=== PATIENT | female | born 1945 | race Caucasian/White ===

== ENCOUNTER 2018-11-24 09:36 | Day surgery (SDC) | payer OTHER ==
[2018-11-22 10:37] VITALS: BMI 26.6
[2018-11-24] MEDS ORDERED: LIDOCAINE HCL/PF 2% SDV 5ML VIAL ONE (09:41)
[2018-11-24] MEDS ORDERED: PROPOFOL 20 ML ONE (09:43)
[2018-11-24 12:08] VITALS: BP 110/68; PULSE 71; TEMP 97.8
--- NOTE | 2018-11-26 16:32 | PATH ---
Surgical Pathology Report Patient Name: LUIS E LONGORIA [facility]. Rec. #: [id number] /Age/Gender: 1945 (Age: 73) / F Account: [id number] Location: [facility] Taken: 11/24/2018 Received: 11/24/2018 Reported: 11/26/2018 Physicians: Marie Rodrigez M.D. Specimen(s) Received A: BX SECOND PORTION DUODENUM B: BX GASTRIC ANTRUM C: BX GE JUNCTION Clinical History GERD, dyspepsia Postoperative diagnosis: Gastritis Final Diagnosis A. SECOND PORTION OF DUODENUM, BIOPSY: DUODENAL MUCOSA WITH NO PATHOLOGIC FINDINGS. B. GASTRIC ANTRUM, BIOPSY: MILD CHRONIC GASTRITIS. IMMUNOSTAIN IS NEGATIVE FOR H. PYLORI ORGANISMS. C. GE JUNCTION, BIOPSY: ESOPHAGOGASTRIC JUNCTIONAL (SQUAMOCOLUMNAR) MUCOSA SHOWING MILD CHRONIC INFLAMMATION. NEGATIVE FOR INTESTINAL METAPLASIA. Electronically Signed Marjan Amaya M.D. Gross Description A. Received in formalin, labeled "biopsy second portion of duodenum" are 2 nelson, irregular portions of soft tissue measuring 0.2 and 0.3 cm. in greatest dimension. The specimens are submitted in toto in one cassette. B. Received in formalin, labeled "biopsy gastric antrum" is a nelson, irregular portion of soft tissue measuring 0.3 cm. in greatest dimension. The specimen is submitted in toto in one cassette. C. Received in formalin, labeled "biopsy GE junction" is a nelson, irregular portion of soft tissue measuring 0.7 cm. in greatest dimension. The specimen is submitted in toto in one cassette. 11/25/2018 [facility]11/25/2018
== END 2018-11-24 12:07 | disposition home or self-care (01) ==
LOC: FASU-ENDO 09:36
PROVIDERS: ATTEND Internal Medicine Gastroenterology
PROC: 0DB68ZX Excision of Stomach, Via Natural or Artificial Opening Endoscopic, Diagnostic (ICD-10-PCS; 2018-11-24)
PROC: 0DB48ZX Excision of Esophagogastric Junction, Via Natural or Artificial Opening Endoscopic, Diagnostic (ICD-10-PCS; 2018-11-24)
PROC: 0DB98ZX Excision of Duodenum, Via Natural or Artificial Opening Endoscopic, Diagnostic (ICD-10-PCS; principal; 2018-11-24 10:56)
DX: K29.50 Unspecified chronic gastritis without bleeding (principal); K20.9 Esophagitis, unspecified; K74.60 Unspecified cirrhosis of liver
CPT/HCPCS: 88305-TC; 88342-TC

== ENCOUNTER 2018-12-16 09:01 | Day surgery (SDC) | payer OTHER | END 2018-12-16 17:30 | disposition home or self-care (01) | LOC: JASU-SURG 09:01 ==

== ENCOUNTER 2019-03-17 12:55 | Day surgery (SDC) | payer OTHER ==
[2019-03-16 16:10] VITALS: BMI 26.8
[~2019-03-17 12:55] MED LIST: HEPARIN NA (PORCINE) 5,000 UNITS/ML 1ML VIAL SQ ONE; LIDOCAINE HCL 1%, 10 MG/ML (20ML VIAL) INF ONE
[2019-03-17] MEDS ORDERED: HEPARIN NA (PORCINE) 5,000 UNITS/ML 1ML VIAL ONE ×2 (13:27→15:56)
[2019-03-17] MEDS ORDERED: LIDOCAINE HCL 1%, 10 MG/ML (20ML VIAL) ONE (13:27)
[2019-03-17 13:57] LABS: BASO % 0.9 % (0-2.0); HEMATOCRIT 36.7 % (32.4-45.2); HEMOGLOBIN 11.8 GM/dL (10.7-15.3); MCH 23.8 pg (25.7-33.7); MEAN CELL VOLUME 74.5 fl (80-96); MEAN PLT VOLUME 7.9 fl (7.5-11.1); MONO % 8.8 % (3.8-10.2); NEUT % 56.3 % (42.8-82.8); PLATELET COUNT 208 K/MM3 (134-434); RBC 4.93 M/mm3 (3.60-5.2); RDW 16.7 % (11.6-15.6); WHITE BLOOD COUNT 6.2 K/mm3 (4.0-10.0)
[2019-03-17 14:09] LABS: INR 1.12 (0.83-1.09); PROTHROMBIN TIME (PATIENT) 13.2 SEC (9.7-13.0)
[2019-03-17 14:27] LABS: ALBUMIN 3.8 g/dl (3.4-5.0); BILIRUBIN,TOTAL 0.4 mg/dL (0.2-1); BLOOD UREA NITROGEN 10.4 mg/dL (7-18); CALCIUM 9.7 mg/dL (8.5-10.1); CREATININE 0.8 mg/dL (0.55-1.3); POTASSIUM 4.2 mmol/L (3.5-5.1); TOT PROT 8.6 g/dl (6.4-8.2)
[2019-03-17] MEDS ORDERED: MIDAZOLAM HCL 2 MG/2 ML SINGLE DOSE VIAL ONE ×2 (15:07→15:30)
[2019-03-17] MEDS ORDERED: ceFAZolin SODIUM 1 GM VIAL ONE (15:07)
[2019-03-17] MEDS ORDERED: ceFAZolin SODIUM 1 GM VIAL IVPB ONE (15:15)
[2019-03-17] MEDS ORDERED: PROPOFOL 20 ML ONE (15:21)
[2019-03-17] MEDS ORDERED: PROMETHAZINE HCL 25 MG/1 ML VIAL IVPUSH PRN (15:24)
[2019-03-17] MEDS ORDERED: ONDANSETRON 4 MG/2 ML VIAL IVPUSH PRN (15:24)
[2019-03-17] MEDS ORDERED: HYDROmorphone HCl 2 MG/ML VIAL IVPB ONE (15:27)
[2019-03-17] MEDS ORDERED: LACTATED RINGERS SOLUTION 1,000 ML IV SCH (15:30)
[2019-03-17] MEDS ORDERED: LIDOCAINE HCL 1%, 10 MG/ML (20ML VIAL) INF ONE (15:37)
--- NOTE | 2019-03-17 16:30 | HP ---
Admitting History and Physical - Admission Chief Complaint: right lower ext claudication less than 2 blocks. Limitations to Obtaining History: No Limitations - Past Medical History Cardiovascular: Yes: HTN Hepatobiliary: Yes: Cirrhosis, Hepatitis C ...: No - Past Surgical History Past Surgical History: Yes: Appendectomy, Oopherectomy - Smoking History Smoking history: Former smoker Have you smoked in the past 12 months: Yes Aproximately how many cigarettes per day: 10 If you are a former smoker, when did you quit?: 4 months ago - Alcohol/Substance Use Hx Alcohol Use: No Home Medications - Allergies Allergies/Adverse Reactions: Allergies Allergy/AdvReac Type Severity Reaction Status Date / Time No Known Allergies Allergy Verified 03/17/19 13:48 - Home Medications Home Medications: Ambulatory Orders Cholecalciferol (Vitamin D3) [Vitamin D3] 2,000 unit PO DAILY 04/12/15 Losartan Potassium 50 mg PO DAILY 04/12/15 Pantoprazole Sodium [Protonix -] 40 mg PO DAILY 04/12/15 Acetaminophen [Tylenol .Regular Strength -] 650 mg PO Q4H PRN #0 tablet propRANOLol HCL [Inderal] 40 mg PO DAILY 11/22/18 Clopidogrel Bisulfate [Plavix -] 75 mg PO DAILY #30 tablet 03/01/19 Review of Systems - Review of Systems Constitutional: reports: No Symptoms Eyes: reports: No Symptoms HENT: reports: No Symptoms Neck: reports: No Symptoms Cardiovascular: reports: No Symptoms Respiratory: reports: No Symptoms Gastrointestinal: reports: No Symptoms Genitourinary: reports: No Symptoms Musculoskeletal: reports: No Symptoms Integumentary: reports: No Symptoms Neurological: reports: No Symptoms Endocrine: reports: No Symptoms Hematology/Lymphatic: reports: No Symptoms Psychiatric: reports: No Symptoms Physical Examination Vital Signs: Vital Signs Temperature 97.9 F 03/17/19 13:47 Pulse Rate 72 03/17/19 13:47 Respiratory Rate 20 03/17/19 13:47 Blood Pressure 147/74 03/17/19 13:47 O2 Sat by Pulse Oximetry (%) 97 03/17/19 13:47 Constitutional: Yes: Well Nourished, No Distress, Calm Eyes: Yes: WNL, Conjunctiva Clear, EOM Intact HENT: Yes: WNL, Atraumatic, Normocephalic Neck: Yes: WNL, Supple, Trachea Midline Cardiovascular: Yes: WNL, Regular Rate and Rhythm Respiratory: Yes: WNL, Regular, CTA Bilaterally Gastrointestinal: Yes: WNL, Normal Bowel Sounds Musculoskeletal: Yes: WNL Extremities: Yes: WNL Edema: No Peripheral Pulses WNL: No Integumentary: Yes: WNL Neurological: Yes: WNL, Alert, Oriented ...Motor Strength: WNL Psychiatric: Yes: WNL Labs: CBC, BMP 03/17/19 13:12 03/17/19 13:12 Problem List - Problems (1) Claudication of right lower extremity Assessment/Plan: For angiogram today Code(s): I73.9 - PERIPHERAL VASCULAR DISEASE, UNSPECIFIED
[2019-03-17] MEDS ORDERED: CLOPIDOGREL BISULFATE 75 MG TABLET (FP) PO ONE ×2 (16:31→16:42)
--- NOTE | 2019-03-17 16:34 | OP ---
Operative Note - Note: Operative Date: 03/17/19 Pre-Operative Diagnosis: RLE claudication Operation: Aortogram, RLE angiogram, right external iliac artery angioplasty Findings: 95% stenosis right ext iliac artery Post-Operative Diagnosis: Same as Pre-op Surgeon: Erasmo Mosley Anesthesia: Fractional Estimated Blood Loss (mls): 50 Operative Report Dictated: Yes
[2019-03-17] MEDS ORDERED: CLOPIDOGREL BISULFATE 75 MG TABLET (FP) ONE (16:39)
--- NOTE | 2019-03-17 16:59 | EKG ---
Test Reason : Blood Pressure : / mmHG Vent. Rate : 070 BPM Atrial Rate : 070 BPM P-R Int : 140 ms QRS Dur : 084 ms QT Int : 402 ms P-R-T Axes : -02 009 034 degrees QTc Int : 434 ms NORMAL SINUS RHYTHM NONSPECIFIC ST ABNORMALITY ABNORMAL ECG NO PREVIOUS ECGS AVAILABLE Confirmed by PORFIRIO LEE MD ([id number]) on 03/17/2019 4:59:22 PM Referred By: HANK POLK Confirmed By:PORFIRIO LEE MD
[2019-03-17 18:59] VITALS: BP 146/65; PULSE 82; TEMP 97.9
--- NOTE | 2019-03-21 10:12 | OP ---
DATE OF OPERATION: 03/17/2019 PREOPERATIVE DIAGNOSIS: Right lower extremity claudication. POSTOPERATIVE DIAGNOSIS: Right lower extremity claudication. PROCEDURE: Aortogram, right lower extremity angiogram, right external iliac artery angioplasty. SURGEON: Erasmo Polk DO ANESTHESIA: Fractional. BLOOD LOSS: 50 mL. INDICATIONS: Patient is a 73-year-old female complaining of less than less than 1 block claudication. 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 The patient was cleared from a medical and cardiology standpoint and came in through ambulatory surgery. The patient was then consented for the procedure understanding all risks, benefits, alternatives then brought to the operating room. DESCRIPTION OF PROCEDURE: Once in the operating room, was laid on the operating room table in supine manner, and the area of the left and right groin was prepped and draped in a sterile surgical manner. We injected 10 mL of lidocaine 1% over the left common femoral artery. We then took our micropuncture needle, punctured left common femoral artery. Micropuncture wire was inserted. Micropuncture sheath was inserted, and a traditional 5-Urdu sheath was inserted. We then placed a 0.035 floppy guidewire up into the aorta followed by Omni Flush catheter. We then shot an aortogram via hand injection showing that the aorta and the iliac arteries were without any disease. We then placed a 0.035 floppy guidewire up and over to the right common femoral artery, and Omni Flush catheter followed. We then shot an angiogram of the right lower extremity showing that the common femoral artery and the profunda were patent. The SFA was patent. The popliteal artery was patent. However, the bigger problem that the patient has is that the right distal external iliac artery has a 95% stenosis, and that was found on our initial aortogram and our right lower extremity angiogram, so at this point, it was decided that the main issue with the patient is that she has a 95% right external iliac artery stenosis. At this point, we placed a 0.035 stiff guidewire into the SFA. IV heparin 5000 units were administered to the patient. We then went ahead and used a 5 x 8 Ultraverse balloon, and we were able to perform angioplasty of the distal right external iliac artery. Once that was completed, we shot an aortogram again showing that the right external iliac artery was now patent. There was no dissection, and there was good, brisk flow, and the patient had a good right femoral pulse now. At this point, no more intervention was needed. We brought out Omni Flush catheter up and over. We then placed StarClose device. It was then deployed in the left common femoral artery successfully, and the sheath was removed. Pressure was held for 5 minutes. After there was no more bleeding, the area was wet and dried, and Dermabond was placed. Patient tolerated the procedure without complication. Patient transferred to the PACU in stable condition. ERASMO POLK DO [id number]
== END 2019-03-17 18:45 | disposition home or self-care (01) ==
LOC: JASU-SURG 12:55
PROVIDERS: ATTEND Surgery Vascular Surgery
PROC: B40DYZZ Plain Radiography of Aorta and Bilateral Lower Extremity Arteries using Other Contrast (ICD-10-PCS; 2019-03-17)
PROC: 047H3ZZ Dilation of Right External Iliac Artery, Percutaneous Approach (ICD-10-PCS; principal; 2019-03-17 15:00)
DX: I70.211 Atherosclerosis of native arteries of extremities with intermittent claudication, right leg (principal); I10 Essential (primary) hypertension; B19.20 Unspecified viral hepatitis C without hepatic coma
CPT/HCPCS: 37220; C1725; 36415; 76000-TC-FY; 80053; 85025; 85610; 86850; 86900; 86901; 93005; 93010; 94760; J1644

== ENCOUNTER 2019-03-25 08:59 | Day surgery (SDC) | payer OTHER ==
[2019-03-25 12:46] VITALS: BMI 26.8
[2019-03-25] MEDS ORDERED: HEPARIN NA (PORCINE) 5,000 UNITS/ML 1ML VIAL ONE ×2 (13:03→14:04)
[2019-03-25] MEDS ORDERED: LIDOCAINE HCL 1%, 10 MG/ML (20ML VIAL) ONE (13:03)
[2019-03-25] MEDS ORDERED: MIDAZOLAM HCL 2 MG/2 ML SINGLE DOSE VIAL ONE ×2 (14:00→14:21)
[2019-03-25] MEDS ORDERED: SUCCINYLCHOLINE CHLORIDE 200 MG/10 ML SYRINGE ONE (14:00)
[2019-03-25] MEDS ORDERED: PROPOFOL 20 ML ONE (14:00)
[2019-03-25] MEDS ORDERED: LIDOCAINE HCL/PF 2% SDV 5ML VIAL ONE (14:04)
[2019-03-25] MEDS ORDERED: ceFAZolin SODIUM 1 GM VIAL ONE (14:04)
[2019-03-25] MEDS ORDERED: ceFAZolin SODIUM 1 GM VIAL IVPB ONE (14:10)
[2019-03-25] MEDS ORDERED: LIDOCAINE HCL 1%, 10 MG/ML (20ML VIAL) INF ONE (14:16)
--- NOTE | 2019-03-25 15:24 | HP ---
Admitting History and Physical - Admission Chief Complaint: Left lower extremity clauidication Limitations to Obtaining History: No Limitations - Past Medical History Cardiovascular: Yes: HTN Hepatobiliary: Yes: Cirrhosis, Hepatitis C - Past Surgical History Past Surgical History: Yes: Appendectomy, Oopherectomy - Smoking History Smoking history: Former smoker Have you smoked in the past 12 months: Yes Aproximately how many cigarettes per day: 10 If you are a former smoker, when did you quit?: 4 months ago - Alcohol/Substance Use Hx Alcohol Use: No Home Medications - Allergies Allergies/Adverse Reactions: Allergies Allergy/AdvReac Type Severity Reaction Status Date / Time No Known Allergies Allergy Verified 03/17/19 13:48 - Home Medications Home Medications: Ambulatory Orders Cholecalciferol (Vitamin D3) [Vitamin D3] 2,000 unit PO DAILY 04/12/15 Losartan Potassium 50 mg PO DAILY 04/12/15 Pantoprazole Sodium [Protonix -] 40 mg PO DAILY 04/12/15 Acetaminophen [Tylenol .Regular Strength -] 650 mg PO Q4H PRN #0 tablet propRANOLol HCL [Inderal] 40 mg PO DAILY 11/22/18 Clopidogrel Bisulfate [Plavix -] 75 mg PO DAILY #30 tablet 03/01/19 Review of Systems - Review of Systems Constitutional: reports: No Symptoms Eyes: reports: No Symptoms HENT: reports: No Symptoms Neck: reports: No Symptoms Cardiovascular: reports: No Symptoms Respiratory: reports: No Symptoms Gastrointestinal: reports: No Symptoms Genitourinary: reports: No Symptoms Breasts: reports: No Symptoms Reported Musculoskeletal: reports: No Symptoms Integumentary: reports: No Symptoms Neurological: reports: No Symptoms Endocrine: reports: No Symptoms Hematology/Lymphatic: reports: No Symptoms Psychiatric: reports: No Symptoms Physical Examination Vital Signs: Vital Signs Temperature 97.5 F L 03/25/19 12:40 Pulse Rate 68 03/25/19 12:40 Respiratory Rate 18 03/25/19 12:40 Blood Pressure 149/71 03/25/19 12:40 O2 Sat by Pulse Oximetry (%) 96 03/25/19 12:31 Constitutional: Yes: Well Nourished, No Distress, Calm Eyes: Yes: WNL, Conjunctiva Clear, EOM Intact HENT: Yes: WNL, Atraumatic, Normocephalic Neck: Yes: WNL, Supple, Trachea Midline Cardiovascular: Yes: WNL, Regular Rate and Rhythm Respiratory: Yes: WNL, Regular, CTA Bilaterally Gastrointestinal: Yes: WNL, Normal Bowel Sounds Musculoskeletal: Yes: WNL Extremities: Yes: WNL Edema: No Peripheral Pulses WNL: No Integumentary: Yes: WNL Neurological: Yes: WNL, Alert, Oriented ...Motor Strength: WNL Psychiatric: Yes: WNL Problem List - Problems (1) Claudication of left lower extremity Assessment/Plan: for angiogram today Code(s): I73.9 - PERIPHERAL VASCULAR DISEASE, UNSPECIFIED
--- NOTE | 2019-03-25 15:26 | OP ---
Operative Note - Note: Operative Date: 03/25/19 Pre-Operative Diagnosis: Left lower extremity claudication Operation: Aortogram, LLE angiogram, LABORATORY TECHNICIAN, SFA angioplasty, EIA/LABORATORY TECHNICIAN stent placement Findings: EIA,LABORATORY TECHNICIAN occlusion/stenosis Post-Operative Diagnosis: Same as Pre-op Surgeon: Erasmo Mosley Anesthesia: Fractional Estimated Blood Loss (mls): 50
[2019-03-25] MEDS ORDERED: ACETAMINOPHEN INJECTION 100 ML IVPB ONE (15:36)
[2019-03-25] MEDS ORDERED: ONDANSETRON 4 MG/2 ML VIAL ONE (15:36)
[2019-03-25] MEDS ORDERED: LACTATED RINGERS SOLUTION 1,000 ML IV SCH (15:45)
[2019-03-25] MEDS ORDERED: ONDANSETRON 4 MG/2 ML VIAL IVPUSH PRN (15:45)
[2019-03-25] MEDS ORDERED: ACETAMINOPHEN 1000 MG/100 ML VIAL (NON FORMULARY) IVPB ONE (15:55)
[2019-03-25] MEDS ORDERED: oxyCODONE HCL 5 MG TABLET PO PRN (17:05)
[2019-03-25] MEDS ORDERED: ACETAMINOPHEN 325 MG TABLET (FP) PO PRN (17:05)
[2019-03-25] MEDS ORDERED: ELECTROLYTE-148 SOLN 1,000 ML IV SCH (17:15)
[2019-03-25] MEDS: oxyCODONE HCL 5 MG TABLET PO PRN (18:30)
[2019-03-26 07:46] VITALS: BP 110/67; PULSE 68; TEMP 98.4
[2019-03-26 08:13] LABS: BASO % 0.4 % (0-2.0); EOS % 1.9 % (0-4.5); HEMOGLOBIN 9.8 GM/dL (10.7-15.3); LYMPH % 21.2 % (8-40); MCH 24.2 pg (25.7-33.7); MCHC 32.7 g/dl (32.0-36.0); MEAN CELL VOLUME 74.2 fl (80-96); MEAN PLT VOLUME 8.1 fl (7.5-11.1); MONO % 8.2 % (3.8-10.2); NEUT % 68.3 % (42.8-82.8); PLATELET COUNT 156 K/MM3 (134-434); RBC 4.05 M/mm3 (3.60-5.2); RDW 16.7 % (11.6-15.6); WHITE BLOOD COUNT 5.9 K/mm3 (4.0-10.0)
[2019-03-26] MEDS ORDERED: LOSARTAN POTASSIUM 50 MG TABLET (FP) PO SCH (10:00)
[2019-03-26] MEDS ORDERED: CLOPIDOGREL BISULFATE 75 MG TABLET (FP) PO SCH (10:00)
[2019-03-26] MEDS: oxyCODONE HCL 5 MG TABLET PO PRN (10:16)
--- NOTE | 2019-03-30 20:39 | OP ---
DATE OF OPERATION: 03/25/2019 PREOPERATIVE DIAGNOSIS: Left lower extremity claudication. POSTOPERATIVE DIAGNOSIS: Left lower extremity claudication. PROCEDURE: Aortogram, left common femoral artery and left superficial femoral artery angioplasty, common femoral artery stent placement. SURGEON: Erasmo Polk DO ANESTHESIA: Fractional. BLOOD LOSS: 50 mL. The patient is a 73-year-old female who comes in complaining of numbness and claudication in the left leg. She had a right external iliac artery angioplasty performed 1 week prior, and now she comes in with left lower extremity pain. She had an ultrasound performed, showing that there is a common femoral artery occlusion on the left side. It was decided that she would need an angiogram. Patient came in to ambulatory surgery. Patient was consented for the procedure, understanding all risks, benefits, alternatives. She was then taken to the operating room. Once in the operating room, she was laid in the operating room table in a supine manner. The area of the right and left groin were prepped and draped in a sterile surgical manner. We then injected 10 mL of lidocaine 1% over the right common femoral artery. Using ultrasound guidance, we were able to visualize the right common femoral artery and a micropuncture needle was used to puncture it. Micropuncture wire was inserted. Micropuncture sheath was inserted, and a 5-Slovak sheath was inserted. A 0.035 floppy guidewire was inserted in the aorta followed by Omni Flush catheter. We then shot an aortogram via hand injection, showing the aorta and the iliac arteries were without any disease. We then looked at the left common femoral artery from the aorta via hand injection, and showed that there was a focal occlusion there. At this point, we placed a 0.035 floppy guidewire down to the left common femoral artery occlusion. Omni Flush catheter followed, and we were able to get the wire down into the profunda. We then placed a 6 x 45 Crossover sheath and 5000 units of IV heparin was administered to the patient. We were then able to cross our occlusion and place our wire into the SFA. We then performed angioplasty of the common femoral artery using a 5 x 4 Ultraverse balloon. Completion angiogram showed that the occlusion was still there and it was flow limiting. We then went ahead and placed a 6 x 4 LifeStent, and that was ballooned in place using a 5 x 4 balloon. Completion angiogram now showed that the common femoral artery was patent but the SFA still was stenotic in the proximal portion. We went ahead and a 5 x 150 balloon and performed angioplasty of the SFA. Completion angiogram now showed that the SFA was patent, the stent was patent, and there was good runoff all the way into the foot, and patient had a palpable DP pulse. At this point, no more intervention was needed. We brought our sheath up and over. StarClose device was not used in this case, and we removed the sheath and pressure was held on the right groin for 5 minutes. After there was no more bleeding, the area was wet and dried and Dermabond was placed. The patient tolerated this procedure with no complications. Patient was transferred to PACU in stable condition. ERASMO POLK DO [id number]
== END 2019-03-26 12:18 | disposition home or self-care (01) ==
LOC: JWC 08:59 → JASU-SURG 08:59 → EDSTATUS 09:00 → J8W 17:54 → JASU-SURG 03-26 12:18
PROVIDERS: ATTEND Surgery Vascular Surgery
PROC: 047L3DZ Dilation of Left Femoral Artery with Intraluminal Device, Percutaneous Approach (ICD-10-PCS; 2019-03-25)
PROC: B40DYZZ Plain Radiography of Aorta and Bilateral Lower Extremity Arteries using Other Contrast (ICD-10-PCS; principal; 2019-03-25 14:00)
DX: I70.212 Atherosclerosis of native arteries of extremities with intermittent claudication, left leg (principal)
CPT/HCPCS: 37226; 76937; C1877; 36415; 76000-TC-FY; 85025; 93926-TC; 94760; G0463-25; J0131; J1644

== ENCOUNTER 2019-03-28 14:56 | Emergency (ER) | payer OTHER ==
--- NOTE | 2019-03-28 15:14 | PDOC ---
History of Present Illness - General Chief Complaint: Edema Stated Complaint: ECCHYMOSIS AND SWELLING TO POST SURGICAL SITE LEF Time Seen by Provider: 03/28/19 15:04 History Source: Patient Exam Limitations: No Limitations - History of Present Illness Initial Comments: 03/28/19 15:09 73 y/o female with bruising to left groin and abdomen after procedure by Dr. Mosley on Thursday for blocked artery. Patient had left leg done a few months ago, and Thursday had right leg done, but they went through the left side. No more swollen and bruised. Concerned about left lower abdomen pain. On Plavix. No fever or chills. No N/V/D/C. Used to be a smoker. No recent fall or trauma. Associated Symptoms: denies: fever/chills, weakness Past History - Past Medical History Allergies/Adverse Reactions: Allergies Allergy/AdvReac Type Severity Reaction Status Date / Time No Known Allergies Allergy Verified 03/28/19 15:01 Home Medications: Ambulatory Orders Cholecalciferol (Vitamin D3) [Vitamin D3] 2,000 unit PO DAILY 04/12/15 Losartan Potassium 50 mg PO DAILY 04/12/15 Pantoprazole Sodium [Protonix -] 40 mg PO DAILY 04/12/15 Acetaminophen [Tylenol .Regular Strength -] 650 mg PO Q4H PRN #0 tablet propRANOLol HCL [Inderal] 40 mg PO DAILY 11/22/18 Clopidogrel Bisulfate [Plavix -] 75 mg PO DAILY #30 tablet 03/01/19 Anemia: No Asthma: No Cancer: No Cardiac Disorders: Yes (mitral valve leak) CVA: No COPD: No CHF: No Dementia: No Diabetes: No GI Disorders: No Disorders: No HTN: Yes Hypercholesterolemia: No Liver Disease: Yes (cirrhosis) Seizures: No Thyroid Disease: No - Surgical History Abdominal Surgery: No Appendectomy: Yes Cardiac Surgery: No Cholecystectomy: No Lung Surgery: No Neurologic Surgery: Yes (BACK SURGERY) Orthopedic Surgery: Yes (BACK SURGERY) - Suicide/Smoking/Psychosocial Hx Smoking History: Former smoker Have you smoked in the past 12 months: Yes Number of Cigarettes Smoked Daily: 10 If you are a former smoker, when did you quit?: 4 months ago Hx Alcohol Use: No Drug/Substance Use Hx: No Substance Use Type: None Hx Substance Use Treatment: No Review of Systems - Review of Systems Able to Perform ROS?: Yes Is the patient limited Spanish proficient: No Constitutional: No: Chills, Fever Respiratory: No: Shortness of Breath Cardiac (ROS): No: Chest Pain, Edema ABD/GI: No: Diarrhea, Nausea, Vomiting : No: Dysuria Musculoskeletal: No: Back Pain Integumentary: Yes: Bruising Neurological: No: Numbness, Paresthesia All Other Systems: Reviewed and Negative *Physical Exam - Physical Exam General Appearance: Yes: Nourished, Appropriately Dressed. No: Apparent Distress HEENT: positive: EOMI, RAHAT, Normal ENT Inspection, Normal Voice, Pharynx Normal Neck: positive: Trachea midline, Normal Thyroid, Supple. negative: Tender, Rigid Respiratory/Chest: positive: Lungs Clear, Normal Breath Sounds. negative: Chest Tender, Respiratory Distress Cardiovascular: positive: Regular Rhythm, Regular Rate, S1, S2. negative: Edema , JVD, Murmur Vascular Pulses: Femoral (R): 4+, Femoral (L): 4+, Carotid (R): 4+, Carotid (L) : 4+, Dorsalis-Pedis (R): 4+, Doralis-Pedis (L): 4+ Gastrointestinal/Abdominal: positive: Normal Bowel Sounds, Tender (LLQ and groin tenderness, ecchymotic, no warmth noted, no RLQ or right groin pain, no RUQ or LUQ tenderness +BS), Flat, Soft. negative: Organomegaly, Pulsatile Mass Lymphatic: negative: Adenopathy, Tenderness, Other Musculoskeletal: positive: Normal Inspection. negative: CVA Tenderness Extremity: positive: Normal Capillary Refill, Normal Inspection, Normal Range of Motion, Tender, Pelvis Stable, Other (pulses 2+/4 b/l in LE, no focal deficits noted, warm). negative: Calf Tenderness Integumentary: positive: Normal Color, Dry, Warm, Ecchymosis, Bruising ( ecchymosis to left groin and LLQ abdomen noted, with tenderness). negative: Erythema, Clammy, Rash, Swelling Neurologic: positive: director of trauma II-XII NML intact, Fully Oriented, Alert, Normal Mood/ Affect, Normal Response, Motor Strength /5 ED Treatment Course - LABORATORY CBC & Chemistry Diagram: 03/28/19 15:35 03/28/19 15:35 - ADDITIONAL ORDERS Additional order review: 03/28/19 17:48 Patient doing well, labs normal Spoke with Dr. Dill in Radiology, CT abd/pelvis shows no abscess or hemorrhage, small hematoma at surgical site Will discharge home, follow up with Dr. Erasmo Mosley Tylenol, rest If worsen return to ER 03/28/19 18:05 Call put out [address] Erasmo Mosley's service, no return call Pt wishes to go home felling better. - RADIOLOGY Radiology Studies Ordered: Category Date Time Status ABDOMEN & PELVIS CT WITH CONTR [CT] Stat CT Scan 03/28/19 15:08 Ordered *DC/Admit/Observation/Transfer Diagnosis at time of Disposition: Hematoma of abdominal wall Qualifiers: Encounter type: initial encounter Qualified Code(s): S30.1XXA - Contusion of abdominal wall, initial encounter - Discharge Dispostion Disposition: HOME Condition at time of disposition: Stable Decision to Admit order: No - Referrals Referrals: Christian Zeng MD [Primary Care Provider] - - Patient Instructions Printed Discharge Instructions: DI for Hematoma (Bruise) Additional Instructions: Ice, Tylenol, rest Follow up with Dr. Mosley If worsen return to ER - Post Discharge Activity
[2019-03-28 15:15] VITALS: BMI 26.8
[2019-03-28 15:43] LABS: BASO % 3.3 % (0-2.0); EOS % 1.3 % (0-4.5); HEMATOCRIT 31.3 % (32.4-45.2); HEMOGLOBIN 10.1 GM/dl (10.7-15.3); LYMPH % 22.2 % (8-40); MCH 24.3 pg (25.7-33.7); MCHC 32.1 g/dl (32.0-36.0); MEAN CELL VOLUME 75.6 fl (80-96); MEAN PLT VOLUME 8.4 fl (7.5-11.1); MONO % 9.6 % (3.8-10.2); NEUT % 63.6 % (42.8-82.8); PLATELET COUNT 187 K/MM3 (134-434); RBC 4.14 M/mm3 (3.60-5.2); WHITE BLOOD COUNT 7.7 K/mm3 (4.0-10.8)
[2019-03-28 15:53] LABS: ALBUMIN 3.3 g/dl (3.4-5.0); BILIRUBIN,TOTAL 0.6 mg/dl (0.2-1); CALCIUM 8.9 mg/dl (8.5-10); CREATININE 0.6 mg/dl (0.55-1.3); POTASSIUM 3.8 mmol/L (3.5-5.1); TOT PROT 7.5 g/dl (6.4-8.2)
[2019-03-28 18:21] VITALS: BP 150/64; PULSE 78; TEMP 98.8
== END 2019-03-28 18:21 | disposition home or self-care (01) ==
LOC: FER 14:56
DX: S30.1XXA Contusion of abdominal wall, initial encounter (principal); Z87.891 Personal history of nicotine dependence; I10 Essential (primary) hypertension; X58.XXXA Exposure to other specified factors, initial encounter; Y93.89 Activity, other specified; Y92.89 Other specified places as the place of occurrence of the external cause
CPT/HCPCS: 36415; 74177-TC; 80053; 85025; 99282-25

== ENCOUNTER 2019-08-01 11:51 | Inpatient (IN) | payer OTHER ==
[2019-08-01] MEDS ORDERED: SODIUM CHLORIDE 1,000 ML IV STA (12:00)
--- NOTE | 2019-08-01 12:08 | PDOC ---
History of Present Illness - General Chief Complaint: Shortness of Breath Stated Complaint: SOB Time Seen by Provider: 08/01/19 12:07 History Source: Patient - History of Present Illness Initial Comments: 08/01/19 13:30 Ms. Nieves is a 73 y/o woman w/hx recent mitral valve replacement (06/28/2019) with afib s/p procedure p/w two days of shortness of breath, worsened today. She reports that for the last two days she has noted increased dyspnea on exertion as well as palpitations. She reports that today her symptoms worsened and she became increasingly short of breath, and called for EMS. EMS identified afib w/RVR (HR 130s) and administered Cardizem. Heart rate decreased to 82 prior to arrival. At this time she denies any palpitations, but reports some ongoing shortness of breath, improved from before cardizem administration. She denies any cough, fevers, chills, weakness, confusion, chest pain. Past History - Past Medical History Allergies/Adverse Reactions: Allergies Allergy/AdvReac Type Severity Reaction Status Date / Time No Known Allergies Allergy Verified 08/01/19 12:43 Home Medications: Ambulatory Orders Cholecalciferol (Vitamin D3) [Vitamin D3] 2,000 unit PO DAILY 04/12/15 Pantoprazole Sodium [Protonix -] 40 mg PO DAILY 04/12/15 Clopidogrel Bisulfate [Plavix -] 75 mg PO DAILY #30 tablet 03/01/19 Furosemide 20 mg PO DAILY 08/01/19 HYDROmorphone [Dilaudid -] 2 mg PO Q4H PRN 08/01/19 Losartan Potassium 25 mg PO DAILY 08/01/19 Metoprolol Tartrate [Lopressor] 50 mg PO BID 08/01/19 Potassium Chloride 10 meq PO DAILY 08/01/19 Spironolactone 25 mg PO DAILY 08/01/19 Warfarin Sodium 2 mg PO HS 08/01/19 Anemia: No Asthma: No Cancer: No Cardiac Disorders: Yes (mitral valve leak) CVA: No COPD: No CHF: No Dementia: No Diabetes: No GI Disorders: No Disorders: No HTN: Yes Hypercholesterolemia: No Liver Disease: Yes (cirrhosis) Seizures: No Thyroid Disease: No - Surgical History Abdominal Surgery: No Appendectomy: Yes Cardiac Surgery: No Cholecystectomy: No Lung Surgery: No Neurologic Surgery: Yes (BACK SURGERY) Orthopedic Surgery: Yes (BACK SURGERY) - Psycho Social/Smoking Cessation Hx Smoking History: Former smoker Have you smoked in the past 12 months: Yes Number of Cigarettes Smoked Daily: 10 If you are a former smoker, when did you quit?: 4 months ago Hx Alcohol Use: No Drug/Substance Use Hx: No Substance Use Type: None Hx Substance Use Treatment: No Review of Systems - Review of Systems Able to Perform ROS?: Yes Comments:: 08/01/19 13:46 ROS: GENERAL/CONSTITUTIONAL: No fever or chills. No weakness. HEAD, EYES, EARS, NOSE AND THROAT: No change in vision. No ear pain or discharge. No sore throat. CARDIOVASCULAR: Shortness of breath, palpitations. No chest pain RESPIRATORY: No cough, wheezing, or hemoptysis. GASTROINTESTINAL: No nausea, vomiting, diarrhea or constipation. GENITOURINARY: No dysuria, frequency, or change in urination. MUSCULOSKELETAL: No joint or muscle swelling or pain. No neck or back pain. SKIN: No rash NEUROLOGIC: No headache, vertigo, loss of consciousness, or change in strength/ sensation. ENDOCRINE: No increased thirst. No abnormal weight change HEMATOLOGIC/LYMPHATIC: No anemia, easy bleeding, or history of blood clots. ALLERGIC/IMMUNOLOGIC: No hives or skin allergy. *Physical Exam - Physical Exam 08/01/19 13:47 PE: GENERAL: Awake, alert, and fully oriented, in no acute distress HEAD: No signs of trauma, normocephalic, atraumatic EYES: PERRLA, EOMI, sclera anicteric, conjunctiva clear ENT: Auricles normal inspection, hearing grossly normal, nares patent, oropharynx clear without exudates. Moist mucosa NECK: Normal ROM, supple, no lymphadenopathy, JVD, or masses LUNGS: No distress, speaks full sentences, clear to auscultation bilaterally HEART: Regular rate and rhythm, normal S1 and S2, no murmurs, rubs or gallops, peripheral pulses normal and equal bilaterally. ABDOMEN: Soft, nontender, normoactive bowel sounds. No guarding, no rebound. No masses EXTREMITIES : Normal inspection, Normal range of motion, no edema. No clubbing or cyanosis NEUROLOGICAL: Cranial nerves II through XII grossly intact. Normal speech, normal gait, no focal sensorimotor deficits SKIN: Warm, Dry, normal turgor, no rashes or lesions noted ED Treatment Course - LABORATORY CBC & Chemistry Diagram: 08/01/19 12:25 08/01/19 12:25 Medical Decision Making - Medical Decision Making 08/01/19 13:40 73F w/recent mitral valve replacement with resultant afib previously requiring cardioversion p/w shortness of breath, afib w/RVR identified prior to arrival. ACS, CHF, infection also possible as cause of rvr. Plan: CBC CMP Cardiac profile PT/INR, APTT EKG CXR Cardizem 10mg po Cardiology consult (Dr. Anjana Baca) Dispo: Admit telemetry obs --- Case discussed with Dr. Baca. Plan for telemetry obs. She will evaluate today. 08/01/19 13:47 On reassessment of HR - 82 s/p Cardizem 10mg po Discharge - Discharge Information Problems reviewed: Yes Clinical Impression/Diagnosis: Atrial fibrillation with RVR Condition: Stable - Admission Yes - Follow up/Referral Referrals: Christian Zeng MD [Primary Care Provider] - - Patient Discharge Instructions - Post Discharge Activity
[2019-08-01 12:40] LABS: HEMOGLOBIN 9.2 GM/dL (10.7-15.3); LYMPH % 23.1 % (8-40); MCH 23.8 pg (25.7-33.7); MCHC 30.8 g/dl (32.0-36.0); MEAN CELL VOLUME 77.2 fl (80-96); MEAN PLT VOLUME 8.1 fl (7.5-11.1); NEUT % 65.9 % (42.8-82.8); PLATELET COUNT 203 K/MM3 (134-434); RBC 3.89 M/mm3 (3.60-5.2); RDW 20.7 % (11.6-15.6); WHITE BLOOD COUNT 6.8 K/mm3 (4.0-10.0)
--- NOTE | 2019-08-01 12:48 | PDOC ---
Documentation entered by Darlene Sheppard SCRIBE, acting as scribe for Netta Hernández MD. Netta Hernández MD: This documentation has been prepared by the [employer] Brenda, SCRIBE, under my direction and personally reviewed by me in its entirety. I confirm that the documentation accurately reflects all work, treatment, procedures, and medical decision making performed by me. Attending Attestation - Resident Resident Name: SilviaDiego - ED Attending Attestation I have performed the following: I have examined & evaluated the patient, The case was reviewed & discussed with the resident, I agree w/resident's findings & plan, Exceptions are as noted - HPI HPI: 08/01/19 12:26 The patient is a 73 year old female with a PMH of HTN, status post mitral valve replacement (currently on Plavix) Patient presents to the ER via EMS due to shortness of breath, weakness. Found to have atrial fibrillation by medics. Patient was given Cardizem with improvement of her rapid rate. Patient currently denies chest pain. Still remains a bit weak, short of breath. No fevers or chills. No cough Surgical Hx: Appendectomy, Back surgery Social Hx: Tobacco use PCP: Christian Zeng 08/01/19 12:46 - Physicial Exam PE: 08/01/19 12:47 GENERAL: The patient is in no acute distress. ENT: Ears normal, nares patent, oropharynx clear without exudates. Moist mucous membranes. NECK: Normal range of motion, supple LUNGS: Irregularly irregular, rate is normal, no murmurs HEART:Regular rate and rhythm, normal S1 and S2 without murmur, rub or gallop. ABDOMEN: Soft, nontender, normoactive bowel sounds. EXTREMITIES: Normal range of motion, no edema. NEUROLOGICAL: Cranial nerves II through XII grossly intact. Normal speech. No focal neurological deficits. SKIN: Warm, Dry, normal turgor, no rashes or lesions noted. - Medical Decision Making 08/01/19 12:47 EKG: Atrial fibrillation, rate of 88 bpm, axis is normal, intervals are normal, artifact at baseline, no obvious ST elevations or depressions, T waves are diffusely flattened, no pathological Q 08/01/19 12:48 Laboratory Tests 03/28/19 08/01/19 15:35 12:25 WBC 7.7 6.8 Hgb 10.1 L 9.2 L Hct 31.3 L D 30.0 L Plt Count 187 203 D Chest x-ray: We will contact Dr. Baca 08/01/19 13:29 Laboratory Tests 08/01/19 08/01/19 12:25 12:25 BUN 19.4 H Creatinine 1.0 Creatine Kinase 137 Troponin I < 0.[address] Baca She agrees with observation admission Anticoagulation per Dr Baca Clinical impression: post op Afib, initial presentation
[2019-08-01] MEDS ORDERED: dilTIAZem HCL 30 MG TABLET (FP) PO ONE (12:52)
[2019-08-01 12:53] LABS: INR 1.85 (0.83-1.09)
[2019-08-01 12:56] LABS: ACTIVATED PTT 38.5 SECONDS (25.2-36.5)
[2019-08-01] MEDS ORDERED: dilTIAZem HCL 30 MG TABLET (FP) ONE (13:07)
--- NOTE | 2019-08-01 13:19 | EKG ---
Test Reason : Blood Pressure : / mmHG Vent. Rate : 088 BPM Atrial Rate : 073 BPM P-R Int : 000 ms QRS Dur : 092 ms QT Int : 458 ms P-R-T Axes : 000 -03 209 degrees QTc Int : 554 ms ATRIAL FIBRILLATION INCOMPLETE RIGHT BUNDLE BRANCH BLOCK NONSPECIFIC T WAVE ABNORMALITY ABNORMAL ECG WHEN COMPARED WITH ECG OF 17-MAR-2019 13:22, ATRIAL FIBRILLATION HAS REPLACED SINUS RHYTHM T WAVE VARIATION Confirmed by MUMTAZ CUI, CELESTE ([id number]) on 08/01/2019 1:19:11 PM Referred By: Confirmed By:CELESTE PANDYA MD
[2019-08-01 13:28] LABS: ALBUMIN 3.2 g/dl (3.4-5.0); BILIRUBIN,TOTAL 0.4 mg/dL (0.2-1); BLOOD UREA NITROGEN 19.4 mg/dL (7-18); CALCIUM 8.9 mg/dL (8.5-10.1); TOT PROT 7.5 g/dl (6.4-8.2)
[2019-08-01 13:40] LABS: ANISOCYTOSIS 1+
--- NOTE | 2019-08-01 13:58 | HP ---
Admitting History and Physical - Primary Care Physician PCP: Christian Zeng - Admission Chief Complaint: shortness of breath and palpations History Source: Patient Limitations to Obtaining History: No Limitations - Past Medical History Cardiovascular: Yes: HTN Hepatobiliary: Yes: Cirrhosis, Hepatitis C - Past Surgical History Past Surgical History: Yes: Appendectomy, Oopherectomy, Valve Replacement (MVR(t ) 06/28/19) - Smoking History Smoking history: Former smoker Have you smoked in the past 12 months: Yes Aproximately how many cigarettes per day: 10 If you are a former smoker, when did you quit?: 4 months ago - Alcohol/Substance Use Hx Alcohol Use: No - Social History Usual Living Arrangement: Yes: Alone, Other (staying with daughter for last month) ADL: Family Assistance Occupation: retired History of Recent Travel: No Home Medications - Allergies Allergies/Adverse Reactions: Allergies Allergy/AdvReac Type Severity Reaction Status Date / Time No Known Allergies Allergy Verified 08/01/19 12:43 - Home Medications Home Medications: Ambulatory Orders Cholecalciferol (Vitamin D3) [Vitamin D3] 2,000 unit PO DAILY 04/12/15 Pantoprazole Sodium [Protonix -] 40 mg PO DAILY 04/12/15 Clopidogrel Bisulfate [Plavix -] 75 mg PO DAILY #30 tablet 03/01/19 Furosemide 20 mg PO DAILY 08/01/19 HYDROmorphone [Dilaudid -] 2 mg PO Q4H PRN 08/01/19 Losartan Potassium 25 mg PO DAILY 08/01/19 Metoprolol Tartrate [Lopressor] 50 mg PO BID 08/01/19 Potassium Chloride 10 meq PO DAILY 08/01/19 Spironolactone 25 mg PO DAILY 08/01/19 Warfarin Sodium 2 mg PO HS 08/01/19 Family Medical History Family History: Unremarkable Review of Systems - Review of Systems Constitutional: reports: No Symptoms Eyes: reports: No Symptoms HENT: reports: No Symptoms Neck: reports: No Symptoms Cardiovascular: reports: Palpitations, Shortness of Breath Respiratory: reports: Cough, Exercise Intolerance, SOB, SOB on Exertion Gastrointestinal: reports: No Symptoms Genitourinary: reports: No Symptoms Breasts: reports: No Symptoms Reported Musculoskeletal: reports: No Symptoms Integumentary: reports: No Symptoms Neurological: reports: No Symptoms Endocrine: reports: No Symptoms Hematology/Lymphatic: reports: No Symptoms Psychiatric: reports: No Symptoms Physical Examination Vital Signs: Vital Signs Temperature 97.5 F L 08/01/19 12:15 Pulse Rate 107 H 08/01/19 13:00 Respiratory Rate 18 08/01/19 13:00 Blood Pressure 122/104 H 08/01/19 13:00 O2 Sat by Pulse Oximetry (%) 100 08/01/19 13:00 Constitutional: Yes: Well Nourished, Calm, Mild Distress (from SOB) Eyes: Yes: WNL, Conjunctiva Clear, EOM Intact HENT: Yes: WNL, Atraumatic, Normocephalic Neck: Yes: WNL Cardiovascular: Yes: Tachycardia, Pulse Irregular, Other (AF with RVR) Gastrointestinal: Yes: WNL, Normal Bowel Sounds ...Rectal Exam: Yes: Deferred Breast(s): Yes: WNL Musculoskeletal: Yes: WNL Extremities: Yes: WNL Edema: No Peripheral Pulses WNL: Yes Peripheral Pulses: Left Radial: 2+, Right Radial: 2+, Left Doralis Pedis: 2+, Right Dorsalis Pedis: 2+, Left Femoral: 2+, Right Femoral: 2+ Neurological: Yes: WNL, Alert, Oriented ...Motor Strength: WNL Psychiatric: Yes: WNL Labs: CBC, BMP 08/01/19 12:25 08/01/19 12:25 Imaging - Results Chest X-ray: Image Reviewed (sternal wires noted. BL effusions with increased PVC) Problem List - Problems (1) Prophylactic measure Assessment/Plan: FEN Fluids: no additional fluids-dose of lasix to be given Electrolytes: monitor & replete as needed Nutrition: low sodium diet DVT moderate risk on coumadin Dispo admit to tele full code discharge planning Code(s): Z29.9 - ENCOUNTER FOR PROPHYLACTIC MEASURES, UNSPECIFIED (2) HCV (hepatitis C virus) Assessment/Plan: chronic HCV Code(s): B19.20 - UNSPECIFIED VIRAL HEPATITIS C WITHOUT HEPATIC COMA (3) Cirrhosis Assessment/Plan: cirrhosis on imaging Code(s): K74.60 - UNSPECIFIED CIRRHOSIS OF LIVER (4) S/P MVR (mitral valve replacement) Assessment/Plan: recent MVR(t) 07/14 -follows with Dr Baca at [facility] TTE ordered to assess valve and fluid status Code(s): Z95.2 - PRESENCE OF PROSTHETIC HEART VALVE (5) HTN (hypertension) Code(s): I10 - ESSENTIAL (PRIMARY) HYPERTENSION (6) Anticoagulated on Coumadin Assessment/Plan: INR subtherapeutic resume coumadin and reassess INR in am for dose adjustment Code(s): Z79.01 - UROLOGY PHYSICIAN ASSISTANT (CURRENT) USE OF ANTICOAGULANTS (7) Atrial fibrillation with RVR Assessment/Plan: HR 130s in ED-responded to diltiazem 10mg IVP down to 80s remained in AF on metoprol at home c/w metoprol 100mg bid start diltiazem 30mg q6h uptitrating if needed TSH 11, will send T3/4 Code(s): I48.91 - UNSPECIFIED ATRIAL FIBRILLATION (8) Elevated brain natriuretic peptide (BNP) level Assessment/Plan: BNP elevated t0 10,700 lasix 40mg IVP given in ED will start lasix 40mg IV bid and reassess in am Code(s): R79.89 - OTHER SPECIFIED ABNORMAL FINDINGS OF BLOOD CHEMISTRY Visit type - Emergency Visit Emergency Visit: Yes ED Registration Date: 08/01/19 Care time: The patient presented to the Emergency Department on the above date and was hospitalized for further evaluation of their emergent condition. - New Patient This patient is new to me today: Yes Date on this admission: 08/01/19 - Critical Care Critical Care patient: No
[2019-08-01] MEDS ORDERED: dilTIAZem HCL 50 MG/10 ML - 10 ML VIAL IVPUSH ONE (14:16)
[2019-08-01] MEDS ORDERED: dilTIAZem HCL 125 MG/25 ML - 25 ML VIAL ONE (15:26)
[2019-08-01 15:41] LABS: EPI CELLS 6.6 /HPF (0-5/HPF); HYALINE CASTS 17 /lpf (0-8); PH,URINE 5.5 (5.0-8.0); URINE APPEARANCE CLEAR; URINE BACTERIA 47.8 /hpf (NEGATIVE); URINE BILIRUBIN NEGATIVE (NEGATIVE); URINE COLOR YELLOW; URINE GLUCOSE (UA) NEGATIVE (NEGATIVE); URINE KETONE NEGATIVE (NEGATIVE); URINE LEUK ESTERASE NEGATIVE (NEGATIVE); URINE NITRITE NEGATIVE (NEGATIVE); URINE PROTEIN 3+ (NEGATIVE); URINE RBC 1 /hpf (0-4); URINE WBC 4 /hpf (0-5)
[2019-08-01 16:06] LABS: MAGNESIUM 1.8 mg/dL (1.8-2.4); N-TERMINAL BNP 10698.7 pg/ml (5-125)
[2019-08-01] MEDS ORDERED: FUROSEMIDE 40 MG/4 ML INJECTABLE VIAL IVPUSH ONE (16:13)
[2019-08-01] MEDS ORDERED: FUROSEMIDE 40 MG/4 ML INJECTABLE VIAL ONE (16:42)
--- NOTE | 2019-08-01 17:20 | CON.CARD ---
Consult Consult Specialty:: Cardiology Referred by:: Medicine Reason for Consultation:: afib, CHF - History of Present Illness Chief Complaint: shortness of breath History of Present Illness: 73 h/o HTN, mitral stenosis s/p bioMVR and TV repair 06/28/2019, pulm HTN, PAD, afib p/w dyspnea on exertion. Sees me for cardio, recently had MVR, complicated by post op afib now on coumadin. Was s/p cardioversion at [facility] now back in afib, have been increasing metoprolol as an outpatient. Palpitations, dyspnea were improving until two days ago became more short of breath and felt racing heart with even minimal activity. Called EMS today, was in afib with rvr improved with cardizem. Currently no chest pain, palps, dizziness, still short of breath. no edema - Past Medical History Cardio/Vascular: Yes: HTN Hepatobiliary: Yes: Cirrhosis, Hepatitis C - Past Surgical History Past Surgical History: Yes: Appendectomy, Oopherectomy, Valve Replacement (MVR(t ) 06/28/19) - Alcohol/Substance Use Hx Alcohol Use: No - Smoking History Smoking history: Former smoker Have you smoked in the past 12 months: Yes Aproximately how many cigarettes per day: 10 If you are a former smoker, when did you quit?: 4 months ago - Social History ADL: Family Assistance Home Medications - Allergies Allergies/Adverse Reactions: Allergies Allergy/AdvReac Type Severity Reaction Status Date / Time No Known Allergies Allergy Verified 08/01/19 12:43 - Home Medications Home Medications: Ambulatory Orders Cholecalciferol (Vitamin D3) [Vitamin D3] 2,000 unit PO DAILY 04/12/15 Pantoprazole Sodium [Protonix -] 40 mg PO DAILY 04/12/15 Clopidogrel Bisulfate [Plavix -] 75 mg PO DAILY #30 tablet 03/01/19 Furosemide 20 mg PO DAILY 08/01/19 HYDROmorphone [Dilaudid -] 2 mg PO Q4H PRN 08/01/19 Losartan Potassium 25 mg PO DAILY 08/01/19 Metoprolol Tartrate [Lopressor] 50 mg PO BID 08/01/19 Potassium Chloride 10 meq PO DAILY 08/01/19 Spironolactone 25 mg PO DAILY 08/01/19 Warfarin Sodium 2 mg PO HS 08/01/19 Family Medical History Family History: Unremarkable Review of Systems - Review of Systems Constitutional: reports: No Symptoms Eyes: reports: No Symptoms HENT: reports: No Symptoms Neck: reports: No Symptoms Cardiovascular: reports: No Symptoms Respiratory: reports: No Symptoms Gastrointestinal: reports: No Symptoms Genitourinary: reports: No Symptoms Musculoskeletal: reports: No Symptoms Integumentary: reports: No Symptoms Neurological: reports: No Symptoms Endocrine: reports: No Symptoms Hematology/Lymphatic: reports: No Symptoms Psychiatric: reports: No Symptoms Vital Signs: Vital Signs Temperature 97.2 F L 08/01/19 16:30 Pulse Rate 86 08/01/19 16:30 Respiratory Rate 19 08/01/19 16:30 Blood Pressure 123/75 08/01/19 16:30 O2 Sat by Pulse Oximetry (%) 99 08/01/19 16:30 Constitutional: Yes: No Distress, Calm Eyes: Yes: Conjunctiva Clear, EOM Intact HENT: Yes: Atraumatic, Normocephalic Respiratory: Yes: Regular, Rales, Rhonchi Gastrointestinal: Yes: Normal Bowel Sounds, Soft Cardiovascular: Yes: Tachycardia, Pulse Irregular Heart Sounds: Yes: S1, S2 Extremities: No: Cold Edema: No Integumentary: No: Jaundice Neurological: Yes: Alert, Oriented Psychiatric: No: Agitated - Other Data Labs, Other Data: CBC, BMP 08/01/19 12:25 08/01/19 12:25 INR, PTT INR 1.85 (0.83-1.09) H 08/01/19 12:25 Troponin, BNP 08/01/19 08/01/19 12:25 12:25 Troponin I < 0.02 B-Natriuretic Peptide 48587.7 H Troponin, BNP 08/01/19 08/01/19 12:25 12:25 Troponin I < 0.02 B-Natriuretic Peptide 48765.7 H Assessment/Plan bodyEKG 06/2019 afib, IRBBB, no ischemic changes, rate 114 bpm echo 06/2019 post op LV not well seen, prob borderline nl LV function (EF 50%), nl RV size, function, s/p bioMVR mean gradient 10 mmHg at HR 115, minimal MR, s/ p TV repair, no TR TANYA 01/2019 nl LV size/function, mild to mod dec RV function, mild RV dilation, mild AR, MV leaflets thickened and severely calcified/immobile, mean graident 12 mmHg, PG 29 mmHg, MVA by planimetry 1.08 cm2, mod to severe central jet of MR , palmer score at least 12, severe post MAC, mild DC, no LA thrombus, lipomatous interatrial septum, sm pericardial effusion EKG: afib, no ischemic changes CXR: congestive changes and pastor pleural effusions tele: afib with rate 90s-100s, episodes 130s-140s atrial fibrillation - cont home metoprolol succinate 100 mg BID, started on diltiazem 30 mg Q6H - monitoring on tele - cont warfarin, goal INR 2-3 acute diastolic CHF - likely in setting of afib with RVR - most recent echo post op at [facility] EF 50% with LV not well seen, stable bioMVR - repeat echo ordered - cont IV lasix - monitor Cr, lytes, daily weights HTN - cont home meds PAD - cont plavix, coumadin s/p MVR, TV repair - echo as above
[2019-08-01] MEDS ORDERED: dilTIAZem HCL 25 MG/5 ML - 5 ML VIAL IVPUSH PRN (17:24)
[2019-08-01] MEDS ORDERED: WARFARIN NA 2 MG TABLET (UD) PO SCH (18:00)
[2019-08-01] MEDS: dilTIAZem HCL 30 MG TABLET (FP) PO SCH (18:22)
[2019-08-01] MEDS ORDERED: MELATONIN 5 MG TABLETS PO PRN (20:58)
[2019-08-01] MEDS: METOPROLOL TARTRATE 50 MG TABLET (FP) PO SCH (21:36)
[2019-08-01] MEDS ORDERED: METOPROLOL TARTRATE 50 MG TABLET (FP) PO SCH (22:00)
[2019-08-02] MEDS: dilTIAZem HCL 30 MG TABLET (FP) PO SCH ×2 (01:14→06:27)
[2019-08-02] MEDS: FUROSEMIDE 40 MG/4 ML INJECTABLE VIAL IVPUSH SCH ×2 (06:27→13:40)
[2019-08-02 06:41] LABS: BASO % 0.7 % (0-2.0); EOS % 2.7 % (0-4.5); HEMATOCRIT 28.2 % (32.4-45.2); HEMOGLOBIN 9.1 GM/dL (10.7-15.3); LYMPH % 18.8 % (8-40); MCH 24.3 pg (25.7-33.7); MCHC 32.1 g/dl (32.0-36.0); MEAN CELL VOLUME 75.7 fl (80-96); MONO % 8.3 % (3.8-10.2); NEUT % 69.5 % (42.8-82.8); RBC 3.73 M/mm3 (3.60-5.2); RDW 20.8 % (11.6-15.6); WHITE BLOOD COUNT 6.6 K/mm3 (4.0-10.0)
[2019-08-02 07:13] LABS: ALBUMIN 3.2 g/dl (3.4-5.0); BILIRUBIN,TOTAL 0.4 mg/dL (0.2-1); BLOOD UREA NITROGEN 17.6 mg/dL (7-18); CALCIUM 8.6 mg/dL (8.5-10.1); CREATININE 0.8 mg/dL (0.55-1.3); MAGNESIUM 1.5 mg/dL (1.8-2.4); N-TERMINAL BNP 7270.1 pg/ml (5-125); POTASSIUM 3.7 mmol/L (3.5-5.1); TOT PROT 7.3 g/dl (6.4-8.2)
[2019-08-02] MEDS: ACETAMINOPHEN 325 MG TABLET (FP) PO PRN ×2 (07:50→18:36)
[2019-08-02] MEDS ORDERED: ACETAMINOPHEN 325 MG TABLET (FP) ONE (08:10)
--- NOTE | 2019-08-02 09:37 | PN ---
Physical Exam: SUBJECTIVE: Patient seen and examined, at the bedside. no chest pain or shortness of breath. having back pain after straining to get up from a sitting position. OBJECTIVE: back pain: treat with lidoderm patches, ultram 25 x 1, physical therapy, warm compresses ----- Patient is a 73 year old female with a significant past medical history of hypertention, mitral stenosis s/p bioMVR and TV repair 06/28/2019, pulm HTN, PAD , afib p/w dyspnea on exertion. She recently had MVR, complicated by post op afib now on coumadin. [place] [facility] afib. Became more short of breath 2 days prior to admission with racing heart with minimal activity. Brought in by EMS and was found to be in afib with rvr which improved with cardizem. Vital Signs Period Temp Pulse Resp BP Sys/Grullon Pulse Ox Last 24 Hr 97.2 F-98.3 F 75-131 18-32 79-133/57-104 93-100 GENERAL: The patient is awake, alert, and fully oriented, in no acute distress. HEAD: Normal with no signs of trauma. EYES: PERRL, extraocular movements intact, sclera anicteric, conjunctiva clear. No ptosis. ENT: Ears normal, nares patent, oropharynx clear without exudates NECK: Trachea midline, full range of motion, supple. LUNGS: right lungs with mild congestion, left lung clear HEART: irregular, 90s ABDOMEN: Soft, nontender, nondistended, normoactive bowel sounds EXTREMITIES: 2+ pulses, warm, well-perfused, no edema. NEUROLOGICAL: Normal speech, gait not observed. PSYCH: Normal mood, normal affect. SKIN: Warm, dry, normal turgor, no rashes or lesions noted Laboratory Results - last 24 hr 08/01/19 08/01/19 08/01/19 12:25 12:25 12:25 WBC 6.8 RBC 3.89 Hgb 9.2 L Hct 30.0 L MCV 77.2 L MCH 23.8 L MCHC 30.8 L RDW 20.7 H Plt Count 203 D MPV 8.1 Absolute Neuts (auto) 4.5 Neutrophils % 65.9 Lymphocytes % 23.1 Monocytes % 8.0 Eosinophils % 2.0 Basophils % 1.0 Nucleated RBC % 0 Hypochromia 1+ Polychromasia 1+ Anisocytosis 1+ Microcytosis 1+ PT with INR 22.00 H INR 1.85 H PTT (Actin FS) 38.5 H Sodium Potassium Chloride Carbon Dioxide Anion Gap BUN Creatinine Est GFR (CKD-EPI)AfAm Est GFR (CKD-EPI)NonAf Random Glucose Calcium Magnesium Total Bilirubin AST ALT Alkaline Phosphatase Creatine Kinase 137 Troponin I < 0.02 B-Natriuretic Peptide Total Protein Albumin TSH Thyroxine (T4) Urine Color Urine Appearance Urine pH Ur Specific Ola Urine Protein Urine Glucose (UA) Urine Ketones Urine Blood Urine Nitrite Urine Bilirubin Urine Urobilinogen Ur Leukocyte Esterase Urine WBC (Auto) Urine RBC (Auto) Urine Casts (Auto) U Epithel Cells (Auto) Urine Bacteria (Auto) 08/01/19 08/01/19 08/01/19 12:25 12:25 15:30 WBC RBC Hgb Hct MCV MCH MCHC RDW Plt Count MPV Absolute Neuts (auto) Neutrophils % Lymphocytes % Monocytes % Eosinophils % Basophils % Nucleated RBC % Hypochromia Polychromasia Anisocytosis Microcytosis PT with INR INR PTT (Actin FS) Sodium 139 Potassium 4.0 Chloride 108 H Carbon Dioxide 23 Anion Gap 8 BUN 19.4 H Creatinine 1.0 Est GFR (CKD-EPI)AfAm 64.73 Est GFR (CKD-EPI)NonAf 55.85 Random Glucose 104 Calcium 8.9 Magnesium 1.8 Total Bilirubin 0.4 AST 12 L ALT 15 Alkaline Phosphatase 120 H Creatine Kinase Troponin I B-Natriuretic Peptide 87260.7 H Total Protein 7.5 Albumin 3.2 L TSH 11.60 H Thyroxine (T4) Urine Color Yellow Urine Appearance Clear Urine pH 5.5 Ur Specific Ola 1.027 Urine Protein 3+ H Urine Glucose (UA) Negative Urine Ketones Negative Urine Blood Negative Urine Nitrite Negative Urine Bilirubin Negative Urine Urobilinogen 1.0 Ur Leukocyte Esterase Negative Urine WBC (Auto) 4 Urine RBC (Auto) 1 Urine Casts (Auto) 17 U Epithel Cells (Auto) 6.6 Urine Bacteria (Auto) 47.8 08/02/19 08/02/19 08/02/19 05:25 05:25 05:25 WBC 6.6 RBC 3.73 Hgb 9.1 L Hct 28.2 L MCV 75.7 L MCH 24.3 L MCHC 32.1 RDW 20.8 H Plt Count MPV Absolute Neuts (auto) 4.6 Neutrophils % 69.5 Lymphocytes % 18.8 Monocytes % 8.3 Eosinophils % 2.7 Basophils % 0.7 Nucleated RBC % 0 Hypochromia Polychromasia Anisocytosis Microcytosis PT with INR INR PTT (Actin FS) Sodium 139 Potassium 3.7 Chloride 106 Carbon Dioxide 24 Anion Gap 9 BUN 17.6 Creatinine 0.8 Est GFR (CKD-EPI)AfAm 84.77 Est GFR (CKD-EPI)NonAf 73.14 Random Glucose 97 Calcium 8.6 Magnesium 1.5 L Total Bilirubin 0.4 AST 13 L ALT 14 Alkaline Phosphatase 111 Creatine Kinase Troponin I B-Natriuretic Peptide 7270.1 H Total Protein 7.3 Albumin 3.2 L TSH Thyroxine (T4) 8.0 Urine Color Urine Appearance Urine pH Ur Specific Ola Urine Protein Urine Glucose (UA) Urine Ketones Urine Blood Urine Nitrite Urine Bilirubin Urine Urobilinogen Ur Leukocyte Esterase Urine WBC (Auto) Urine RBC (Auto) Urine Casts (Auto) U Epithel Cells (Auto) Urine Bacteria (Auto) Active Medications Generic Name Dose Route Start Last Admin Trade Name Freq PRN Reason Stop Dose Admin Acetaminophen 650 mg 08/02/19 09:24 Tylenol - PO Q6H PRN PAIN LEVEL 1-5 Cholecalciferol 2,000 unit 08/02/19 10:00 Vitamin D3 - PO DAILY [facility] Clopidogrel Bisulfate 75 mg 08/02/19 10:00 Plavix - PO DAILY [facility] Diltiazem HCl 30 mg 08/01/19 18:00 08/02/19 06:27 Cardizem - PO 30 mg Q6HPO [facility] Administration Diltiazem HCl 10 mg 08/01/19 17:24 Cardizem Injection - IVPUSH Q4H PRN TACHYCARDIA Furosemide 40 mg 08/02/19 06:00 08/02/19 06:27 Lasix Injection - IVPUSH 40 mg BID@0600,1400 [facility] Administration Losartan Potassium 25 mg 08/02/19 10:00 Cozaar - PO DAILY [facility] Melatonin 5 mg 08/01/19 20:58 08/02/19 01:14 Melatonin PO 5 mg HS PRN Administration INSOMNIA Metoprolol Tartrate 100 mg 08/01/19 22:00 08/01/19 21:36 Lopressor - PO 100 mg BID [facility] Administration Pantoprazole Sodium 40 mg 08/02/19 10:00 Protonix - PO DAILY [facility] Spironolactone 25 mg 08/02/19 10:00 Aldactone - PO DAILY [facility] Warfarin Sodium 2 mg 08/01/19 18:00 08/01/19 18:21 Coumadin - PO 2 mg DAILY@1800 [facility] Administration ASSESSMENT/PLAN: Problem List - Problems (1) Anticoagulated on Coumadin Assessment/Plan: check inr now on coumadin for afib on metoprolol succinate 100 mg BID, inc diltiazem to 60 mg Q6H monitor on tele ing goal 2-3 per cardiology, has event monitor and EP follow [place] [facility] [place] Code(s): Z79.01 - VENDETTE (CURRENT) USE OF ANTICOAGULANTS (2) Atrial fibrillation with RVR Assessment/Plan: check inr now on coumadin for afib on metoprolol succinate 100 mg BID, inc diltiazem to 60 mg Q6H monitor on tele ing goal 2-3 per cardiology, has event monitor and EP follow [place] planned [place] [facility] [place] Code(s): I48.91 - UNSPECIFIED ATRIAL FIBRILLATION (3) Elevated brain natriuretic peptide (BNP) level Assessment/Plan: trended down Code(s): R79.89 - OTHER SPECIFIED ABNORMAL FINDINGS OF BLOOD CHEMISTRY (4) HTN (hypertension) Assessment/Plan: controlled on toprol Code(s): I10 - ESSENTIAL (PRIMARY) HYPERTENSION (5) Prophylactic measure Code(s): Z29.9 - ENCOUNTER FOR PROPHYLACTIC MEASURES, UNSPECIFIED (6) S/P MVR (mitral valve replacement) Assessment/Plan: cardiology following Code(s): Z95.2 - PRESENCE OF PROSTHETIC HEART VALVE Visit type - Emergency Visit Emergency Visit: Yes ED Registration Date: 08/01/19 Care time: The patient presented to the Emergency Department on the above date and was hospitalized for further evaluation of their emergent condition. - New Patient This patient is new to me today: Yes Date on this admission: 08/02/19 - Critical Care Critical Care patient: No - Discharge Referral Referred to [facility] No
[2019-08-02] MEDS ORDERED: FUROSEMIDE 20 MG TABLET (FP) PO SCH (10:00)
[2019-08-02 10:01] LABS: MEAN PLT VOLUME 8.1 fl (7.5-11.1); PLATELET COUNT 185 K/MM3 (134-434)
[2019-08-02] MEDS: CHOLECALCIFEROL (VIT D3) 1,000 UNIT (25 MCG) TABLET PO SCH (10:16)
[2019-08-02] MEDS: METOPROLOL TARTRATE 50 MG TABLET (FP) PO SCH ×2 (10:16→21:39)
[2019-08-02] MEDS: LOSARTAN POTASSIUM 25 MG TABLET PO SCH (10:17)
[2019-08-02] MEDS: SPIRONOLACTONE 25 MG TABLET (FP) PO SCH (10:17)
[2019-08-02] MEDS: CLOPIDOGREL BISULFATE 75 MG TABLET (FP) PO SCH (10:17)
[2019-08-02] MEDS: PANTOPRAZOLE 20 MG TABLET (FP) PO SCH (10:17)
--- NOTE | 2019-08-02 11:54 | PN ---
Progress Note (short form) - Note Progress Note: s: sob improving, worse with exertion. complains of palps. no chest pain, dizziness, edema Current Medications Acetaminophen (Tylenol -) 650 mg PO Q6H PRN PRN Reason: PAIN LEVEL 1-5 Cholecalciferol (Vitamin D3 -) 2,000 unit PO DAILY [facility] Last Admin: 08/02/19 10:16 Dose: 2,000 unit Clopidogrel Bisulfate (Plavix -) 75 mg PO DAILY [facility] Last Admin: 08/02/19 10:17 Dose: 75 mg Diltiazem HCl (Cardizem Injection -) 10 mg IVPUSH Q4H PRN PRN Reason: TACHYCARDIA Diltiazem HCl (Cardizem -) 60 mg PO Q6HPO [facility] Furosemide (Lasix Injection -) 40 mg IVPUSH BID@0600,1400 [facility] Last Admin: 08/02/19 06:27 Dose: 40 mg Losartan Potassium (Cozaar -) 25 mg PO DAILY [facility] Last Admin: 08/02/19 10:17 Dose: 25 mg Melatonin (Melatonin) 5 mg PO HS PRN PRN Reason: INSOMNIA Last Admin: 08/02/19 01:14 Dose: 5 mg Metoprolol Tartrate (Lopressor -) 100 mg PO BID [facility] Last Admin: 08/02/19 10:16 Dose: 100 mg Pantoprazole Sodium (Protonix -) 40 mg PO DAILY [facility] Last Admin: 08/02/19 10:17 Dose: 40 mg Spironolactone (Aldactone -) 25 mg PO DAILY [facility] Last Admin: 08/02/19 10:17 Dose: 25 mg Warfarin Sodium (Coumadin -) 2 mg PO DAILY@1800 [facility] Last Admin: 08/01/19 18:21 Dose: 2 mg Vital Signs Period Temp Pulse Resp BP Sys/Grullon Pulse Ox Last 24 Hr 97.2 F-98.3 F 75-131 18-32 79-133/57-104 93-100 Constitutional: Yes: No Distress, Calm Eyes: Yes: Conjunctiva Clear, EOM Intact HENT: Yes: Atraumatic, Normocephalic Respiratory: Yes: Regular, Rales, Rhonchi Gastrointestinal: Yes: Normal Bowel Sounds, Soft Cardiovascular: Yes: Tachycardia, Pulse Irregular Heart Sounds: Yes: S1, S2 Extremities: No: Cold Edema: No Integumentary: No: Jaundice Neurological: Yes: Alert, Oriented Psychiatric: No: Agitated Assessment/Plan EKG 06/2019 afib, IRBBB, no ischemic changes, rate 114 bpm echo 06/2019 post op LV not well seen, prob borderline nl LV function (EF 50%), nl RV size, function, s/p bioMVR mean gradient 10 mmHg at HR 115, minimal MR, s/ p TV repair, no TR TANYA 01/2019 nl LV size/function, mild to mod dec RV function, mild RV dilation, mild AR, MV leaflets thickened and severely calcified/immobile, mean graident 12 mmHg, PG 29 mmHg, MVA by planimetry 1.08 cm2, mod to severe central jet of MR , palmer score at least 12, severe post MAC, mild MD, no LA thrombus, lipomatous interatrial septum, sm pericardial effusion EKG: afib, no ischemic changes CXR: congestive changes and pastor pleural effusions tele: afib with rate 100s-110s, episodes 130s-140s atrial fibrillation - cont home metoprolol succinate 100 mg BID, inc diltiazem to 60 mg Q6H - monitoring on tele - cont warfarin, goal INR 2-3 - has event monitor and EP follow up planned at [facility] [place] later this month - s/p successful DCCV during admission for MVR, however has been in afib since at least initial post op visit acute diastolic CHF - likely in setting of afib with RVR - most recent echo post op at [facility] [place] EF 50% with LV not well seen, stable bioMVR - repeat echo ordered - cont IV lasix - replete lytes for K>4, Mg >2 - monitor Cr, lytes, daily weights HTN - cont home meds PAD - cont plavix, coumadin s/p MVR, TV repair - echo as above
--- NOTE | 2019-08-02 12:53 | ECHO ---
Name: VON, LUIS E Exam:Adult Echocardiogram Study Date: 08/02/2019 08:37 AM Age: 73 yrs Height: 65 in Weight: 160 lb BSA: 1.8 m2 MMode/2D Measurements & Calculations IVSd: 0.99 cm Ao root diam: 2.3 cm LVIDd: 5.4 cm LA dimension: 5.1 cm LVIDs: 4.0 cm ACS: 1.6 cm LVPWd: 0.99 cm IVSs: 0.81 cm LVPWs: 1.5 cm EDV(Teich): 142.7 ml ESV(Michaelich): 71.4 ml RV S Arpit: 6.3 cm/sec Doppler Measurements & Calculations MV V2 max: 220.8 cm/sec MV E max arpit: 234.7 cm/sec MV max P.5 mmHg MV A max arpit: 68.0 cm/sec MV V2 mean: 114.8 cm/sec MV E/A: 3.5 MV mean P.9 mmHg MV dec time: 0.32 sec MV V2 VTI: 48.1 cm Ao V2 max: 205.1 cm/sec LV V1 max P.1 mmHg Ao max P.8 mmHg LV V1 mean P.8 mmHg Ao V2 mean: 136.7 cm/sec LV V1 max: 88.7 cm/sec Ao mean P.8 mmHg LV V1 mean: 64.3 cm/sec Ao V2 VTI: 45.2 cm LV V1 VTI: 17.4 cm TR max arpit: 260.9 cm/sec PA V2 max: 49.9 cm/sec TR max P.4 mmHg PA max P.99 mmHg PI end-d arpit: 85.5 cm/sec Med Peak E' Arpit: 5.1 cm/sec Med E/e': 46.3 Lat Peak E' Arpit: 6.2 cm/sec Lat E/e': 37.6 Procedure A two-dimensional transthoracic echocardiogram with color flow and Doppler was performed. The study w as technically limited with all images being suboptimal in quality. The study was technically difficult with many images being suboptimal in quality. The patient was in atrial fibrillation with controlled ventricula r rate during the exam. Left Ventricle The left ventricle is not well visualized. Left ventricular systolic function is grossly normal. Ejec tion Fraction = 50-55%. Right Ventricle The right ventricle is grossly normal size. The right ventricular systolic function is grossly normal . Atria The left atrium is moderately dilated. The right atrium is mildly dilated. Mitral Valve There is a bioprosthetic mitral valve. The prosthetic mitral valve is well-seated. The mitral valve m liza gradient is 7 mmHg at a heart rate of 75 BPM. There is trace mitral regurgitation. Tricuspid Valve An annuloplasty ring is noted in the tricuspid position. The tricuspid valve is not well visualized, but is grossly normal. There is mild tricuspid regurgitation. Right ventricular systolic pressure is elevate d at 30- 40mmHg. Aortic Valve The aortic valve opens well. There is mild aortic sclerosis.;. No aortic regurgitation is present. Pulmonic Valve The pulmonic valve is not well visualized. The pulmonic valve is not well seen, but is grossly normal . Trace pulmonic valvular regurgitation. Great Vessels The aortic root is normal size. Pericardium/Pleura There is no pericardial effusion. Interpretation Summary The study was technically difficult with many images being suboptimal in quality. Left ventricular systolic function is grossly normal. The right ventricular systolic function is grossly normal. The left atrium is moderately dilated. The right atrium is mildly dilated. There is a bioprosthetic mitral valve. The prosthetic mitral valve is well-seated. The mitral valve mean gradient is 7 mmHg at a heart rate of 75 BPM. There is trace mitral regurgitation. The tricuspid valve is not well visualized, but is grossly normal. An annuloplasty ring is noted in the tricuspid position. There is mild tricuspid regurgitation. There is mild aortic sclerosis.; Trace pulmonic valvular regurgitation. There is no pericardial effusion. MD Ye Valle 08/02/2019 12:52 PM
[2019-08-02] MEDS: dilTIAZem HCL 60 MG TABLET (FP) PO SCH ×2 (13:40→18:30)
[2019-08-02] MEDS ORDERED: traMADol HCL 50 MG TABLET PO ONE (14:20)
[2019-08-02] MEDS: LIDOCAINE 5% TOPICAL PATCH TP SCH (14:40)
[2019-08-02] MEDS ORDERED: WARFARIN NA 3 MG TABLET PO SCH (18:00)
[2019-08-02 18:06] LABS: INR 1.68 (0.83-1.09); PROTHROMBIN TIME (PATIENT) 19.9 SEC (9.7-13.0)
[2019-08-02] MEDS ORDERED: ACETAMINOPHEN 500 MG TABLET (FP) PO ONE (20:00)
[2019-08-02] MEDS ORDERED: diphenhydrAMINE HCL 25 MG CAPSULE (FP) PO ONE (20:00)
[2019-08-02] MEDS: LIDOCAINE PATCH REMOVAL MC SCH (21:39)
[2019-08-03] MEDS: dilTIAZem HCL 60 MG TABLET (FP) PO SCH ×5 (00:30→17:17)
[2019-08-03] MEDS: FUROSEMIDE 40 MG/4 ML INJECTABLE VIAL IVPUSH SCH ×2 (06:20→15:47)
[2019-08-03 07:09] LABS: EOS % 3.6 % (0-4.5); HEMATOCRIT 28.6 % (32.4-45.2); HEMOGLOBIN 9.1 GM/dL (10.7-15.3); LYMPH % 20.8 % (8-40); MCH 24.2 pg (25.7-33.7); MCHC 31.7 g/dl (32.0-36.0); MEAN CELL VOLUME 76.3 fl (80-96); MEAN PLT VOLUME 8.1 fl (7.5-11.1); MONO % 10.1 % (3.8-10.2); NEUT % 64.5 % (42.8-82.8); PLATELET COUNT 182 K/MM3 (134-434); RBC 3.76 M/mm3 (3.60-5.2); RDW 20.6 % (11.6-15.6); WHITE BLOOD COUNT 5.5 K/mm3 (4.0-10.0)
[2019-08-03 07:53] LABS: INR 1.86 (0.83-1.09); PROTHROMBIN TIME (PATIENT) 22.1 SEC (9.7-13.0)
[2019-08-03 08:09] LABS: ALBUMIN 3.2 g/dl (3.4-5.0); BILIRUBIN,TOTAL 0.3 mg/dL (0.2-1); BLOOD UREA NITROGEN 24.4 mg/dL (7-18); CALCIUM 8.7 mg/dL (8.5-10.1); CREATININE 1.1 mg/dL (0.55-1.3); MAGNESIUM 1.7 mg/dL (1.8-2.4); TOT PROT 7.2 g/dl (6.4-8.2)
[2019-08-03] MEDS ORDERED: MAGNESIUM OXIDE 400 MG TABLET (FP) PO ONE (08:41)
[2019-08-03] MEDS: LIDOCAINE 5% TOPICAL PATCH TP SCH (09:24)
[2019-08-03] MEDS: METOPROLOL TARTRATE 50 MG TABLET (FP) PO SCH (10:59)
[2019-08-03] MEDS: LOSARTAN POTASSIUM 25 MG TABLET PO SCH (10:59)
[2019-08-03] MEDS: CHOLECALCIFEROL (VIT D3) 1,000 UNIT (25 MCG) TABLET PO SCH (11:00)
[2019-08-03] MEDS: PANTOPRAZOLE 20 MG TABLET (FP) PO SCH (11:00)
[2019-08-03] MEDS: SPIRONOLACTONE 25 MG TABLET (FP) PO SCH (11:00)
[2019-08-03] MEDS: CLOPIDOGREL BISULFATE 75 MG TABLET (FP) PO SCH (11:00)
--- NOTE | 2019-08-03 11:52 | PN ---
Progress Note (short form) - Note Progress Note: s: sob worse today. stable palps. no chest pain, dizziness, edema former smoker Current Medications Acetaminophen (Tylenol -) 650 mg PO Q6H PRN PRN Reason: PAIN LEVEL 1-5 Last Admin: 08/02/19 18:36 Dose: 650 mg Cholecalciferol (Vitamin D3 -) 2,000 unit PO DAILY [facility] Last Admin: 08/03/19 11:00 Dose: 2,000 unit Clopidogrel Bisulfate (Plavix -) 75 mg PO DAILY [facility] Last Admin: 08/03/19 11:00 Dose: 75 mg Diltiazem HCl (Cardizem Injection -) 10 mg IVPUSH Q4H PRN PRN Reason: TACHYCARDIA Diltiazem HCl (Cardizem -) 60 mg PO Q6HPO [facility] Last Admin: 08/03/19 09:23 Dose: 60 mg Furosemide (Lasix Injection -) 80 mg IVPUSH BID@0600,1400 [facility] Lidocaine (Lidoderm Patch -) 1 patch TP DAILY [facility] Last Admin: 08/03/19 09:24 Dose: 1 patch Losartan Potassium (Cozaar -) 25 mg PO DAILY [facility] Last Admin: 08/03/19 10:59 Dose: 25 mg Melatonin (Melatonin) 5 mg PO HS PRN PRN Reason: INSOMNIA Last Admin: 08/02/19 01:14 Dose: 5 mg Metoprolol Succinate (Toprol Xl -) 100 mg PO BID [facility] Miscellaneous (Lidoderm Patch Removal) 1 each MC DAILY@2200 [facility] Last Admin: 08/02/19 21:39 Dose: 1 each Pantoprazole Sodium (Protonix -) 40 mg PO DAILY [facility] Last Admin: 08/03/19 11:00 Dose: 40 mg Spironolactone (Aldactone -) 25 mg PO DAILY [facility] Last Admin: 08/03/19 11:00 Dose: 25 mg Warfarin Sodium (Coumadin -) 3 mg PO DAILY@1800 [facility] Last Admin: 08/02/19 18:30 Dose: 3 mg Vital Signs Period Temp Pulse Resp BP Sys/Grullon Pulse Ox Last 24 Hr 97.5 F-98.8 F 52-125 18-20 89-125/50-67 99 Constitutional: Yes: No Distress, Calm Eyes: Yes: Conjunctiva Clear, EOM Intact HENT: Yes: Atraumatic, Normocephalic Respiratory: Yes: Regular, Rales, Rhonchi Gastrointestinal: Yes: Normal Bowel Sounds, Soft Cardiovascular: Yes: Tachycardia, Pulse Irregular Heart Sounds: Yes: S1, S2 Extremities: No: Cold Edema: No Integumentary: No: Jaundice Neurological: Yes: Alert, Oriented Psychiatric: No: Agitated Assessment/Plan EKG 06/2019 afib, IRBBB, no ischemic changes, rate 114 bpm echo 06/2019 post op LV not well seen, prob borderline nl LV function (EF 50%), nl RV size, function, s/p bioMVR mean gradient 10 mmHg at HR 115, minimal MR, s/ p TV repair, no TR TANYA 01/2019 nl LV size/function, mild to mod dec RV function, mild RV dilation, mild AR, MV leaflets thickened and severely calcified/immobile, mean gradient 12 mmHg, PG 29 mmHg, MVA by planimetry 1.08 cm2, mod to severe central jet of MR , palmer score at least 12, severe post MAC, mild OH, no LA thrombus, lipomatous interatrial septum, sm pericardial effusion EKG: afib, no ischemic changes CXR: congestive changes and pastor pleural effusions tele: afib with rate 100s-110s, frequent episodes 130s-140s, overnight rates 30s -40s atrial fibrillation - cont home metoprolol succinate 100 mg BID, increaed diltiazem to 60 mg Q6H - herberth and pauses overnight - meds were held this morning, d/w RN AM meds given now, would not hold for overnight bradycardia - cont warfarin, goal INR 2-3 - CHF likely in setting of afib which is poorly controlled, now with herberth episodes and pauses overnight. would continue current meds for rate control and uptitrate as tolerated - case d/w Dr. Angie TAYLOR at [facility] [place] -consider transfer for inpatient cardioversion to [facility] if not improving (high risk for TANYA/DCCV given multiple comorbidities and reportedly asystolic during prior DCCV) acute diastolic CHF - likely in setting of afib with RVR - most recent echo post op at [facility] [place] EF 50% with LV not well seen, stable bioMVR - nl LV function on echo here - Cr stable, weight stable - inc lasix to 80 mg IV BID - replete lytes for K>4, Mg >2 - monitor Cr, lytes, daily weights HTN - cont home meds PAD - cont plavix, coumadin s/p MVR, TV repair 06/2019 - stable on echo
[2019-08-03] MEDS ORDERED: traMADol HCL 50 MG TABLET PO ONE (13:00)
[2019-08-03] MEDS ORDERED: traMADol HCL 50 MG TABLET PO PRN (13:28)
--- NOTE | 2019-08-03 13:29 | PN ---
Physical Exam: SUBJECTIVE: Patient seen and examined at the bedside. denies chest pain, still short of breath with physical exertion and continues to requires 2 liters of nasal cannula. OBJECTIVE: Patient is a 73 year old female with a significant past medical history of hypertension, mitral stenosis s/p bioMVR and TV repair 06/28/2019, pulm HTN, PAD , afib p/w dyspnea on exertion. She recently had MVR, complicated by post op afib now on coumadin. Was s/p cardioversion at [facility] [place] now back in afib. Became more short of breath 2 days prior to admission with racing heart with minimal activity. Brought in by EMS and was found to be in afib with rvr which improved with cardizem. tele reviewed: herberth overnight 30s, 40s, with pauses. medications held this am. per cardiology, possible transfer to [facility] for cardioversion if not improving Vital Signs Period Temp Pulse Resp BP Sys/Grullon Pulse Ox Last 24 Hr 97.5 F-98.8 F 52-125 18-20 89-125/50-67 99 GENERAL: The patient is awake, alert, and fully oriented, in no acute distress. HEAD: Normal with no signs of trauma. EYES: PERRL, extraocular movements intact, sclera anicteric, conjunctiva clear. No ptosis. ENT: Ears normal, nares patent, oropharynx clear without exudates NECK: Trachea midline, full range of motion, supple. LUNGS: right lungs with mild congestion, left lung clear HEART: irregular, 90s ABDOMEN: Soft, nontender, nondistended, normoactive bowel sounds EXTREMITIES: 2+ pulses, warm, well-perfused, no edema. NEUROLOGICAL: Normal speech, gait not observed. PSYCH: Normal mood, normal affect. SKIN: Warm, dry, normal turgor, no rashes or lesions noted Laboratory Results - last 24 hr 08/02/19 08/02/19 08/03/19 05:25 16:15 05:45 WBC 5.5 RBC 3.76 Hgb 9.1 L Hct 28.6 L MCV 76.3 L MCH 24.2 L MCHC 31.7 L RDW 20.6 H Plt Count 182 MPV 8.1 Absolute Neuts (auto) 3.5 Neutrophils % 64.5 Lymphocytes % 20.8 Monocytes % 10.1 Eosinophils % 3.6 Basophils % 1.0 Nucleated RBC % 0 PT with INR 19.90 H INR 1.68 H Sodium Potassium Chloride Carbon Dioxide Anion Gap BUN Creatinine Est GFR (CKD-EPI)AfAm Est GFR (CKD-EPI)NonAf Random Glucose Calcium Magnesium Total Bilirubin AST ALT Alkaline Phosphatase Total Protein Albumin Total T3 99.00 08/03/19 08/03/19 05:45 05:45 WBC RBC Hgb Hct MCV MCH MCHC RDW Plt Count MPV Absolute Neuts (auto) Neutrophils % Lymphocytes % Monocytes % Eosinophils % Basophils % Nucleated RBC % PT with INR 22.10 H INR 1.86 H Sodium 139 Potassium 4.0 Chloride 103 Carbon Dioxide 26 Anion Gap 10 BUN 24.4 H Creatinine 1.1 Est GFR (CKD-EPI)AfAm 57.68 Est GFR (CKD-EPI)NonAf 49.77 Random Glucose 95 Calcium 8.7 Magnesium 1.7 L Total Bilirubin 0.3 AST 11 L ALT 14 Alkaline Phosphatase 115 Total Protein 7.2 Albumin 3.2 L Total T3 Active Medications Generic Name Dose Route Start Last Admin Trade Name Freq PRN Reason Stop Dose Admin Acetaminophen 650 mg 08/02/19 09:24 08/02/19 18:36 Tylenol - PO 650 mg Q6H PRN Administration PAIN LEVEL 1-5 Acetaminophen 500 mg 08/03/19 20:00 Tylenol - PO 08/03/19 20:01 ONCE ONE Cholecalciferol 2,000 unit 08/02/19 10:00 08/03/19 11:00 Vitamin D3 - PO 2,000 unit DAILY LISET Administration Clopidogrel Bisulfate 75 mg 08/02/19 10:00 08/03/19 11:00 Plavix - PO 75 mg DAILY LISET Administration Diltiazem HCl 10 mg 08/01/19 17:24 Cardizem Injection - IVPUSH Q4H PRN TACHYCARDIA Diltiazem HCl 60 mg 08/02/19 11:49 08/03/19 09:23 Cardizem - PO 60 mg Q6HPO LISET Administration Diphenhydramine HCl 25 mg 08/03/19 22:00 Benadryl - PO HS LISET Furosemide 80 mg 08/03/19 11:47 Lasix Injection - IVPUSH BID@0600,1400 LISET Lidocaine 1 patch 08/02/19 14:30 08/03/19 09:24 Lidoderm Patch - TP 1 patch DAILY LISET Administration Losartan Potassium 25 mg 08/02/19 10:00 08/03/19 10:59 Cozaar - PO 25 mg DAILY LISET Administration Metoprolol Succinate 100 mg 08/03/19 11:15 08/03/19 12:22 Toprol Xl - PO 100 mg BID LISET Administration Miscellaneous 1 each 08/02/19 22:00 08/02/19 21:39 Lidoderm Patch Removal MC 1 each DAILY@2200 LISET Administration Pantoprazole Sodium 40 mg 08/02/19 10:00 08/03/19 11:00 Protonix - PO 40 mg DAILY LISET Administration Spironolactone 25 mg 08/02/19 10:00 08/03/19 11:00 Aldactone - PO 25 mg DAILY LISET Administration Warfarin Sodium 3 mg 08/02/19 18:00 08/02/19 18:30 Coumadin - PO 3 mg DAILY@1800 LISET Administration ASSESSMENT/PLAN: Problem List - Problems (1) Atrial fibrillation with RVR Assessment/Plan: on coumadin, toprol bid and cardizem Code(s): I48.91 - UNSPECIFIED ATRIAL FIBRILLATION (2) Anticoagulated on Coumadin Assessment/Plan: inr subtherapeutic, goal is to maintain inr 2-3 on coumadin for afib, will increase coumadin from 3mg to 4mg on metoprolol succinate 100 mg BID, inc diltiazem to 60 mg Q6H monitor on tele Code(s): Z79.01 - FPC (CURRENT) USE OF ANTICOAGULANTS (3) Elevated brain natriuretic peptide (BNP) level Assessment/Plan: trended down on repeat Code(s): R79.89 - OTHER SPECIFIED ABNORMAL FINDINGS OF BLOOD CHEMISTRY (4) HTN (hypertension) Assessment/Plan: controlled on toprol Code(s): I10 - ESSENTIAL (PRIMARY) HYPERTENSION (5) S/P MVR (mitral valve replacement) Assessment/Plan: cardiology following Code(s): Z95.2 - PRESENCE OF PROSTHETIC HEART VALVE (6) Prophylactic measure Assessment/Plan: physical therapy Code(s): Z29.9 - ENCOUNTER FOR PROPHYLACTIC MEASURES, UNSPECIFIED (7) DVT prophylaxis Assessment/Plan: on coumadin Code(s): Z29.9 - ENCOUNTER FOR PROPHYLACTIC MEASURES, UNSPECIFIED Visit type - Emergency Visit Emergency Visit: Yes ED Registration Date: 08/01/19 Care time: The patient presented to the Emergency Department on the above date and was hospitalized for further evaluation of their emergent condition. - New Patient This patient is new to me today: No - Critical Care Critical Care patient: No - Discharge Referral Referred to [facility] Med [facility] No
[2019-08-03] MEDS: METHYL SALICYLATE/MENTHOL OINT 30 GM TUBE TP SCH ×2 (16:34→21:15)
[2019-08-03] MEDS: WARFARIN NA 2 MG TABLET (UD) PO SCH (17:17)
[2019-08-03 18:01] LABS: INR 1.95 (0.83-1.09); PROTHROMBIN TIME (PATIENT) 23.2 SEC (9.7-13.0)
[2019-08-03] MEDS ORDERED: ACETAMINOPHEN 500 MG TABLET (FP) PO ONE (20:00)
[2019-08-03] MEDS: diphenhydrAMINE HCL 25 MG CAPSULE (FP) PO SCH (21:15)
[2019-08-03] MEDS: LIDOCAINE PATCH REMOVAL MC SCH (21:17)
[2019-08-04] MEDS: dilTIAZem HCL 60 MG TABLET (FP) PO SCH ×4 (00:29→17:27)
[2019-08-04] MEDS: FUROSEMIDE 40 MG/4 ML INJECTABLE VIAL IVPUSH SCH ×2 (06:16→13:36)
[2019-08-04 07:39] LABS: BASO % 1.3 % (0-2.0); EOS % 3.6 % (0-4.5); HEMATOCRIT 30.7 % (32.4-45.2); HEMOGLOBIN 9.7 GM/dL (10.7-15.3); MCH 24.1 pg (25.7-33.7); MCHC 31.8 g/dl (32.0-36.0); MEAN CELL VOLUME 75.8 fl (80-96); MEAN PLT VOLUME 7.9 fl (7.5-11.1); MONO % 8.7 % (3.8-10.2); NEUT % 59.4 % (42.8-82.8); PLATELET COUNT 215 K/MM3 (134-434); RBC 4.05 M/mm3 (3.60-5.2); RDW 20.7 % (11.6-15.6); WHITE BLOOD COUNT 6.2 K/mm3 (4.0-10.0)
[2019-08-04 07:45] LABS: INR 2.02 (0.83-1.09)
[2019-08-04 08:10] LABS: ALBUMIN 3.4 g/dl (3.4-5.0); ALK PHOS 120 U/L (45-117); ANION GAP 6 MMOL/L (8-16); BILIRUBIN,TOTAL 0.3 mg/dL (0.2-1); BLOOD UREA NITROGEN 25.9 mg/dL (7-18); CALCIUM 8.6 mg/dL (8.5-10.1); CHLORIDE 101 mmol/L (98-107); CO2 30 mmol/L (21-32); GLUCOSE,RANDOM 100 mg/dL (74-106); MAGNESIUM 1.6 mg/dL (1.8-2.4); POTASSIUM 4.1 mmol/L (3.5-5.1); SGOT/AST 14 U/L (15-37); SGPT/ALT 18 U/L (13-61); SODIUM 136 mmol/L (136-145); TOT PROT 7.8 g/dl (6.4-8.2)
[2019-08-04] MEDS ORDERED: MAGNESIUM OXIDE 400 MG TABLET (FP) PO ONE (08:12)
--- NOTE | 2019-08-04 09:46 | PN ---
Physical Exam: SUBJECTIVE: Patient seen and examined at the bedside. called by primary RN to report that patient is c/o of chest pain. On exam, patient reports chest pain that feels like something is sitting on her chest, mid-sternal non radiating, pain 8/10. Pain began early this morning upon awakening, denies any nausea/vomiting but having dizziness when I asked her to sit up to auscultate chest. chest pain reproducible on palpation of chest. no palpations. OBJECTIVE: send for chest xray, as she is having increased crackles on both lobes compared to yesterday trend troponins tele: 2.8 second pause noted at 08:59a.m. ekg now Vital Signs Period Temp Pulse Resp BP Sys/Grullon Pulse Ox Last 24 Hr 97.6 F-98.6 F 75-112 20-20 97-128/53-72 100 GENERAL: The patient is awake, alert, and fully oriented, in no acute distress. HEAD: Normal with no signs of trauma. EYES: PERRL, extraocular movements intact, sclera anicteric, conjunctiva clear. No ptosis. ENT: Ears normal, nares patent, oropharynx clear without exudates NECK: Trachea midline, full range of motion, supple. LUNGS: bilateral lungs with scattered crackles HEART: irregular, 60s, 2.8 sec pause noted ABDOMEN: Soft, nontender, nondistended, normoactive bowel sounds EXTREMITIES: 2+ pulses, warm, well-perfused, no edema. NEUROLOGICAL: Normal speech, gait not observed. PSYCH: Normal mood, normal affect. SKIN: surgical incision on center of chest, scaly skin on surgical site Laboratory Results - last 24 hr 08/03/19 08/04/19 08/04/19 16:45 06:13 06:13 WBC 6.2 RBC 4.05 Hgb 9.7 L Hct 30.7 L MCV 75.8 L MCH 24.1 L MCHC 31.8 L RDW 20.7 H Plt Count 215 MPV 7.9 Absolute Neuts (auto) 3.7 Neutrophils % 59.4 Lymphocytes % 27.0 D Monocytes % 8.7 Eosinophils % 3.6 Basophils % 1.3 Nucleated RBC % 0 PT with INR 23.20 H INR 1.95 H Sodium 136 Potassium 4.1 Chloride 101 Carbon Dioxide 30 Anion Gap 6 L BUN 25.9 H Creatinine 1.0 Est GFR (CKD-EPI)AfAm 64.73 Est GFR (CKD-EPI)NonAf 55.85 Random Glucose 100 Calcium 8.6 Magnesium 1.6 L Total Bilirubin 0.3 AST 14 L ALT 18 Alkaline Phosphatase 120 H Total Protein 7.8 Albumin 3.4 08/04/19 06:13 WBC RBC Hgb Hct MCV MCH MCHC RDW Plt Count MPV Absolute Neuts (auto) Neutrophils % Lymphocytes % Monocytes % Eosinophils % Basophils % Nucleated RBC % PT with INR 24.00 H INR 2.02 H Sodium Potassium Chloride Carbon Dioxide Anion Gap BUN Creatinine Est GFR (CKD-EPI)AfAm Est GFR (CKD-EPI)NonAf Random Glucose Calcium Magnesium Total Bilirubin AST ALT Alkaline Phosphatase Total Protein Albumin Active Medications Generic Name Dose Route Start Last Admin Trade Name Freq PRN Reason Stop Dose Admin Acetaminophen 650 mg 08/02/19 09:24 08/02/19 18:36 Tylenol - PO 650 mg Q6H PRN Administration PAIN LEVEL 1-5 Cholecalciferol 2,000 unit 08/02/19 10:00 08/03/19 11:00 Vitamin D3 - PO 2,000 unit DAILY LISET Administration Clopidogrel Bisulfate 75 mg 08/02/19 10:00 08/03/19 11:00 Plavix - PO 75 mg DAILY LISET Administration Diltiazem HCl 10 mg 08/01/19 17:24 Cardizem Injection - IVPUSH Q4H PRN TACHYCARDIA Diltiazem HCl 60 mg 08/02/19 11:49 08/04/19 06:16 Cardizem - PO 60 mg Q6HPO LISET Administration Diphenhydramine HCl 25 mg 08/03/19 22:00 08/03/19 21:15 Benadryl - PO 25 mg HS LISET Administration Furosemide 80 mg 08/03/19 11:47 08/04/19 06:16 Lasix Injection - IVPUSH 80 mg BID@0600,1400 LISET Administration Lidocaine 1 patch 08/02/19 14:30 08/03/19 09:24 Lidoderm Patch - TP 1 patch DAILY LISET Administration Losartan Potassium 25 mg 08/02/19 10:00 08/03/19 10:59 Cozaar - PO 25 mg DAILY LISET Administration Methyl Salicylate 1 applic 08/03/19 15:58 08/03/19 21:15 Prateek-Ko - TP 1 applic BID LISET Administration Metoprolol Succinate 100 mg 08/03/19 11:15 08/03/19 21:13 Toprol Xl - PO 100 mg BID LISET Administration Miscellaneous 1 each 08/02/19 22:00 08/03/19 21:17 Lidoderm Patch Removal MC 1 each DAILY@2200 LISET Administration Pantoprazole Sodium 40 mg 08/02/19 10:00 08/03/19 11:00 Protonix - PO 40 mg DAILY LISET Administration Spironolactone 25 mg 08/02/19 10:00 08/03/19 11:00 Aldactone - PO 25 mg DAILY LISET Administration Tramadol HCl 25 mg 08/03/19 13:28 Ultram - PO Q6H PRN PAIN LEVEL 7 - 10 Warfarin Sodium 4 mg 08/03/19 18:00 08/03/19 17:17 Coumadin - PO 4 mg DAILY@1800 LISET Administration ASSESSMENT/PLAN: Problem List - Problems (1) Chest pain Assessment/Plan: EKG: afib, no ischemic changes, unchanged Chest xray: congestive changes and bilateral pleural effusions, on lasix 80 bid troponins negative x 1, trend 2 more chest pain/discomfort on palpation of chest cardiology following, notes reviewed Code(s): R07.9 - CHEST PAIN, UNSPECIFIED (2) Atrial fibrillation with RVR Assessment/Plan: on coumadin, toprol bid and cardizem rate controlled on monitor Code(s): I48.91 - UNSPECIFIED ATRIAL FIBRILLATION (3) Anticoagulated on Coumadin Assessment/Plan: inr therapeutic, goal is to maintain inr 2-3 on coumadin 4mg Code(s): Z79.01 - INTERMEDIATE (CURRENT) USE OF ANTICOAGULANTS (4) Elevated brain natriuretic peptide (BNP) level Assessment/Plan: trended down on repeat Code(s): R79.89 - OTHER SPECIFIED ABNORMAL FINDINGS OF BLOOD CHEMISTRY (5) HTN (hypertension) Assessment/Plan: controlled on toprol Code(s): I10 - ESSENTIAL (PRIMARY) HYPERTENSION (6) S/P MVR (mitral valve replacement) Assessment/Plan: cardiology following Code(s): Z95.2 - PRESENCE OF PROSTHETIC HEART VALVE (7) Prophylactic measure Assessment/Plan: physical therapy Code(s): Z29.9 - ENCOUNTER FOR PROPHYLACTIC MEASURES, UNSPECIFIED (8) DVT prophylaxis Assessment/Plan: on coumadin Code(s): Z29.9 - ENCOUNTER FOR PROPHYLACTIC MEASURES, UNSPECIFIED Visit type - Emergency Visit Emergency Visit: Yes ED Registration Date: 08/01/19 Care time: The patient presented to the Emergency Department on the above date and was hospitalized for further evaluation of their emergent condition. - New Patient This patient is new to me today: No - Critical Care Critical Care patient: No - Discharge Referral Referred to [facility] Med P.C.: No
[2019-08-04] MEDS: PANTOPRAZOLE 20 MG TABLET (FP) PO SCH (10:48)
[2019-08-04] MEDS: CHOLECALCIFEROL (VIT D3) 1,000 UNIT (25 MCG) TABLET PO SCH (10:48)
[2019-08-04] MEDS: LOSARTAN POTASSIUM 25 MG TABLET PO SCH (10:49)
[2019-08-04] MEDS: CLOPIDOGREL BISULFATE 75 MG TABLET (FP) PO SCH (10:49)
[2019-08-04] MEDS: METHYL SALICYLATE/MENTHOL OINT 30 GM TUBE TP SCH ×2 (10:49→21:44)
[2019-08-04] MEDS: LIDOCAINE 5% TOPICAL PATCH TP SCH (10:50)
[2019-08-04] MEDS: SPIRONOLACTONE 25 MG TABLET (FP) PO SCH (10:50)
--- NOTE | 2019-08-04 10:58 | PN ---
Progress Note (short form) - Note Progress Note: s: no sob dizzy cp; palps earlier Current Medications Generic Name Dose Route Start Last Admin Trade Name Freq PRN Reason Stop Dose Admin Acetaminophen 650 mg 08/02/19 09:24 08/02/19 18:36 Tylenol - PO 650 mg Q6H PRN Administration PAIN LEVEL 1-5 Cholecalciferol 2,000 unit 08/02/19 10:00 08/04/19 10:48 Vitamin D3 - PO 2,000 unit DAILY LISET Administration Clopidogrel Bisulfate 75 mg 08/02/19 10:00 08/04/19 10:49 Plavix - PO 75 mg DAILY LISET Administration Diltiazem HCl 10 mg 08/01/19 17:24 Cardizem Injection - IVPUSH Q4H PRN TACHYCARDIA Diltiazem HCl 60 mg 08/02/19 11:49 08/04/19 06:16 Cardizem - PO 60 mg Q6HPO LISET Administration Diphenhydramine HCl 25 mg 08/03/19 22:00 08/03/19 21:15 Benadryl - PO 25 mg HS LISET Administration Furosemide 80 mg 08/03/19 11:47 08/04/19 06:16 Lasix Injection - IVPUSH 80 mg BID@0600,1400 LISET Administration Lidocaine 1 patch 08/02/19 14:30 08/04/19 10:50 Lidoderm Patch - TP Not Given DAILY LISET Methyl Salicylate 1 applic 08/03/19 15:58 08/04/19 10:49 Prateek-Ko - TP 1 applic BID LISET Administration Metoprolol Succinate 100 mg 08/03/19 11:15 08/04/19 10:49 Toprol Xl - PO 100 mg BID LISET Administration Miscellaneous 1 each 08/02/19 22:00 08/03/19 21:17 Lidoderm Patch Removal MC 1 each DAILY@2200 LISET Administration Pantoprazole Sodium 40 mg 08/02/19 10:00 08/04/19 10:48 Protonix - PO 40 mg DAILY LISET Administration Spironolactone 25 mg 08/02/19 10:00 08/04/19 10:50 Aldactone - PO 25 mg DAILY LISET Administration Tramadol HCl 25 mg 08/03/19 13:28 Ultram - PO Q6H PRN PAIN LEVEL 7 - 10 Warfarin Sodium 4 mg 08/03/19 18:00 08/03/19 17:17 Coumadin - PO 4 mg DAILY@1800 [facility] Administration Vital Signs Period Temp Pulse Resp BP Sys/Grullon Pulse Ox Last 24 Hr 97.6 F-98.6 F 75-112 97-128/53-72 100 Constitutional: Yes: No Distress, Calm Eyes: Yes: Conjunctiva Clear Respiratory: Yes: Regular, Rales, Rhonchi Gastrointestinal: Yes: Normal Bowel Sounds, Soft Cardiovascular: Yes: Pulse Irregular Heart Sounds: Yes: S1, S2 Extremities: No: Cold Edema: No Integumentary: No: Jaundice Neurological: Yes: Alert, Oriented Psychiatric: No: Agitated CBC, BMP 08/04/19 06:13 08/04/19 06:13 Assessment/Plan EKG 06/2019 afib, IRBBB, no ischemic changes, rate 114 bpm echo 06/2019 post op LV not well seen, prob borderline nl LV function (EF 50%), nl RV size, function, s/p bioMVR mean gradient 10 mmHg at HR 115, minimal MR, s/ p TV repair, no TR TANYA 01/2019 nl LV size/function, mild to mod dec RV function, mild RV dilation, mild AR, MV leaflets thickened and severely calcified/immobile, mean gradient 12 mmHg, PG 29 mmHg, MVA by planimetry 1.08 cm2, mod to severe central jet of MR , palmer score at least 12, severe post MAC, mild IL, no LA thrombus, lipomatous interatrial septum, sm pericardial effusion EKG: afib, no ischemic changes CXR: congestive changes and pastor pleural effusions tele: afib, mostly <100, occ episodes of rvr, no sig herberth/pauses atrial fibrillation - cont home metoprolol succinate 100 mg BID, increaed diltiazem to 60 mg Q6H here. still with some rvr but bp on low side. will dc arb and increase dilt if bp allows. cont tele. - cont warfarin, goal INR 2-3 - case d/w Dr. Angie TAYLOR at [facility] [place] -consider transfer for inpatient cardioversion to [facility] [place] if not improving (high risk for TANYA/DCCV given multiple comorbidities and reportedly asystolic during prior DCCV) acute diastolic CHF - likely in setting of afib with RVR - most recent echo post op at [facility] [place] EF 50% with LV not well seen, stable bioMVR - nl LV function on echo here - Cr stable, weight stable - cont lasix 80 mg IV BID - replete lytes for K>4, Mg >2 - monitor Cr, lytes, daily weights HTN -hold arb as bp low with addition of ccb. PAD - cont plavix, coumadin s/p MVR, TV repair 06/2019 - stable on echo
--- NOTE | 2019-08-04 11:48 | EKG ---
Test Reason : Blood Pressure : / mmHG Vent. Rate : 057 BPM Atrial Rate : 087 BPM P-R Int : 000 ms QRS Dur : 100 ms QT Int : 434 ms P-R-T Axes : 000 000 179 degrees QTc Int : 422 ms ATRIAL FIBRILLATION WITH SLOW VENTRICULAR RESPONSE ABNORMAL ECG WHEN COMPARED WITH ECG OF 01-AUG-2019 12:08, VENT. RATE HAS DECREASED BY 31 BPM INVERTED T WAVES HAVE REPLACED NONSPECIFIC T WAVE ABNORMALITY IN LATERAL LEADS QT HAS SHORTENED Confirmed by PORFIRIO LEE MD ([id number]) on 08/04/2019 11:48:01 AM Referred By: VINCE CARMONA Confirmed By:PORFIRIO LEE MD
[2019-08-04] MEDS: WARFARIN NA 2 MG TABLET (UD) PO SCH (17:27)
[2019-08-04] MEDS: LIDOCAINE PATCH REMOVAL MC SCH (21:38)
[2019-08-04] MEDS: diphenhydrAMINE HCL 25 MG CAPSULE (FP) PO SCH (21:38)
[2019-08-05] MEDS: dilTIAZem HCL 60 MG TABLET (FP) PO SCH ×4 (00:35→17:31)
[2019-08-05] MEDS: FUROSEMIDE 40 MG/4 ML INJECTABLE VIAL IVPUSH SCH ×2 (06:14→15:55)
[2019-08-05 07:21] LABS: EOS % 2.9 % (0-4.5); HEMOGLOBIN 9.7 GM/dL (10.7-15.3); MCH 24.3 pg (25.7-33.7); MCHC 32.3 g/dl (32.0-36.0); MEAN CELL VOLUME 75.2 fl (80-96); MEAN PLT VOLUME 8.2 fl (7.5-11.1); MONO % 11.2 % (3.8-10.2); NEUT % 59.9 % (42.8-82.8); PLATELET COUNT 194 K/MM3 (134-434); RDW 20.7 % (11.6-15.6); WHITE BLOOD COUNT 5.4 K/mm3 (4.0-10.0)
[2019-08-05 07:38] LABS: INR 2.05 (0.83-1.09); PROTHROMBIN TIME (PATIENT) 24.4 SEC (9.7-13.0)
[2019-08-05 07:55] LABS: ALBUMIN 3.3 g/dl (3.4-5.0); ALK PHOS 113 U/L (45-117); ANION GAP 7 MMOL/L (8-16); BILIRUBIN,TOTAL 0.3 mg/dL (0.2-1); BLOOD UREA NITROGEN 26.1 mg/dL (7-18); CALCIUM 8.6 mg/dL (8.5-10.1); CHLORIDE 99 mmol/L (98-107); CO2 29 mmol/L (21-32); CREATININE 0.9 mg/dL (0.55-1.3); GLUCOSE,RANDOM 93 mg/dL (74-106); MAGNESIUM 1.7 mg/dL (1.8-2.4); POTASSIUM 3.6 mmol/L (3.5-5.1); SGOT/AST 13 U/L (15-37); SGPT/ALT 14 U/L (13-61); SODIUM 135 mmol/L (136-145); TOT PROT 7.4 g/dl (6.4-8.2)
[2019-08-05] MEDS ORDERED: MAGNESIUM OXIDE 400 MG TABLET (FP) PO ONE (08:01)
--- NOTE | 2019-08-05 09:10 | PN ---
Physical Exam: SUBJECTIVE: Patient seen and examined at the bedside. not wearing oxygen currently, but gets short of breath with physical exertion and even when moving in the bed. Will order a pre and post. Patient denies chest pain. Chest feels sore when palpated, slept well overnight. patient denies any nausea/vomiting but having dizziness with positional changes OBJECTIVE: troponons negative x 3 ekg unchanged tele: afib 90s-130s -------- Patient is a 73 year old female with a significant past medical history of hypertension, mitral stenosis s/p bioMVR and TV repair 06/28/2019, pulm HTN, PAD , afib p/w dyspnea on exertion. She recently had MVR, complicated by post op afib now on coumadin. Was s/p cardioversion at [facility] [place] now back in afib. Became more short of breath 2 days prior to admission with racing heart with minimal activity. Brought in by EMS and was found to be in afib with rvr which improved with cardizem. Discharge planning pending as patient may be transferred to [facility] for cardioversion. Vital Signs Period Temp Pulse Resp BP Sys/Grullon Pulse Ox Last 24 Hr 97.5 F-98.0 F 61-119 18-20 92-122/39-74 93 GENERAL: The patient is awake, alert, and fully oriented, in no acute distress. HEAD: Normal with no signs of trauma. EYES: PERRL, extraocular movements intact, sclera anicteric, conjunctiva clear. No ptosis. ENT: Ears normal, nares patent, oropharynx clear without exudates NECK: Trachea midline, full range of motion, supple. LUNGS: bilateral lungs with scattered crackles, tolerating room air, but gets short of breath with physical exertion. on lasix bid HEART: irregular, 60s, 2.8 sec pause noted ABDOMEN: Soft, nontender, nondistended, normoactive bowel sounds EXTREMITIES: no edema. NEUROLOGICAL: Normal speech, gait not observed. PSYCH: Normal mood, normal affect. SKIN: surgical incision on center of chest, scaly skin on surgical site, no signs infection Laboratory Results - last 24 hr 08/04/19 08/05/19 08/05/19 06:13 05:44 05:44 WBC 5.4 RBC 4.00 Hgb 9.7 L Hct 30.0 L MCV 75.2 L MCH 24.3 L MCHC 32.3 RDW 20.7 H Plt Count 194 MPV 8.2 Absolute Neuts (auto) 3.2 Neutrophils % 59.9 Lymphocytes % 25.0 Monocytes % 11.2 H Eosinophils % 2.9 Basophils % 1.0 Nucleated RBC % 0 PT with INR INR Sodium 136 135 L Potassium 4.1 3.6 Chloride 101 99 Carbon Dioxide 30 29 Anion Gap 6 L 7 L BUN 25.9 H 26.1 H Creatinine 1.0 0.9 Est GFR (CKD-EPI)AfAm 64.73 73.52 Est GFR (CKD-EPI)NonAf 55.85 63.43 Random Glucose 100 93 Calcium 8.6 8.6 Magnesium 1.6 L 1.7 L Total Bilirubin 0.3 0.3 AST 14 L 13 L ALT 18 14 Alkaline Phosphatase 120 H 113 Troponin I < 0.02 < 0.02 Total Protein 7.8 7.4 Albumin 3.4 3.3 L 08/05/19 05:44 WBC RBC Hgb Hct MCV MCH MCHC RDW Plt Count MPV Absolute Neuts (auto) Neutrophils % Lymphocytes % Monocytes % Eosinophils % Basophils % Nucleated RBC % PT with INR 24.40 H INR 2.05 H Sodium Potassium Chloride Carbon Dioxide Anion Gap BUN Creatinine Est GFR (CKD-EPI)AfAm Est GFR (CKD-EPI)NonAf Random Glucose Calcium Magnesium Total Bilirubin AST ALT Alkaline Phosphatase Troponin I Total Protein Albumin Active Medications Generic Name Dose Route Start Last Admin Trade Name Freq PRN Reason Stop Dose Admin Acetaminophen 650 mg 08/02/19 09:24 08/02/19 18:36 Tylenol - PO 650 mg Q6H PRN Administration PAIN LEVEL 1-5 Cholecalciferol 2,000 unit 08/02/19 10:00 08/04/19 10:48 Vitamin D3 - PO 2,000 unit DAILY LISET Administration Clopidogrel Bisulfate 75 mg 08/02/19 10:00 08/04/19 10:49 Plavix - PO 75 mg DAILY LISET Administration Diltiazem HCl 10 mg 08/01/19 17:24 Cardizem Injection - IVPUSH Q4H PRN TACHYCARDIA Diltiazem HCl 60 mg 08/02/19 11:49 08/05/19 06:14 Cardizem - PO 60 mg Q6HPO LISET Administration Diphenhydramine HCl 25 mg 08/03/19 22:00 08/04/19 21:38 Benadryl - PO 25 mg HS LISET Administration Furosemide 80 mg 08/03/19 11:47 08/05/19 06:14 Lasix Injection - IVPUSH 80 mg BID@0600,1400 LISET Administration Lidocaine 1 patch 08/02/19 14:30 08/04/19 10:50 Lidoderm Patch - TP Not Given DAILY LISET Magnesium Oxide 800 mg 08/05/19 08:01 Mag-Ox - PO 08/05/19 08:02 ONCE ONE Methyl Salicylate 1 applic 08/03/19 15:58 08/04/19 21:44 Prateek-Ko - TP 1 applic BID LISET Administration Metoprolol Succinate 100 mg 08/03/19 11:15 08/04/19 21:38 Toprol Xl - PO 100 mg BID LISET Administration Miscellaneous 1 each 08/02/19 22:00 08/04/19 21:38 Lidoderm Patch Removal MC Not Given DAILY@2200 LISET Pantoprazole Sodium 40 mg 08/02/19 10:00 08/04/19 10:48 Protonix - PO 40 mg DAILY LISET Administration Spironolactone 25 mg 08/02/19 10:00 08/04/19 10:50 Aldactone - PO 25 mg DAILY LISET Administration Tramadol HCl 25 mg 08/03/19 13:28 Ultram - PO Q6H PRN PAIN LEVEL 7 - 10 Warfarin Sodium 4 mg 08/03/19 18:00 08/04/19 17:27 Coumadin - PO 4 mg DAILY@1800 LISET Administration ASSESSMENT/PLAN: Problem List - Problems (1) Chest pain Assessment/Plan: resolved EKG: afib, no ischemic changes, unchanged Chest xray: congestive changes and bilateral pleural effusions, on lasix 80 bid troponins negative x 3 chest pain/discomfort on palpation of chest by surgical site cardiology following, notes reviewed Code(s): R07.9 - CHEST PAIN, UNSPECIFIED (2) Atrial fibrillation with RVR Assessment/Plan: on coumadin, toprol bid and cardizem rate controlled on monitor Code(s): I48.91 - UNSPECIFIED ATRIAL FIBRILLATION (3) Anticoagulated on Coumadin Assessment/Plan: inr therapeutic, goal is to maintain inr 2-3 on coumadin 4mg Code(s): Z79.01 - PRISON (CURRENT) USE OF ANTICOAGULANTS (4) Elevated brain natriuretic peptide (BNP) level Assessment/Plan: trended down on repeat Code(s): R79.89 - OTHER SPECIFIED ABNORMAL FINDINGS OF BLOOD CHEMISTRY (5) HTN (hypertension) Assessment/Plan: controlled on toprol Code(s): I10 - ESSENTIAL (PRIMARY) HYPERTENSION (6) S/P MVR (mitral valve replacement) Assessment/Plan: cardiology following Code(s): Z95.2 - PRESENCE OF PROSTHETIC HEART VALVE (7) Prophylactic measure Assessment/Plan: physical therapy Code(s): Z29.9 - ENCOUNTER FOR PROPHYLACTIC MEASURES, UNSPECIFIED (8) DVT prophylaxis Assessment/Plan: on coumadin Code(s): Z29.9 - ENCOUNTER FOR PROPHYLACTIC MEASURES, UNSPECIFIED Visit type - Emergency Visit Emergency Visit: Yes ED Registration Date: 08/01/19 Care time: The patient presented to the Emergency Department on the above date and was hospitalized for further evaluation of their emergent condition. - New Patient This patient is new to me today: No - Critical Care Critical Care patient: No - Discharge Referral Referred to [facility] Med [facility] No
--- NOTE | 2019-08-05 10:00 | PN ---
Progress Note, Physician Chief Complaint: Some SOB still Weight is down TELE: AF with occasional rapid bursts into 130s. History of Present Illness: BP soft : 100 systolic range - Current Medication List Current Medications: Active Medications Acetaminophen (Tylenol -) 650 mg PO Q6H PRN PRN Reason: PAIN LEVEL 1-5 Last Admin: 08/02/19 18:36 Dose: 650 mg Cholecalciferol (Vitamin D3 -) 2,000 unit PO DAILY [facility] Last Admin: 08/04/19 10:48 Dose: 2,000 unit Clopidogrel Bisulfate (Plavix -) 75 mg PO DAILY [facility] Last Admin: 08/04/19 10:49 Dose: 75 mg Diltiazem HCl (Cardizem Injection -) 10 mg IVPUSH Q4H PRN PRN Reason: TACHYCARDIA Diltiazem HCl (Cardizem -) 60 mg PO Q6HPO [facility] Last Admin: 08/05/19 06:14 Dose: 60 mg Diphenhydramine HCl (Benadryl -) 25 mg PO HS [facility] Last Admin: 08/04/19 21:38 Dose: 25 mg Furosemide (Lasix Injection -) 80 mg IVPUSH BID@0600,1400 [facility] Last Admin: 08/05/19 06:14 Dose: 80 mg Lidocaine (Lidoderm Patch -) 1 patch TP DAILY [facility] Last Admin: 08/04/19 10:50 Dose: Not Given Methyl Salicylate (Prateek-Ko -) 1 applic TP BID [facility] Last Admin: 08/04/19 21:44 Dose: 1 applic Metoprolol Succinate (Toprol Xl -) 100 mg PO BID [facility] Last Admin: 08/04/19 21:38 Dose: 100 mg Miscellaneous (Lidoderm Patch Removal) 1 each MC DAILY@2200 [facility] Last Admin: 08/04/19 21:38 Dose: Not Given Pantoprazole Sodium (Protonix -) 40 mg PO DAILY [facility] Last Admin: 08/04/19 10:48 Dose: 40 mg Spironolactone (Aldactone -) 25 mg PO DAILY [facility] Last Admin: 08/04/19 10:50 Dose: 25 mg Tramadol HCl (Ultram -) 25 mg PO Q6H PRN PRN Reason: PAIN LEVEL 7 - 10 Warfarin Sodium (Coumadin -) 4 mg PO DAILY@1800 [facility] Last Admin: 08/04/19 17:27 Dose: 4 mg - Objective Vital Signs: Vital Signs Temperature 97.7 F 08/05/19 08:48 Pulse Rate 71 08/05/19 08:48 Respiratory Rate 18 08/05/19 08:48 Blood Pressure 101/65 08/05/19 08:48 O2 Sat by Pulse Oximetry (%) 93 L 08/04/19 21:00 Constitutional: Yes: No Distress Cardiovascular: Yes: Pulse Irregular Respiratory: Yes: Other (bibasilar rales 1/3 up) Gastrointestinal: Yes: Soft Edema: Yes Edema: LLE: 1+, RLE: 1+ Neurological: Yes: Alert, Oriented Labs: CBC, BMP 08/05/19 05:44 08/05/19 05:44 INR, PTT INR 2.05 (0.83-1.09) H 08/05/19 05:44 - ....Imaging Chest X-ray: Image Reviewed EKG: Image Reviewed Assessment/Plan Assessment/Plan EKG 06/2019 afib, IRBBB, no ischemic changes, rate 114 bpm echo 06/2019 post op LV not well seen, prob borderline nl LV function (EF 50%), nl RV size, function, s/p bioMVR mean gradient 10 mmHg at HR 115, minimal MR, s/ p TV repair, no TR TANYA 01/2019 nl LV size/function, mild to mod dec RV function, mild RV dilation, mild AR, MV leaflets thickened and severely calcified/immobile, mean gradient 12 mmHg, PG 29 mmHg, MVA by planimetry 1.08 cm2, mod to severe central jet of MR , palmer score at least 12, severe post MAC, mild [place], no LA thrombus, lipomatous interatrial septum, sm pericardial effusion EKG: afib, no ischemic changes CXR: congestive changes and pastor pleural effusions tele: afib, mostly <100, occ episodes of rvr, no sig herberth/pauses atrial fibrillation: still with occasional periods RVR, which may be leading to refractory CHF - cont home metoprolol succinate 100 mg BID, increaed diltiazem to 60 mg Q6H here. still with some rvr but bp on low side. -Soft BP limits further titration of Cardizem -Can add PO digoxin for adjunct rate control - cont warfarin, goal INR 2-3 - [place] d[place] [facility] [place] [facility] [place] not [place] (high risk for TANYA/DCCV given multiple comorbidities and reportedly asystolic during prior DCCV) acute diastolic CHF: - likely in setting of afib with RVR - most recent [place] [facility] [place] 50% with LV not well seen, stable bioMVR - nl LV function on echo here - Cr stable, weight stable - cont lasix 80 mg IV BID - replete lytes for K>4, Mg >2 - monitor Cr, lytes, daily weights daily HTN -hold arb as bp low with addition of ccb. PAD - cont plavix, coumadin s/p MVR, TV repair 06/2019 - stable on echo
[2019-08-05] MEDS: PANTOPRAZOLE 20 MG TABLET (FP) PO SCH (10:36)
[2019-08-05] MEDS: CLOPIDOGREL BISULFATE 75 MG TABLET (FP) PO SCH (10:37)
[2019-08-05] MEDS: CHOLECALCIFEROL (VIT D3) 1,000 UNIT (25 MCG) TABLET PO SCH (10:37)
[2019-08-05] MEDS: SPIRONOLACTONE 25 MG TABLET (FP) PO SCH (10:37)
[2019-08-05] MEDS: METHYL SALICYLATE/MENTHOL OINT 30 GM TUBE TP SCH ×2 (10:38→21:16)
[2019-08-05] MEDS: LIDOCAINE 5% TOPICAL PATCH TP SCH (10:38)
[2019-08-05] MEDS ORDERED: DIGOXIN 0.25 MG TABLET (FP) PO ONE (10:45)
[2019-08-05 12:22] LABS: ANISOCYTOSIS 2+; MACROCYTOSIS 0; PLATELET ESTIMATE NORMAL
[2019-08-05] MEDS: WARFARIN NA 2 MG TABLET (UD) PO SCH (17:31)
[2019-08-05] MEDS: diphenhydrAMINE HCL 25 MG CAPSULE (FP) PO SCH (21:16)
[2019-08-05] MEDS: LIDOCAINE PATCH REMOVAL MC SCH (21:20)
[2019-08-06] MEDS: dilTIAZem HCL 60 MG TABLET (FP) PO SCH ×4 (01:23→18:03)
[2019-08-06] MEDS: FUROSEMIDE 40 MG/4 ML INJECTABLE VIAL IVPUSH SCH ×2 (05:23→14:09)
[2019-08-06 07:06] LABS: BASO % 0.9 % (0-2.0); EOS % 2.8 % (0-4.5); HEMATOCRIT 31.8 % (32.4-45.2); HEMOGLOBIN 10.4 GM/dL (10.7-15.3); LYMPH % 22.9 % (8-40); MCH 24.2 pg (25.7-33.7); MCHC 32.6 g/dl (32.0-36.0); MEAN CELL VOLUME 74.3 fl (80-96); MEAN PLT VOLUME 7.8 fl (7.5-11.1); MONO % 10.5 % (3.8-10.2); NEUT % 62.9 % (42.8-82.8); PLATELET COUNT 213 K/MM3 (134-434); RBC 4.28 M/mm3 (3.60-5.2); RDW 20.5 % (11.6-15.6); WHITE BLOOD COUNT 7.3 K/mm3 (4.0-10.0)
[2019-08-06 07:14] LABS: ALBUMIN 3.4 g/dl (3.4-5.0); BILIRUBIN,TOTAL 0.3 mg/dL (0.2-1); BLOOD UREA NITROGEN 28.2 mg/dL (7-18); CALCIUM 8.9 mg/dL (8.5-10.1); MAGNESIUM 1.7 mg/dL (1.8-2.4)
[2019-08-06 09:17] LABS: INR 2.23 (0.83-1.09); PROTHROMBIN TIME (PATIENT) 26.5 SEC (9.7-13.0)
[2019-08-06] MEDS: SPIRONOLACTONE 25 MG TABLET (FP) PO SCH (09:34)
[2019-08-06] MEDS: CHOLECALCIFEROL (VIT D3) 1,000 UNIT (25 MCG) TABLET PO SCH (09:35)
[2019-08-06] MEDS: PANTOPRAZOLE 20 MG TABLET (FP) PO SCH (09:35)
[2019-08-06] MEDS: DIGOXIN 0.125 MG TABLET (FP) PO SCH (09:35)
[2019-08-06] MEDS: CLOPIDOGREL BISULFATE 75 MG TABLET (FP) PO SCH (09:35)
[2019-08-06] MEDS: LIDOCAINE 5% TOPICAL PATCH TP SCH (11:35)
[2019-08-06] MEDS: METHYL SALICYLATE/MENTHOL OINT 30 GM TUBE TP SCH ×2 (11:35→21:41)
--- NOTE | 2019-08-06 12:57 | PN ---
Progress Note (short form) - Note Progress Note: s: still sob but improving. occasional palps. walked with PT today with HR 90s- 100s. no chest pain, dizziness, edema Current Medications Acetaminophen (Tylenol -) 650 mg PO Q6H PRN PRN Reason: PAIN LEVEL 1-5 Last Admin: 08/02/19 18:36 Dose: 650 mg Cholecalciferol (Vitamin D3 -) 2,000 unit PO DAILY [facility] Last Admin: 08/06/19 09:35 Dose: 2,000 unit Clopidogrel Bisulfate (Plavix -) 75 mg PO DAILY [facility] Last Admin: 08/06/19 09:35 Dose: 75 mg Digoxin (Lanoxin -) 0.125 mg PO DAILY [facility] Last Admin: 08/06/19 09:35 Dose: 0.125 mg Diltiazem HCl (Cardizem Injection -) 10 mg IVPUSH Q4H PRN PRN Reason: TACHYCARDIA Diltiazem HCl (Cardizem -) 60 mg PO Q6HPO [facility] Last Admin: 08/06/19 12:32 Dose: 60 mg Diphenhydramine HCl (Benadryl -) 25 mg PO HS [facility] Last Admin: 08/05/19 21:16 Dose: 25 mg Furosemide (Lasix Injection -) 80 mg IVPUSH BID@0600,1400 [facility] Last Admin: 08/06/19 05:23 Dose: 80 mg Lidocaine (Lidoderm Patch -) 1 patch TP DAILY [facility] Last Admin: 08/06/19 11:35 Dose: Not Given Methyl Salicylate (Prateek-Ko -) 1 applic TP BID [facility] Last Admin: 08/06/19 11:35 Dose: Not Given Metoprolol Succinate (Toprol Xl -) 100 mg PO BID [facility] Last Admin: 08/06/19 09:34 Dose: 100 mg Miscellaneous (Lidoderm Patch Removal) 1 each MC DAILY@2200 [facility] Last Admin: 08/05/19 21:20 Dose: Not Given Pantoprazole Sodium (Protonix -) 40 mg PO DAILY [facility] Last Admin: 08/06/19 09:35 Dose: 40 mg Spironolactone (Aldactone -) 25 mg PO DAILY [facility] Last Admin: 08/06/19 09:34 Dose: 25 mg Tramadol HCl (Ultram -) 25 mg PO Q6H PRN PRN Reason: PAIN LEVEL 7 - 10 Warfarin Sodium (Coumadin -) 4 mg PO DAILY@1800 [facility] Last Admin: 08/05/19 17:31 Dose: 4 mg Vital Signs Period Temp Pulse Resp BP Sys/Grullon Pulse Ox Last 24 Hr 97.4 F-98.6 F 69-106 18-73 95-131/48-76 94-94 Constitutional: Yes: No Distress Cardiovascular: Yes: Pulse Irregular Respiratory: Yes: Other (bibasilar rales 1/3 up) Gastrointestinal: Yes: Soft Edema: Yes Edema: LLE: 1+, RLE: 1+ Neurological: Yes: Alert, Oriented no jaundice, diaphoresis not agitated Assessment/Plan EKG 06/2019 afib, IRBBB, no ischemic changes, rate 114 bpm echo 06/2019 post op LV not well seen, prob borderline nl LV function (EF 50%), nl RV size, function, s/p bioMVR mean gradient 10 mmHg at HR 115, minimal MR, s/ p TV repair, no TR TANYA 01/2019 nl LV size/function, mild to mod dec RV function, mild RV dilation, mild AR, MV leaflets thickened and severely calcified/immobile, mean gradient 12 mmHg, PG 29 mmHg, MVA by planimetry 1.08 cm2, mod to severe central jet of MR , palmer score at least 12, severe post MAC, mild TN, no LA thrombus, lipomatous interatrial septum, sm pericardial effusion EKG: afib, no ischemic changes CXR: congestive changes and pastor pleural effusions tele: afib, mostly <100, occ episodes of rvr, no sig herberth/pauses atrial fibrillation: still with occasional periods RVR, which may be leading to refractory CHF - cont home metoprolol succinate 100 mg BID, increaed diltiazem to 60 mg Q6H here. still with some rvr but bp on low side. -Soft BP limits further titration of Cardizem - cont digoxin - cont warfarin, goal INR 2-3 - rate control improving here - likely outpatient cardioversion with Dr. Angie TAYLOR at [facility] [place] discharge acute diastolic CHF: - likely in setting of afib with RVR - most recent echo post op at [facility] [place] EF 50% with LV not well seen, stable bioMVR - nl LV function on echo here - Cr stable, weight stable - cont lasix 80 mg IV BID - replete lytes for K>4, Mg >2 - monitor Cr, lytes, daily weights daily HTN -hold arb as bp low with addition of ccb. PAD - cont plavix, coumadin s/p MVR, TV repair 06/2019 - stable on echo
--- NOTE | 2019-08-06 16:41 | PN ---
Physical Exam: SUBJECTIVE: Patient seen and examined Patient seen and examined at the bedside. not wearing oxygen currently, but gets short of breath with physical exertion and even when moving in the bed. pre and post done and patient does not qualify for home oxygen Patient denies chest pain. patient denies any nausea/vomiting but having dizziness with positional changes OBJECTIVE: troponons negative x 3 ekg unchanged tele: afib 90s-130s -------- Patient is a 73 year old female with a significant past medical history of hypertension, mitral stenosis s/p bioMVR and TV repair 06/28/2019, pulm HTN, PAD , afib p/w dyspnea on exertion. She recently had MVR, complicated by post op afib now on coumadin. Was s/p cardioversion at [place] now back in afib. Became more short of breath 2 days prior to admission with racing heart with minimal activity. Brought in by EMS and was found to be in afib with rvr which improved with cardizem. Discharge planning pending as patient may be transferred to [facility] for cardioversion. Vital Signs Period Temp Pulse Resp BP Sys/[place] Pulse Ox Last 24 Hr 97.4 F-98.6 F 77-106 18-73 96-131/53-76 94-94 GENERAL: The patient is awake, alert, and fully oriented, in no acute distress. HEAD: Normal with no signs of trauma. EYES: PERRL, extraocular movements intact, sclera anicteric, conjunctiva clear. No ptosis. ENT: Ears normal, nares patent, oropharynx clear without exudates NECK: Trachea midline, full range of motion, supple. LUNGS: bilateral lungs with scattered crackles, tolerating room air, but gets short of breath with physical exertion. on lasix bid HEART: irregular, 60s, 2.8 sec pause noted ABDOMEN: Soft, nontender, nondistended, normoactive bowel sounds EXTREMITIES: no edema. NEUROLOGICAL: Normal speech, gait not observed. PSYCH: Normal mood, normal affect. SKIN: surgical incision on center of chest, scaly skin on surgical site, no signs infection 08/06/19 08/06/19 08/06/19 05:50 05:50 08:35 WBC 7.3 RBC 4.28 Hgb 10.4 L Hct 31.8 L MCV 74.3 L MCH 24.2 L MCHC 32.6 RDW 20.5 H Plt Count 213 MPV 7.8 Absolute Neuts (auto) 4.6 Neutrophils % 62.9 Lymphocytes % 22.9 Monocytes % 10.5 H Eosinophils % 2.8 Basophils % 0.9 Nucleated RBC % 0 PT with INR 26.50 H INR 2.23 H Sodium 136 Potassium 4.0 Chloride 99 Carbon Dioxide 28 Anion Gap 8 BUN 28.2 H Creatinine 1.0 Est GFR (CKD-EPI)AfAm 64.73 Est GFR (CKD-EPI)NonAf 55.85 Random Glucose 105 Calcium 8.9 Magnesium 1.7 L Total Bilirubin 0.3 AST 15 ALT 17 Alkaline Phosphatase 126 H Total Protein 8.0 Albumin 3.4 Active Medications Generic Name Dose Route Start Last Admin Trade Name Freq PRN Reason Stop Dose Admin Acetaminophen 650 mg 08/02/19 09:24 08/02/19 18:36 Tylenol - PO 650 mg Q6H PRN Administration PAIN LEVEL 1-5 Cholecalciferol 2,000 unit 08/02/19 10:00 08/06/19 09:35 Vitamin D3 - PO 2,000 unit DAILY [facility] Administration Clopidogrel Bisulfate 75 mg 08/02/19 10:00 08/06/19 09:35 Plavix - PO 75 mg DAILY [facility] Administration Digoxin 0.125 mg 08/06/19 10:00 08/06/19 09:35 Lanoxin - PO 0.125 mg DAILY [facility] Administration Diltiazem HCl 10 mg 08/01/19 17:24 Cardizem Injection - IVPUSH Q4H PRN TACHYCARDIA Diltiazem HCl 60 mg 08/02/19 11:49 08/06/19 12:32 Cardizem - PO 60 mg Q6HPO [facility] Administration Diphenhydramine HCl 25 mg 08/03/19 22:00 08/05/19 21:16 Benadryl - PO 25 mg HS [facility] Administration Furosemide 80 mg 08/03/19 11:47 08/06/19 14:09 Lasix Injection - IVPUSH 80 mg BID@0600,1400 [facility] Administration Lidocaine 1 patch 08/02/19 14:30 08/06/19 11:35 Lidoderm Patch - TP Not Given DAILY [facility] Methyl Salicylate 1 applic 08/03/19 15:58 08/06/19 11:35 Prateek-Ko - TP Not Given BID [facility] Metoprolol Succinate 100 mg 08/03/19 11:15 08/06/19 09:34 Toprol Xl - PO 100 mg BID [facility] Administration Miscellaneous 1 each 08/02/19 22:00 08/05/19 21:20 Lidoderm Patch Removal MC Not Given DAILY@2200 [facility] Pantoprazole Sodium 40 mg 08/02/19 10:00 08/06/19 09:35 Protonix - PO 40 mg DAILY [facility] Administration Spironolactone 25 mg 08/02/19 10:00 08/06/19 09:34 Aldactone - PO 25 mg DAILY [facility] Administration Warfarin Sodium 4 mg 08/03/19 18:00 08/05/19 17:31 Coumadin - PO 4 mg DAILY@1800 [facility] Administration ASSESSMENT/PLAN: Problem List - Problems (1) Chest pain Assessment/Plan: resolved EKG: afib, no ischemic changes, unchanged Chest xray: congestive changes and bilateral pleural effusions, on lasix 80 bid troponins negative x 3 chest pain/discomfort on palpation of chest by surgical site cardiology following, notes reviewed Code(s): R07.9 - CHEST PAIN, UNSPECIFIED (2) Atrial fibrillation with RVR Assessment/Plan: on coumadin, toprol, digoxin and cardizem tele monitor 90s-130s afib Code(s): I48.91 - UNSPECIFIED ATRIAL FIBRILLATION (3) Anticoagulated on Coumadin Assessment/Plan: inr therapeutic, goal is to maintain inr 2-3 on coumadin 4mg Code(s): Z79.01 - MCFP (CURRENT) USE OF ANTICOAGULANTS (4) Elevated brain natriuretic peptide (BNP) level Assessment/Plan: trended down on repeat Code(s): R79.89 - OTHER SPECIFIED ABNORMAL FINDINGS OF BLOOD CHEMISTRY (5) HTN (hypertension) Assessment/Plan: controlled on toprol Code(s): I10 - ESSENTIAL (PRIMARY) HYPERTENSION (6) S/P MVR (mitral valve replacement) Assessment/Plan: cardiology following Code(s): Z95.2 - PRESENCE OF PROSTHETIC HEART VALVE (7) Prophylactic measure Assessment/Plan: physical therapy Code(s): Z29.9 - ENCOUNTER FOR PROPHYLACTIC MEASURES, UNSPECIFIED (8) DVT prophylaxis Assessment/Plan: on coumadin Code(s): Z29.9 - ENCOUNTER FOR PROPHYLACTIC MEASURES, UNSPECIFIED Visit type - Emergency Visit Emergency Visit: Yes ED Registration Date: 08/01/19 Care time: The patient presented to the Emergency Department on the above date and was hospitalized for further evaluation of their emergent condition. - New Patient This patient is new to me today: No - Critical Care Critical Care patient: No - Discharge Referral Referred to [facility] Med P.C.: No
[2019-08-06] MEDS: WARFARIN NA 2 MG TABLET (UD) PO SCH (18:03)
[2019-08-06] MEDS: LIDOCAINE PATCH REMOVAL MC SCH (21:42)
[2019-08-06] MEDS: diphenhydrAMINE HCL 25 MG CAPSULE (FP) PO SCH (21:43)
[2019-08-06] MEDS: MAGNESIUM OXIDE 400 MG TABLET (FP) PO SCH (21:43)
[2019-08-07] MEDS: dilTIAZem HCL 60 MG TABLET (FP) PO SCH ×5 (00:50→23:41)
[2019-08-07] MEDS: FUROSEMIDE 40 MG/4 ML INJECTABLE VIAL IVPUSH SCH ×2 (05:30→14:55)
[2019-08-07 07:32] LABS: ALBUMIN 3.4 g/dl (3.4-5.0); BILIRUBIN,TOTAL 0.3 mg/dL (0.2-1); BLOOD UREA NITROGEN 28.5 mg/dL (7-18); CALCIUM 9.4 mg/dL (8.5-10.1); CREATININE 0.9 mg/dL (0.55-1.3); MAGNESIUM 1.9 mg/dL (1.8-2.4); POTASSIUM 3.9 mmol/L (3.5-5.1)
[2019-08-07 07:47] LABS: BASO % 1.1 % (0-2.0); EOS % 3.1 % (0-4.5); HEMATOCRIT 33.1 % (32.4-45.2); HEMOGLOBIN 10.5 GM/dL (10.7-15.3); LYMPH % 26.6 % (8-40); MCH 23.9 pg (25.7-33.7); MCHC 31.8 g/dl (32.0-36.0); MEAN CELL VOLUME 75.3 fl (80-96); MEAN PLT VOLUME 8.2 fl (7.5-11.1); MONO % 11.7 % (3.8-10.2); NEUT % 57.5 % (42.8-82.8); PLATELET COUNT 216 K/MM3 (134-434); RDW 20.5 % (11.6-15.6); WHITE BLOOD COUNT 6.6 K/mm3 (4.0-10.0)
[2019-08-07] MEDS: DIGOXIN 0.125 MG TABLET (FP) PO SCH (09:19)
[2019-08-07] MEDS: CHOLECALCIFEROL (VIT D3) 1,000 UNIT (25 MCG) TABLET PO SCH (09:19)
[2019-08-07] MEDS: CLOPIDOGREL BISULFATE 75 MG TABLET (FP) PO SCH (09:19)
[2019-08-07] MEDS: MAGNESIUM OXIDE 400 MG TABLET (FP) PO SCH ×2 (09:19→21:21)
[2019-08-07] MEDS: SPIRONOLACTONE 25 MG TABLET (FP) PO SCH (09:19)
[2019-08-07] MEDS: PANTOPRAZOLE 20 MG TABLET (FP) PO SCH (09:19)
[2019-08-07 09:59] LABS: INR 2.13 (0.83-1.09); PROTHROMBIN TIME (PATIENT) 25.3 SEC (9.7-13.0)
--- NOTE | 2019-08-07 10:51 | PN ---
Physical Exam: SUBJECTIVE: Patient seen and examined at the bedside. sitting up in bed, denies any shortness of breath. mild dizziness when going from sitting to standing position. OBJECTIVE: Patient is a 73 year old female with a significant past medical history of hypertension, mitral stenosis s/p bioMVR (tissue) and TV repair 06/28/2019, pulm HTN, PAD, afib p/w dyspnea on exertion. She recently had MVR, complicated by post op afib now on coumadin. Was s/p cardioversion at [facility] [place] now back in afib. Became more short of breath 2 days prior to admission with racing heart with minimal activity. Brought in by EMS and was found to be in afib with rvr which improved with cardizem. Discharge planning pending as patient may be transferred to [facility] for cardioversion. Vital Signs Period Temp Pulse Resp BP Sys/[place]on Pulse Ox Last 24 Hr 97.7 F-98.7 F 68-92 18-18 105-125/48-68 96-96 GENERAL: The patient is awake, alert, and fully oriented, in no acute distress. HEAD: Normal with no signs of trauma. EYES: PERRL, extraocular movements intact, sclera anicteric, conjunctiva clear. No ptosis. ENT: Ears normal, nares patent, oropharynx clear without exudates NECK: Trachea midline, full range of motion, supple. LUNGS: bilateral lungs diminished, no crackles auscultated today, stable oxygen on room air HEART: irregular ABDOMEN: Soft, nontender, nondistended, normoactive bowel sounds EXTREMITIES: no edema. NEUROLOGICAL: Normal speech, gait not observed. PSYCH: Normal mood, normal affect. SKIN: surgical incision on center of chest, scaly skin on surgical site, no signs infection Laboratory Results - last 24 hr 08/07/19 08/07/19 08/07/19 05:40 05:40 09:15 WBC 6.6 RBC 4.40 Hgb 10.5 L Hct 33.1 MCV 75.3 L MCH 23.9 L MCHC 31.8 L RDW 20.5 H Plt Count 216 MPV 8.2 Absolute Neuts (auto) 3.8 Neutrophils % 57.5 Lymphocytes % 26.6 Monocytes % 11.7 H Eosinophils % 3.1 Basophils % 1.1 Nucleated RBC % 0 PT with INR 25.30 H INR 2.13 H Sodium 136 Potassium 3.9 Chloride 99 Carbon Dioxide 28 Anion Gap 9 BUN 28.5 H Creatinine 0.9 Est GFR (CKD-EPI)AfAm 73.52 Est GFR (CKD-EPI)NonAf 63.43 Random Glucose 102 Calcium 9.4 Magnesium 1.9 Total Bilirubin 0.3 AST 16 ALT 16 Alkaline Phosphatase 128 H Total Protein 8.0 Albumin 3.4 Active Medications Generic Name Dose Route Start Last Admin Trade Name Freq PRN Reason Stop Dose Admin Acetaminophen 650 mg 08/02/19 09:24 08/02/19 18:36 Tylenol - PO 650 mg Q6H PRN Administration PAIN LEVEL 1-5 Cholecalciferol 2,000 unit 08/02/19 10:00 08/07/19 09:19 Vitamin D3 - PO 2,000 unit DAILY [facility] Administration Clopidogrel Bisulfate 75 mg 08/02/19 10:00 08/07/19 09:19 Plavix - PO 75 mg DAILY [facility] Administration Digoxin 0.125 mg 08/06/19 10:00 08/07/19 09:19 Lanoxin - PO 0.125 mg DAILY [facility] Administration Diltiazem HCl 10 mg 08/01/19 17:24 Cardizem Injection - IVPUSH Q4H PRN TACHYCARDIA Diltiazem HCl 60 mg 08/02/19 11:49 08/07/19 05:30 Cardizem - PO 60 mg Q6HPO [facility] Administration Diphenhydramine HCl 25 mg 08/03/19 22:00 08/06/19 21:43 Benadryl - PO 25 mg HS [facility] Administration Furosemide 80 mg 08/03/19 11:47 08/07/19 05:30 Lasix Injection - IVPUSH 80 mg BID@0600,1400 [facility] Administration Lidocaine 1 patch 08/02/19 14:30 08/06/19 11:35 Lidoderm Patch - TP Not Given DAILY [facility] Magnesium Oxide 400 mg 08/06/19 22:00 08/07/19 09:19 Mag-Ox - PO 400 mg BID [facility] Administration Methyl Salicylate 1 applic 08/03/19 15:58 08/06/19 21:41 Prateek-Ko - TP Not Given BID [facility] Metoprolol Succinate 100 mg 08/03/19 11:15 08/07/19 09:19 Toprol Xl - PO 100 mg BID [facility] Administration Miscellaneous 1 each 08/02/19 22:00 08/06/19 21:42 Lidoderm Patch Removal MC Not Given DAILY@2200 [facility] Pantoprazole Sodium 40 mg 08/02/19 10:00 08/07/19 09:19 Protonix - PO 40 mg DAILY [facility] Administration Spironolactone 25 mg 08/02/19 10:00 08/07/19 09:19 Aldactone - PO 25 mg DAILY [facility] Administration Warfarin Sodium 4 mg 08/03/19 18:00 08/06/19 18:03 Coumadin - PO 4 mg DAILY@1800 [facility] Administration ASSESSMENT/PLAN: Problem List - Problems (1) Chest pain Assessment/Plan: resolved EKG: afib, no ischemic changes, unchanged Chest xray: congestive changes and bilateral pleural effusions, on lasix 80 bid troponins negative x 3 Code(s): R07.9 - CHEST PAIN, UNSPECIFIED (2) Atrial fibrillation with RVR Assessment/Plan: on coumadin, toprol, digoxin and cardizem tele monitor 90s-130s afib Code(s): I48.91 - UNSPECIFIED ATRIAL FIBRILLATION (3) Anticoagulated on Coumadin Assessment/Plan: inr therapeutic, goal is to maintain inr 2-3 on coumadin 4mg Code(s): Z79.01 - RESIDENTIAL (CURRENT) USE OF ANTICOAGULANTS (4) Elevated brain natriuretic peptide (BNP) level Assessment/Plan: trended down on repeat Code(s): R79.89 - OTHER SPECIFIED ABNORMAL FINDINGS OF BLOOD CHEMISTRY (5) HTN (hypertension) Assessment/Plan: controlled on toprol Code(s): I10 - ESSENTIAL (PRIMARY) HYPERTENSION (6) S/P MVR (mitral valve replacement) Assessment/Plan: cardiology following Code(s): Z95.2 - PRESENCE OF PROSTHETIC HEART VALVE (7) Prophylactic measure Assessment/Plan: physical therapy Code(s): Z29.9 - ENCOUNTER FOR PROPHYLACTIC MEASURES, UNSPECIFIED (8) DVT prophylaxis Assessment/Plan: on coumadin Code(s): Z29.9 - ENCOUNTER FOR PROPHYLACTIC MEASURES, UNSPECIFIED Visit type - Emergency Visit Emergency Visit: Yes ED Registration Date: 08/01/19 Care time: The patient presented to the Emergency Department on the above date and was hospitalized for further evaluation of their emergent condition. - New Patient This patient is new to me today: No - Critical Care Critical Care patient: No - Discharge Referral Referred to [facility] Med P.C.: No
[2019-08-07] MEDS: METHYL SALICYLATE/MENTHOL OINT 30 GM TUBE TP SCH ×2 (11:48→21:20)
[2019-08-07] MEDS: LIDOCAINE 5% TOPICAL PATCH TP SCH (11:48)
--- NOTE | 2019-08-07 12:21 | PN ---
Progress Note (short form) - Note Progress Note: s: sob improving, no palps. when walking yesterday HR 130s, otherwise controlled. no chest pain, dizziness, edema Current Medications Acetaminophen (Tylenol -) 650 mg PO Q6H PRN PRN Reason: PAIN LEVEL 1-5 Last Admin: 08/02/19 18:36 Dose: 650 mg Cholecalciferol (Vitamin D3 -) 2,000 unit PO DAILY [facility] Last Admin: 08/07/19 09:19 Dose: 2,000 unit Clopidogrel Bisulfate (Plavix -) 75 mg PO DAILY [facility] Last Admin: 08/07/19 09:19 Dose: 75 mg Digoxin (Lanoxin -) 0.125 mg PO DAILY [facility] Last Admin: 08/07/19 09:19 Dose: 0.125 mg Diltiazem HCl (Cardizem Injection -) 10 mg IVPUSH Q4H PRN PRN Reason: TACHYCARDIA Diltiazem HCl (Cardizem -) 60 mg PO Q6HPO [facility] Last Admin: 08/07/19 05:30 Dose: 60 mg Diphenhydramine HCl (Benadryl -) 25 mg PO HS [facility] Last Admin: 08/06/19 21:43 Dose: 25 mg Furosemide (Lasix Injection -) 80 mg IVPUSH BID@0600,1400 [facility] Last Admin: 08/07/19 05:30 Dose: 80 mg Lidocaine (Lidoderm Patch -) 1 patch TP DAILY [facility] Last Admin: 08/07/19 11:48 Dose: Not Given Magnesium Oxide (Mag-Ox -) 400 mg PO BID [facility] Last Admin: 08/07/19 09:19 Dose: 400 mg Methyl Salicylate (Prateek-Ko -) 1 applic TP BID [facility] Last Admin: 08/07/19 11:48 Dose: Not Given Metoprolol Succinate (Toprol Xl -) 100 mg PO BID [facility] Last Admin: 08/07/19 09:19 Dose: 100 mg Miscellaneous (Lidoderm Patch Removal) 1 each MC DAILY@2200 [facility] Last Admin: 08/06/19 21:42 Dose: Not Given Pantoprazole Sodium (Protonix -) 40 mg PO DAILY [facility] Last Admin: 08/07/19 09:19 Dose: 40 mg Spironolactone (Aldactone -) 25 mg PO DAILY [facility] Last Admin: 08/07/19 09:19 Dose: 25 mg Warfarin Sodium (Coumadin -) 4 mg PO DAILY@1800 [facility] Last Admin: 08/06/19 18:03 Dose: 4 mg Vital Signs Period Temp Pulse Resp BP Sys/Grullon Pulse Ox Last 24 Hr 97.7 F-98.7 F 68-92 18-18 105-125/48-68 96-96 Constitutional: Yes: No Distress Cardiovascular: Yes: Pulse Irregular Respiratory: Yes: Other (bibasilar rales 1/3 up) Gastrointestinal: Yes: Soft Edema: Yes Edema: LLE: 1+, RLE: 1+ Neurological: Yes: Alert, Oriented no jaundice, diaphoresis not agitated Assessment/Plan EKG 06/2019 afib, IRBBB, no ischemic changes, rate 114 bpm echo 06/2019 post op LV not well seen, prob borderline nl LV function (EF 50%), nl RV size, function, s/p bioMVR mean gradient 10 mmHg at HR 115, minimal MR, s/ p TV repair, no TR TANYA 01/2019 nl LV size/function, mild to mod dec RV function, mild RV dilation, mild AR, MV leaflets thickened and severely calcified/immobile, mean gradient 12 mmHg, PG 29 mmHg, MVA by planimetry 1.08 cm2, mod to severe central jet of MR , palmer score at least 12, severe post MAC, mild MN, no LA thrombus, lipomatous interatrial septum, sm pericardial effusion EKG: afib, no ischemic changes CXR: congestive changes and pastor pleural effusions tele: afib, mostly <100, occ episodes of rvr, no sig herberth/pauses atrial fibrillation: still with occasional periods RVR, which may be leading to refractory CHF - cont home metoprolol succinate 100 mg BID, increased diltiazem to 60 mg Q6H here. some episodes RVR -Soft BP limited further titration of Cardizem - cont digoxin - cont warfarin, goal INR 2-3 - rate control improving here - likely outpatient cardioversion with Dr. Angie TAYLOR at [place] after discharge acute diastolic CHF: - likely in setting of afib with RVR - most recent echo post op at [place] EF 50% with LV not well seen, stable bioMVR - nl LV function on echo here - Cr stable, weight stable, sob improving - cont lasix 80 mg IV BID - replete lytes for K>4, Mg >2 - monitor Cr, lytes, daily weights - repeat CXR HTN -hold arb as bp low with addition of ccb. PAD - cont plavix, coumadin s/p MVR, TV repair 06/2019 - stable on echo
[2019-08-07] MEDS: WARFARIN NA 2 MG TABLET (UD) PO SCH (17:09)
[2019-08-07] MEDS: LIDOCAINE PATCH REMOVAL MC SCH (21:20)
[2019-08-07] MEDS: diphenhydrAMINE HCL 25 MG CAPSULE (FP) PO SCH (21:21)
[2019-08-08] MEDS: FUROSEMIDE 40 MG/4 ML INJECTABLE VIAL IVPUSH SCH ×2 (05:03→14:53)
[2019-08-08] MEDS: dilTIAZem HCL 60 MG TABLET (FP) PO SCH ×4 (05:04→23:21)
[2019-08-08 07:06] LABS: BASO % 0.9 % (0-2.0); EOS % 2.8 % (0-4.5); HEMATOCRIT 34.4 % (32.4-45.2); HEMOGLOBIN 11.3 GM/dL (10.7-15.3); LYMPH % 23.6 % (8-40); MCH 24.6 pg (25.7-33.7); MCHC 32.8 g/dl (32.0-36.0); MEAN CELL VOLUME 74.8 fl (80-96); MONO % 11.3 % (3.8-10.2); NEUT % 61.4 % (42.8-82.8); PLATELET COUNT 207 K/MM3 (134-434); RBC 4.59 M/mm3 (3.60-5.2); RDW 20.2 % (11.6-15.6); WHITE BLOOD COUNT 6.5 K/mm3 (4.0-10.0)
[2019-08-08 07:30] LABS: INR 2.13 (0.83-1.09); PROTHROMBIN TIME (PATIENT) 25.3 SEC (9.7-13.0)
[2019-08-08 08:44] LABS: ALBUMIN 3.5 g/dl (3.4-5.0); BILIRUBIN,TOTAL 0.3 mg/dL (0.2-1); BLOOD UREA NITROGEN 27.9 mg/dL (7-18); CALCIUM 9.2 mg/dL (8.5-10.1); MAGNESIUM 1.8 mg/dL (1.8-2.4); POTASSIUM 3.9 mmol/L (3.5-5.1); TOT PROT 8.2 g/dl (6.4-8.2)
--- NOTE | 2019-08-08 10:06 | PN ---
Progress Note, Physician Chief Complaint: sob History of Present Illness: sob for few weeks now. today better, no sob at rest. however felt fatigued and mildly breathless when walked in halls no swelling no cp ex cigs - Current Medication List Current Medications: Active Medications Acetaminophen (Tylenol -) 650 mg PO Q6H PRN PRN Reason: PAIN LEVEL 1-5 Last Admin: 08/02/19 18:36 Dose: 650 mg Cholecalciferol (Vitamin D3 -) 2,000 unit PO DAILY [facility] Last Admin: 08/07/19 09:19 Dose: 2,000 unit Clopidogrel Bisulfate (Plavix -) 75 mg PO DAILY [facility] Last Admin: 08/07/19 09:19 Dose: 75 mg Digoxin (Lanoxin -) 0.125 mg PO DAILY [facility] Last Admin: 08/07/19 09:19 Dose: 0.125 mg Diltiazem HCl (Cardizem Injection -) 10 mg IVPUSH Q4H PRN PRN Reason: TACHYCARDIA Diltiazem HCl (Cardizem -) 60 mg PO Q6HPO [facility] Last Admin: 08/08/19 05:04 Dose: 60 mg Diphenhydramine HCl (Benadryl -) 25 mg PO HS [facility] Last Admin: 08/07/19 21:21 Dose: 25 mg Furosemide (Lasix Injection -) 80 mg IVPUSH BID@0600,1400 [facility] Last Admin: 08/08/19 05:03 Dose: 80 mg Lidocaine (Lidoderm Patch -) 1 patch TP DAILY [facility] Last Admin: 08/07/19 11:48 Dose: Not Given Magnesium Oxide (Mag-Ox -) 400 mg PO BID [facility] Last Admin: 08/07/19 21:21 Dose: 400 mg Methyl Salicylate (Prateek-Ko -) 1 applic TP BID [facility] Last Admin: 08/07/19 21:20 Dose: Not Given Metoprolol Succinate (Toprol Xl -) 100 mg PO BID [facility] Last Admin: 08/07/19 21:21 Dose: 100 mg Miscellaneous (Lidoderm Patch Removal) 1 each MC DAILY@2200 [facility] Last Admin: 08/07/19 21:20 Dose: Not Given Pantoprazole Sodium (Protonix -) 40 mg PO DAILY [facility] Last Admin: 08/07/19 09:19 Dose: 40 mg Spironolactone (Aldactone -) 25 mg PO DAILY [facility] Last Admin: 08/07/19 09:19 Dose: 25 mg Warfarin Sodium (Coumadin -) 4 mg PO DAILY@1800 [facility] Last Admin: 08/07/19 17:09 Dose: 4 mg - Objective Vital Signs: Vital Signs Temperature 98.3 F 08/08/19 05:43 Pulse Rate 87 08/08/19 05:43 Respiratory Rate 18 08/08/19 09:00 Blood Pressure 116/65 08/08/19 05:43 O2 Sat by Pulse Oximetry (%) 96 08/08/19 09:00 Constitutional: Yes: No Distress, Calm Eyes: No: Sclera Icterus HENT: No: Nasal Congestion Cardiovascular: Yes: Pulse Irregular, S1, S2, Other (PMI non diplaced). No: JVD , Gallop, Murmur Respiratory: Yes: CTA Bilaterally, Rales (fine rales L base). No: Accessory Muscle Use, Wheezes Gastrointestinal: Yes: Normal Bowel Sounds, Soft. No: Tenderness Musculoskeletal: Yes: Other (No kyphosis) Extremities: No: Cyanosis Edema: No Integumentary: No: Jaundice Neurological: Yes: Alert, Oriented (x3) Psychiatric: No: Agitated Labs: CBC, BMP 08/08/19 05:35 08/08/19 05:35 INR, PTT INR 2.13 (0.83-1.09) H 08/08/19 05:35 Assessment/Plan EKG 06/2019 afib, IRBBB, no ischemic changes, rate 114 bpm echo 06/2019 post op LV not well seen, prob borderline nl LV function (EF 50%), nl RV size, function, s/p bioMVR mean gradient 10 mmHg at HR 115, minimal MR, s/ p TV repair, no TR TANYA 01/2019 nl LV size/function, mild to mod dec RV function, mild RV dilation, mild AR, MV leaflets thickened and severely calcified/immobile, mean gradient 12 mmHg, PG 29 mmHg, MVA by planimetry 1.08 cm2, mod to severe central jet of MR , palmer score at least 12, severe post MAC, mild DC, no LA thrombus, lipomatous interatrial septum, sm pericardial effusion EKG: afib, no ischemic changes CXR: congestive changes and pastor pleural effusions tele: AF, good HR control (60s-90s) atrial fibrillation: - still with occasional periods RVR, which may be leading to refractory CHF-- darell given high bioMVR gradient noted at rapid HR on recent echo - aggressive HR control now achieved on current regimen (home metoprolol succinate 100 mg BID, digoxin, increased diltiazem to 60 mg Q6H here). - however ongoing NYHA III chf sx's today with ambulation despite no tachy burden on tele--if sx's persist once she is optimally diuresed, would consider rhythm control strategy if feasible (? when AF onset was)--plan is probable outpatient cardioversion with Dr. Adams [place] [facility] [place] - soft BP, tolerating AVN juan regimen at present--observe - cont warfarin, goal INR 2-3 acute diastolic CHF: - likely in setting of afib with RVR, with elevated bioMVR gradient - most recent echo post op at [facility] EF 50% with LV not well seen, no signif bioMVR regurgitation - nl LV function on echo here - congestion improving 08/07 CXR, not resolved. sob at rest resolved, still NYHA III sx's with ambulation. wt gradually declining with diuresis, CXR congestive picture improving--cont lasix 80 mg IV BID - rpt CXR - AF mgmt as above - replete lytes for K>4, Mg >2 HTN -hold arb as bp low with addition of ccb. PAD - cont plavix, coumadin s/p MVR, TV repair 06/2019 - stable on echo
[2019-08-08] MEDS: MAGNESIUM OXIDE 400 MG TABLET (FP) PO SCH ×2 (10:19→23:19)
[2019-08-08] MEDS: SPIRONOLACTONE 25 MG TABLET (FP) PO SCH (10:19)
[2019-08-08] MEDS: CHOLECALCIFEROL (VIT D3) 1,000 UNIT (25 MCG) TABLET PO SCH (10:19)
[2019-08-08] MEDS: PANTOPRAZOLE 20 MG TABLET (FP) PO SCH (10:19)
[2019-08-08] MEDS: DIGOXIN 0.125 MG TABLET (FP) PO SCH (10:19)
[2019-08-08] MEDS: CLOPIDOGREL BISULFATE 75 MG TABLET (FP) PO SCH (10:19)
[2019-08-08] MEDS: LIDOCAINE 5% TOPICAL PATCH TP SCH (10:22)
[2019-08-08] MEDS: METHYL SALICYLATE/MENTHOL OINT 30 GM TUBE TP SCH ×2 (10:22→23:28)
[2019-08-08] MEDS ORDERED: PT OWN MED DRAWER 7, Y5N ONE (12:41)
--- NOTE | 2019-08-08 17:06 | PN ---
Physical Exam: SUBJECTIVE: Patient seen and examined at the bedside. OBJECTIVE: Patient is a 73 year old female with a significant past medical history of hypertension, mitral stenosis s/p bioMVR (tissue) and TV repair 06/28/2019, pulm HTN, PAD, afib p/w dyspnea on exertion. She recently had MVR, complicated by post op afib now on coumadin. Was s/p cardioversion [place] [facility] now back in afib. Became more short of breath 2 days prior to admission with racing heart with minimal activity. Brought in by EMS and was found to be in afib with rvr which improved with cardizem. Discharge planning pending as patient may be transferred to [facility] for cardioversion. tele: afib 60s, 90s Vital Signs Period Temp Pulse Resp BP Sys/Grullon Pulse Ox Last 24 Hr 97.7 F-98.3 F 65-87 18-20 101-144/58-65 96-97 GENERAL: The patient is awake, alert, and fully oriented, in no acute distress. HEAD: Normal with no signs of trauma. EYES: PERRL, extraocular movements intact, sclera anicteric, conjunctiva clear. No ptosis. ENT: Ears normal, nares patent, oropharynx clear without exudates NECK: Trachea midline, full range of motion, supple. LUNGS: bilateral lungs diminished, no crackles auscultated today, stable oxygen on room air HEART: irregular ABDOMEN: Soft, nontender, nondistended, normoactive bowel sounds EXTREMITIES: no edema. NEUROLOGICAL: Normal speech, gait not observed. PSYCH: Normal mood, normal affect. SKIN: surgical incision on center of chest, scaly skin on surgical site, no signs infection Laboratory Results - last 24 hr 08/08/19 08/08/19 08/08/19 05:35 05:35 05:35 WBC 6.5 RBC 4.59 Hgb 11.3 Hct 34.4 MCV 74.8 L MCH 24.6 L MCHC 32.8 RDW 20.2 H Plt Count 207 MPV 8.0 Absolute Neuts (auto) 4.0 Neutrophils % 61.4 Lymphocytes % 23.6 Monocytes % 11.3 H Eosinophils % 2.8 Basophils % 0.9 Nucleated RBC % 0 PT with INR 25.30 H INR 2.13 H Sodium 136 Potassium 3.9 Chloride 98 Carbon Dioxide 30 Anion Gap 7 L BUN 27.9 H Creatinine 1.0 Est GFR (CKD-EPI)AfAm 64.73 Est GFR (CKD-EPI)NonAf 55.85 Random Glucose 104 Calcium 9.2 Magnesium 1.8 Total Bilirubin 0.3 AST 15 ALT 18 Alkaline Phosphatase 129 H Total Protein 8.2 Albumin 3.5 Digoxin 08/08/19 05:35 WBC RBC Hgb Hct MCV MCH MCHC RDW Plt Count MPV Absolute Neuts (auto) Neutrophils % Lymphocytes % Monocytes % Eosinophils % Basophils % Nucleated RBC % PT with INR INR Sodium Potassium Chloride Carbon Dioxide Anion Gap BUN Creatinine Est GFR (CKD-EPI)AfAm Est GFR (CKD-EPI)NonAf Random Glucose Calcium Magnesium Total Bilirubin AST ALT Alkaline Phosphatase Total Protein Albumin Digoxin 0.83 Active Medications Generic Name Dose Route Start Last Admin Trade Name Freq PRN Reason Stop Dose Admin Acetaminophen 650 mg 08/02/19 09:24 08/02/19 18:36 Tylenol - PO 650 mg Q6H PRN Administration PAIN LEVEL 1-5 Cholecalciferol 2,000 unit 08/02/19 10:00 08/08/19 10:19 Vitamin D3 - PO 2,000 unit DAILY [facility] Administration Clopidogrel Bisulfate 75 mg 08/02/19 10:00 08/08/19 10:19 Plavix - PO 75 mg DAILY [facility] Administration Digoxin 0.125 mg 08/06/19 10:00 08/08/19 10:19 Lanoxin - PO 0.125 mg DAILY [facility] Administration Diltiazem HCl 10 mg 08/01/19 17:24 Cardizem Injection - IVPUSH Q4H PRN TACHYCARDIA Diltiazem HCl 60 mg 08/02/19 11:49 08/08/19 12:44 Cardizem - PO 60 mg Q6HPO [facility] Administration Diphenhydramine HCl 25 mg 08/03/19 22:00 08/07/19 21:21 Benadryl - PO 25 mg HS [facility] Administration Furosemide 80 mg 08/03/19 11:47 08/08/19 14:53 Lasix Injection - IVPUSH 80 mg BID@0600,1400 [facility] Administration Lidocaine 1 patch 08/02/19 14:30 08/08/19 10:22 Lidoderm Patch - TP Not Given DAILY [facility] Magnesium Oxide 400 mg 08/06/19 22:00 08/08/19 10:19 Mag-Ox - PO 400 mg BID [facility] Administration Methyl Salicylate 1 applic 08/03/19 15:58 08/08/19 10:22 Prateek-Ko - TP Not Given BID [facility] Metoprolol Succinate 100 mg 08/03/19 11:15 08/08/19 10:19 Toprol Xl - PO 100 mg BID [facility] Administration Miscellaneous 1 each 08/02/19 22:00 08/07/19 21:20 Lidoderm Patch Removal MC Not Given DAILY@2200 [facility] Pantoprazole Sodium 40 mg 08/02/19 10:00 08/08/19 10:19 Protonix - PO 40 mg DAILY [facility] Administration Spironolactone 25 mg 08/02/19 10:00 08/08/19 10:19 Aldactone - PO 25 mg DAILY [facility] Administration Warfarin Sodium 4 mg 08/03/19 18:00 08/07/19 17:09 Coumadin - PO 4 mg DAILY@1800 [facility] Administration ASSESSMENT/PLAN: Problem List - Problems (1) Chest pain Assessment/Plan: resolved EKG: afib, no ischemic changes, unchanged Chest xray: congestive changes and bilateral pleural effusions, on lasix 80 bid troponins negative x 3 Code(s): R07.9 - CHEST PAIN, UNSPECIFIED (2) Atrial fibrillation with RVR Assessment/Plan: on coumadin, toprol, digoxin and cardizem tele monitor 90s-130s afib Code(s): I48.91 - UNSPECIFIED ATRIAL FIBRILLATION (3) Anticoagulated on Coumadin Assessment/Plan: inr therapeutic, goal is to maintain inr 2-3 on coumadin 4mg Code(s): Z79.01 - SKILLED NURSING (CURRENT) USE OF ANTICOAGULANTS (4) Elevated brain natriuretic peptide (BNP) level Assessment/Plan: trended down on repeat Code(s): R79.89 - OTHER SPECIFIED ABNORMAL FINDINGS OF BLOOD CHEMISTRY (5) HTN (hypertension) Assessment/Plan: controlled on toprol Code(s): I10 - ESSENTIAL (PRIMARY) HYPERTENSION (6) S/P MVR (mitral valve replacement) Assessment/Plan: cardiology following Code(s): Z95.2 - PRESENCE OF PROSTHETIC HEART VALVE (7) Prophylactic measure Assessment/Plan: physical therapy Code(s): Z29.9 - ENCOUNTER FOR PROPHYLACTIC MEASURES, UNSPECIFIED (8) DVT prophylaxis Assessment/Plan: on coumadin Code(s): Z29.9 - ENCOUNTER FOR PROPHYLACTIC MEASURES, UNSPECIFIED Visit type - Emergency Visit Emergency Visit: Yes ED Registration Date: 08/01/19 Care time: The patient presented to the Emergency Department on the above date and was hospitalized for further evaluation of their emergent condition. - New Patient This patient is new to me today: No - Critical Care Critical Care patient: No - Discharge Referral Referred to [facility] Med P.C.: No
[2019-08-08 18:07] VITALS: BMI 25.2
[2019-08-08] MEDS: ACETAMINOPHEN 325 MG TABLET (FP) PO PRN (20:05)
[2019-08-08] MEDS: LIDOCAINE PATCH REMOVAL MC SCH (23:20)
[2019-08-08] MEDS: diphenhydrAMINE HCL 25 MG CAPSULE (FP) PO SCH (23:20)
[2019-08-09] MEDS: FUROSEMIDE 40 MG/4 ML INJECTABLE VIAL IVPUSH SCH (06:56)
[2019-08-09] MEDS: dilTIAZem HCL 60 MG TABLET (FP) PO SCH ×3 (06:57→17:52)
[2019-08-09 07:25] LABS: BASO % 0.9 % (0-2.0); EOS % 3.3 % (0-4.5); HEMATOCRIT 35.6 % (32.4-45.2); HEMOGLOBIN 11.6 GM/dL (10.7-15.3); LYMPH % 26.9 % (8-40); MCH 24.5 pg (25.7-33.7); MCHC 32.7 g/dl (32.0-36.0); MEAN CELL VOLUME 75.1 fl (80-96); MEAN PLT VOLUME 7.9 fl (7.5-11.1); NEUT % 58.9 % (42.8-82.8); PLATELET COUNT 209 K/MM3 (134-434); RBC 4.74 M/mm3 (3.60-5.2); RDW 19.9 % (11.6-15.6); WHITE BLOOD COUNT 6.4 K/mm3 (4.0-10.0)
[2019-08-09 07:34] LABS: INR 1.92 (0.83-1.09); PROTHROMBIN TIME (PATIENT) 22.8 SEC (9.7-13.0)
[2019-08-09 07:53] LABS: ALBUMIN 3.7 g/dl (3.4-5.0); BILIRUBIN,TOTAL 0.4 mg/dL (0.2-1); BLOOD UREA NITROGEN 28.6 mg/dL (7-18); CALCIUM 9.6 mg/dL (8.5-10.1); CREATININE 1.1 mg/dL (0.55-1.3); POTASSIUM 4.2 mmol/L (3.5-5.1); TOT PROT 8.6 g/dl (6.4-8.2)
[2019-08-09] MEDS: PANTOPRAZOLE 20 MG TABLET (FP) PO SCH (10:20)
[2019-08-09] MEDS: MAGNESIUM OXIDE 400 MG TABLET (FP) PO SCH ×2 (10:20→22:10)
[2019-08-09] MEDS: CHOLECALCIFEROL (VIT D3) 1,000 UNIT (25 MCG) TABLET PO SCH (10:21)
[2019-08-09] MEDS: CLOPIDOGREL BISULFATE 75 MG TABLET (FP) PO SCH (10:21)
[2019-08-09] MEDS: SPIRONOLACTONE 25 MG TABLET (FP) PO SCH (10:21)
[2019-08-09] MEDS: DIGOXIN 0.125 MG TABLET (FP) PO SCH (10:21)
[2019-08-09] MEDS: LIDOCAINE 5% TOPICAL PATCH TP SCH (10:25)
[2019-08-09] MEDS: METHYL SALICYLATE/MENTHOL OINT 30 GM TUBE TP SCH ×2 (10:25→22:11)
--- NOTE | 2019-08-09 12:26 | PN ---
Progress Note (short form) - Note Progress Note: s: sob improving, noted to be eating salty meals, li's, cheese brought from home. no chest pain, palps, dizziness. ex cigs Current Medications Acetaminophen (Tylenol -) 650 mg PO Q6H PRN PRN Reason: PAIN LEVEL 1-5 Last Admin: 08/08/19 20:05 Dose: 650 mg Cholecalciferol (Vitamin D3 -) 2,000 unit PO DAILY [facility] Last Admin: 08/09/19 10:21 Dose: 2,000 unit Clopidogrel Bisulfate (Plavix -) 75 mg PO DAILY [facility] Last Admin: 08/09/19 10:21 Dose: 75 mg Digoxin (Lanoxin -) 0.125 mg PO DAILY [facility] Last Admin: 08/09/19 10:21 Dose: 0.125 mg Diltiazem HCl (Cardizem Injection -) 10 mg IVPUSH Q4H PRN PRN Reason: TACHYCARDIA Diltiazem HCl (Cardizem -) 60 mg PO Q6HPO [facility] Last Admin: 08/09/19 06:57 Dose: 60 mg Diphenhydramine HCl (Benadryl -) 25 mg PO HS [facility] Last Admin: 08/08/19 23:20 Dose: 25 mg Furosemide (Lasix Injection -) 80 mg IVPUSH BID@0600,1400 [facility] Last Admin: 08/09/19 06:56 Dose: 80 mg Lidocaine (Lidoderm Patch -) 1 patch TP DAILY [facility] Last Admin: 08/09/19 10:25 Dose: Not Given Magnesium Oxide (Mag-Ox -) 400 mg PO BID [facility] Last Admin: 08/09/19 10:20 Dose: 400 mg Methyl Salicylate (Prateek-Ko -) 1 applic TP BID [facility] Last Admin: 08/09/19 10:25 Dose: 1 applic Metoprolol Succinate (Toprol Xl -) 100 mg PO BID [facility] Last Admin: 08/09/19 10:20 Dose: 100 mg Miscellaneous (Lidoderm Patch Removal) 1 each MC DAILY@2200 [facility] Last Admin: 08/08/19 23:20 Dose: Not Given Pantoprazole Sodium (Protonix -) 40 mg PO DAILY [facility] Last Admin: 08/09/19 10:20 Dose: 40 mg Spironolactone (Aldactone -) 25 mg PO DAILY [facility] Last Admin: 08/09/19 10:21 Dose: 25 mg Vital Signs Period Temp Pulse Resp BP Sys/Grullon Pulse Ox Last 24 Hr 97.7 F-98.2 F 67-100 18-20 98-131/36-69 95-96 Constitutional: Yes: No Distress, Calm Eyes: No: Sclera Icterus HENT: No: Nasal Congestion Cardiovascular: Yes: Pulse Irregular, S1, S2, Other (PMI non diplaced). No: JVD , Gallop, Murmur Respiratory: Yes: CTA Bilaterally, Rales (fine rales L base). No: Accessory Muscle Use, Wheezes Gastrointestinal: Yes: Normal Bowel Sounds, Soft. No: Tenderness Musculoskeletal: Yes: Other (No kyphosis) Extremities: No: Cyanosis Edema: No Integumentary: No: Jaundice Neurological: Yes: Alert, Oriented (x3) Psychiatric: No: Agitated Assessment/Plan EKG 06/2019 afib, IRBBB, no ischemic changes, rate 114 bpm echo 06/2019 post op LV not well seen, prob borderline nl LV function (EF 50%), nl RV size, function, s/p bioMVR mean gradient 10 mmHg at HR 115, minimal MR, s/ p TV repair, no TR TANYA 01/2019 nl LV size/function, mild to mod dec RV function, mild RV dilation, mild AR, MV leaflets thickened and severely calcified/immobile, mean gradient 12 mmHg, PG 29 mmHg, MVA by planimetry 1.08 cm2, mod to severe central jet of MR , palmer score at least 12, severe post MAC, mild AL, no LA thrombus, lipomatous interatrial septum, sm pericardial effusion EKG: afib, no ischemic changes CXR: congestive changes and pastor pleural effusions - stable tele: AF, good HR control (60s-90s) atrial fibrillation: - still with occasional periods RVR, which may be leading to refractory CHF-- darell given high bioMVR gradient noted at rapid HR on recent echo - aggressive HR control now achieved on current regimen (home metoprolol succinate 100 mg BID, digoxin, increased diltiazem to 60 mg Q6H here). - however ongoing NYHA III chf sx's today with ambulation despite no tachy burden on tele--if sx's persist once she is optimally diuresed, would consider rhythm control strategy if feasible--plan is probable outpatient cardioversion with Dr. Adams EP at [facility] after discharge - soft BP, tolerating AVN juan regimen at present--observe - cont warfarin, goal INR 2-3 acute diastolic CHF: - likely in setting of afib with RVR, with elevated bioMVR gradient - most recent echo post op at [facility] [place] EF 50% with LV not well seen, no signif bioMVR regurgitation - nl LV function on echo here - congestion improving 08/07 CXR, not resolved. sob at rest resolved, still NYHA III sx's with ambulation. wt gradually declining with diuresis, CXR congestive picture improving, wt stable - inc lasix to 100 mg IV BID -sob likely also component of underlying interstitial lung dz and possible underlying COPD (long hx smoking, quit last year) - medical charge entry specialist consult, discussed low salt diet, fluid restriction with pt - AF mgmt as above - replete lytes for K>4, Mg >2 HTN -hold arb as bp low with addition of ccb. PAD - cont plavix, coumadin s/p MVR, TV repair 06/2019 - stable on echo
--- NOTE | 2019-08-09 12:52 | PN ---
Physical Exam: SUBJECTIVE: Patient seen and examined at the bedside. feels well, ambulating w/ o shortness of breath. OBJECTIVE: Patient is a 73 year old female with a significant past medical history of hypertension, mitral stenosis s/p bioMVR (tissue) and TV repair 06/28/2019, pulm HTN, PAD, afib p/w dyspnea on exertion. She recently had MVR, complicated by post op afib now on coumadin. Was s/p cardioversion at [facility] now back in afib. Became more short of breath 2 days prior to admission with racing heart with minimal activity. Brought in by EMS and was found to be in afib with rvr which improved with IV cardizem. tele: afib 60s, 90s dietary consult for high salt intake. Vital Signs Period Temp Pulse Resp BP Sys/Grullon Pulse Ox Last 24 Hr 97.7 F-98.2 F 67-100 18-20 98-131/36-69 95-96 GENERAL: The patient is awake, alert, and fully oriented, in no acute distress. HEAD: Normal with no signs of trauma. EYES: PERRL, extraocular movements intact, sclera anicteric, conjunctiva clear. No ptosis. ENT: Ears normal, nares patent, oropharynx clear without exudates NECK: Trachea midline, full range of motion, supple. LUNGS: bilateral lungs diminished, fine crackles on lower lobes, tolerating room air. HEART: irregular ABDOMEN: Soft, nontender, nondistended, normoactive bowel sounds EXTREMITIES: no edema. NEUROLOGICAL: Normal speech, gait not observed. PSYCH: Normal mood, normal affect. SKIN: surgical incision on center of chest, scaly skin on surgical site, no signs infection Laboratory Results - last 24 hr 08/09/19 08/09/19 08/09/19 05:50 05:50 05:50 WBC 6.4 RBC 4.74 Hgb 11.6 Hct 35.6 MCV 75.1 L MCH 24.5 L MCHC 32.7 RDW 19.9 H Plt Count 209 MPV 7.9 Absolute Neuts (auto) 3.8 Neutrophils % 58.9 Lymphocytes % 26.9 Monocytes % 10.0 Eosinophils % 3.3 Basophils % 0.9 Nucleated RBC % 0 PT with INR 22.80 H INR 1.92 H Sodium 135 L Potassium 4.2 Chloride 97 L Carbon Dioxide 33 H Anion Gap 5 L BUN 28.6 H Creatinine 1.1 Est GFR (CKD-EPI)AfAm 57.68 Est GFR (CKD-EPI)NonAf 49.77 Random Glucose 93 Calcium 9.6 Magnesium 2.0 Total Bilirubin 0.4 AST 19 ALT 19 Alkaline Phosphatase 137 H Total Protein 8.6 H Albumin 3.7 Active Medications Generic Name Dose Route Start Last Admin Trade Name Freq PRN Reason Stop Dose Admin Acetaminophen 650 mg 08/02/19 09:24 08/08/19 20:05 Tylenol - PO 650 mg Q6H PRN Administration PAIN LEVEL 1-5 Cholecalciferol 2,000 unit 08/02/19 10:00 08/09/19 10:21 Vitamin D3 - PO 2,000 unit DAILY LISET Administration Clopidogrel Bisulfate 75 mg 08/02/19 10:00 08/09/19 10:21 Plavix - PO 75 mg DAILY [facility] Administration Digoxin 0.125 mg 08/06/19 10:00 08/09/19 10:21 Lanoxin - PO 0.125 mg DAILY [facility] Administration Diltiazem HCl 10 mg 08/01/19 17:24 Cardizem Injection - IVPUSH Q4H PRN TACHYCARDIA Diltiazem HCl 60 mg 08/02/19 11:49 08/09/19 12:38 Cardizem - PO 60 mg Q6HPO LISET Administration Diphenhydramine HCl 25 mg 08/03/19 22:00 08/08/19 23:20 Benadryl - PO 25 mg HS [facility]ISET Administration Furosemide 100 mg 08/09/19 12:25 Lasix Injection - IVPUSH BID@0600,1400 [facility] Lidocaine 1 patch 08/02/19 14:30 08/09/19 10:25 Lidoderm Patch - TP Not Given DAILY [facility] Magnesium Oxide 400 mg 08/06/19 22:00 08/09/19 10:20 Mag-Ox - PO 400 mg BID [facility] Administration Methyl Salicylate 1 applic 08/03/19 15:58 08/09/19 10:25 Prateek-Ko - TP 1 applic BID [facility] Administration Metoprolol Succinate 100 mg 08/03/19 11:15 08/09/19 10:20 Toprol Xl - PO 100 mg BID [facility] Administration Miscellaneous 1 each 08/02/19 22:00 08/08/19 23:20 Lidoderm Patch Removal MC Not Given DAILY@2200 [facility] Pantoprazole Sodium 40 mg 08/02/19 10:00 08/09/19 10:20 Protonix - PO 40 mg DAILY [facility] Administration Spironolactone 25 mg 08/02/19 10:00 08/09/19 10:21 Aldactone - PO 25 mg DAILY LISET Administration ASSESSMENT/PLAN: Problem List - Problems (1) Chest pain Assessment/Plan: resolved EKG: afib, no ischemic changes, unchanged Chest xray: congestive changes and bilateral pleural effusions, on lasix iv 80 bid troponins negative x 3 Code(s): R07.9 - CHEST PAIN, UNSPECIFIED (2) Atrial fibrillation with RVR Assessment/Plan: on coumadin, toprol, digoxin and cardizem tele monitor 90s-130s afib Code(s): I48.91 - UNSPECIFIED ATRIAL FIBRILLATION (3) Anticoagulated on Coumadin Assessment/Plan: inr therapeutic, goal is to maintain inr 2-3 on coumadin 4mg Code(s): Z79.01 - MCFP (CURRENT) USE OF ANTICOAGULANTS (4) Elevated brain natriuretic peptide (BNP) level Assessment/Plan: trended down on repeat Code(s): R79.89 - OTHER SPECIFIED ABNORMAL FINDINGS OF BLOOD CHEMISTRY (5) HTN (hypertension) Assessment/Plan: controlled on toprol Code(s): I10 - ESSENTIAL (PRIMARY) HYPERTENSION (6) S/P MVR (mitral valve replacement) Assessment/Plan: cardiology following Code(s): Z95.2 - PRESENCE OF PROSTHETIC HEART VALVE (7) Prophylactic measure Assessment/Plan: physical therapy Code(s): Z29.9 - ENCOUNTER FOR PROPHYLACTIC MEASURES, UNSPECIFIED (8) DVT prophylaxis Assessment/Plan: on coumadin Code(s): Z29.9 - ENCOUNTER FOR PROPHYLACTIC MEASURES, UNSPECIFIED Visit type - Emergency Visit Emergency Visit: Yes ED Registration Date: 08/01/19 Care time: The patient presented to the Emergency Department on the above date and was hospitalized for further evaluation of their emergent condition. - New Patient This patient is new to me today: No - Critical Care Critical Care patient: No - Discharge Referral Referred to [facility] No
[2019-08-09] MEDS: FUROSEMIDE 100 MG/10 ML INJECTABLE VIAL IVPUSH SCH (14:24)
[2019-08-09] MEDS: diphenhydrAMINE HCL 25 MG CAPSULE (FP) PO SCH (22:10)
[2019-08-09] MEDS: LIDOCAINE PATCH REMOVAL MC SCH (22:19)
[2019-08-10] MEDS: dilTIAZem HCL 60 MG TABLET (FP) PO SCH ×2 (00:32→06:53)
[2019-08-10 06:46] LABS: HEMATOCRIT 35.5 % (32.4-45.2); HEMOGLOBIN 11.5 GM/dL (10.7-15.3); LYMPH % 24.5 % (8-40); MCH 24.5 pg (25.7-33.7); MCHC 32.5 g/dl (32.0-36.0); MEAN CELL VOLUME 75.5 fl (80-96); MEAN PLT VOLUME 7.9 fl (7.5-11.1); MONO % 10.9 % (3.8-10.2); NEUT % 60.6 % (42.8-82.8); PLATELET COUNT 211 K/MM3 (134-434); RDW 19.4 % (11.6-15.6); WHITE BLOOD COUNT 6.8 K/mm3 (4.0-10.0)
[2019-08-10] MEDS: FUROSEMIDE 100 MG/10 ML INJECTABLE VIAL IVPUSH SCH (06:53)
[2019-08-10 06:54] LABS: INR 1.65 (0.83-1.09); PROTHROMBIN TIME (PATIENT) 19.6 SEC (9.7-13.0)
[2019-08-10 07:10] LABS: ALBUMIN 3.5 g/dl (3.4-5.0); BILIRUBIN,TOTAL 0.5 mg/dL (0.2-1); BLOOD UREA NITROGEN 32.8 mg/dL (7-18); CALCIUM 9.7 mg/dL (8.5-10.1); MAGNESIUM 1.9 mg/dL (1.8-2.4); POTASSIUM 4.3 mmol/L (3.5-5.1); TOT PROT 8.4 g/dl (6.4-8.2)
--- NOTE | 2019-08-10 08:07 | PN ---
Physical Exam: SUBJECTIVE: Patient seen and examined at the bedside. ambulated this a.m., did not feel any palpitations but had shortness of breath with phyisical exertion OBJECTIVE: tele: afib 130s-140s with ambulation inr. 1.65 (will give coumadin 5 now as coumadin previously fell off emar) ------- Patient is a 73 year old female with a significant past medical history of hypertension, mitral stenosis s/p bioMVR (tissue) and TV repair 06/28/2019, pulm HTN, PAD, afib p/w dyspnea on exertion. She recently had MVR, complicated by post op afib now on coumadin. Was s/p cardioversion at [facility] now back in afib. Became more short of breath 2 days prior to admission with racing heart with minimal activity. Brought in by EMS and was found to be in afib with rvr which improved with IV cardizem. Vital Signs Period Temp Pulse Resp BP Sys/Grullon Pulse Ox Last 24 Hr 97.4 F-97.9 F 63-118 17-20 98-120/45-71 92-96 GENERAL: The patient is awake, alert, and fully oriented, in no acute distress. HEAD: Normal with no signs of trauma. EYES: PERRL, extraocular movements intact, sclera anicteric, conjunctiva clear. No ptosis. ENT: Ears normal, nares patent, oropharynx clear without exudates NECK: Trachea midline, full range of motion, supple. LUNGS: +crackles on left base and right base. +dry cough. tolerating room air HEART: irregular 130s/140s ABDOMEN: Soft, nontender, nondistended, normoactive bowel sounds EXTREMITIES: no edema. NEUROLOGICAL: Normal speech, gait not observed. PSYCH: Normal mood, normal affect. SKIN: surgical incision on center of chest, scaly skin on surgical site, no signs infection Laboratory Results - last 24 hr 08/10/19 08/10/19 08/10/19 05:50 05:50 05:50 WBC 6.8 RBC 4.70 Hgb 11.5 Hct 35.5 MCV 75.5 L MCH 24.5 L MCHC 32.5 RDW 19.4 H Plt Count 211 MPV 7.9 Absolute Neuts (auto) 4.1 Neutrophils % 60.6 Lymphocytes % 24.5 Monocytes % 10.9 H Eosinophils % 3.0 Basophils % 1.0 Nucleated RBC % 0 PT with INR 19.60 H INR 1.65 H Sodium 136 Potassium 4.3 Chloride 98 Carbon Dioxide 33 H Anion Gap 6 L BUN 32.8 H Creatinine 1.0 Est GFR (CKD-EPI)AfAm 64.73 Est GFR (CKD-EPI)NonAf 55.85 Random Glucose 111 H Calcium 9.7 Magnesium 1.9 Total Bilirubin 0.5 AST 23 ALT 24 Alkaline Phosphatase 139 H Total Protein 8.4 H Albumin 3.5 Active Medications Generic Name Dose Route Start Last Admin Trade Name Freq PRN Reason Stop Dose Admin Acetaminophen 650 mg 08/02/19 09:24 08/08/19 20:05 Tylenol - PO 650 mg Q6H PRN Administration PAIN LEVEL 1-5 Cholecalciferol 2,000 unit 08/02/19 10:00 08/09/19 10:21 Vitamin D3 - PO 2,000 unit DAILY LISET Administration Clopidogrel Bisulfate 75 mg 08/02/19 10:00 08/09/19 10:21 Plavix - PO 75 mg DAILY LISET Administration Digoxin 0.125 mg 08/06/19 10:00 08/09/19 10:21 Lanoxin - PO 0.125 mg DAILY [facility] Administration Diltiazem HCl 10 mg 08/01/19 17:24 Cardizem Injection - IVPUSH Q4H PRN TACHYCARDIA Diltiazem HCl 60 mg 08/02/19 11:49 08/10/19 06:53 Cardizem - PO Not Given Q6HPO [facility] Diphenhydramine HCl 25 mg 08/03/19 22:00 08/09/19 22:10 Benadryl - PO 25 mg HS [facility] Administration Furosemide 100 mg 08/09/19 12:25 08/10/19 06:53 Lasix Injection - IVPUSH 100 mg BID@0600,1400 [facility] Administration Lidocaine 1 patch 08/02/19 14:30 08/09/19 10:25 Lidoderm Patch - TP Not Given DAILY [facility] Magnesium Oxide 400 mg 08/06/19 22:00 08/09/19 22:10 Mag-Ox - PO 400 mg BID [facility]ET Administration Methyl Salicylate 1 applic 08/03/19 15:58 08/09/19 22:11 Prateek-Ko - TP 1 applic BID [facility] Administration Metoprolol Succinate 100 mg 08/03/19 11:15 08/09/19 22:10 Toprol Xl - PO 100 mg BID LISET Administration Miscellaneous 1 each 08/02/19 22:00 08/09/19 22:19 Lidoderm Patch Removal MC Not Given DAILY@2200 [facility] Pantoprazole Sodium 40 mg 08/02/19 10:00 08/09/19 10:20 Protonix - PO 40 mg DAILY LISET Administration Spironolactone 25 mg 08/02/19 10:00 08/09/19 10:21 Aldactone - PO 25 mg DAILY LISET Administration ASSESSMENT/PLAN: Problem List - Problems (1) Chest pain Assessment/Plan: resolved EKG: afib, no ischemic changes, unchanged Chest xray: congestive changes and bilateral pleural effusions, on lasix iv 80 bid troponins negative x 3 Code(s): R07.9 - CHEST PAIN, UNSPECIFIED (2) Atrial fibrillation with RVR Assessment/Plan: on coumadin, toprol, digoxin and cardizem tele monitor 90s-130s afib Code(s): I48.91 - UNSPECIFIED ATRIAL FIBRILLATION (3) Anticoagulated on Coumadin Assessment/Plan: inr therapeutic, goal is to maintain inr 2-3 on coumadin based on inr Code(s): Z79.01 - [facility]ATCHER (CURRENT) USE OF ANTICOAGULANTS (4) Elevated brain natriuretic peptide (BNP) level Assessment/Plan: trended down on repeat Code(s): R79.89 - OTHER SPECIFIED ABNORMAL FINDINGS OF BLOOD CHEMISTRY (5) HTN (hypertension) Assessment/Plan: controlled on toprol Code(s): I10 - ESSENTIAL (PRIMARY) HYPERTENSION (6) S/P MVR (mitral valve replacement) Assessment/Plan: cardiology following Code(s): Z95.2 - PRESENCE OF PROSTHETIC HEART VALVE (7) Prophylactic measure Assessment/Plan: physical therapy Code(s): Z29.9 - ENCOUNTER FOR PROPHYLACTIC MEASURES, UNSPECIFIED (8) DVT prophylaxis Assessment/Plan: on coumadin Code(s): Z29.9 - ENCOUNTER FOR PROPHYLACTIC MEASURES, UNSPECIFIED (9) Severe malnutrition Assessment/Plan: per dietary, patient bmi suggest overweight, but patient exhibits severe malnutrition based on chronic illness, poor high salt intake and food choices, poor eating habits and fluid retention. on lasix 100 bid iv for chf. has hypomagnesium and currently on supplements Code(s): E43 - UNSPECIFIED SEVERE PROTEIN-CALORIE MALNUTRITION Visit type - Emergency Visit Emergency Visit: Yes ED Registration Date: 08/01/19 Care time: The patient presented to the Emergency Department on the above date and was hospitalized for further evaluation of their emergent condition. - New Patient This patient is new to me today: No - Critical Care Critical Care patient: No - Discharge Referral Referred to [facility] No
[2019-08-10] MEDS: MAGNESIUM OXIDE 400 MG TABLET (FP) PO SCH (09:37)
[2019-08-10] MEDS: DIGOXIN 0.125 MG TABLET (FP) PO SCH (09:37)
[2019-08-10] MEDS: CHOLECALCIFEROL (VIT D3) 1,000 UNIT (25 MCG) TABLET PO SCH (09:38)
[2019-08-10] MEDS: CLOPIDOGREL BISULFATE 75 MG TABLET (FP) PO SCH (09:38)
[2019-08-10] MEDS: LIDOCAINE 5% TOPICAL PATCH TP SCH (09:38)
[2019-08-10] MEDS: SPIRONOLACTONE 25 MG TABLET (FP) PO SCH (09:38)
[2019-08-10] MEDS: PANTOPRAZOLE 20 MG TABLET (FP) PO SCH (09:38)
[2019-08-10] MEDS: METHYL SALICYLATE/MENTHOL OINT 30 GM TUBE TP SCH (09:39)
[2019-08-10] MEDS ORDERED: WARFARIN NA 5 MG TABLET (UD) PO ONE (10:15)
--- NOTE | 2019-08-10 12:08 | PN ---
Progress Note (short form) - Note Progress Note: s: sob better, wants to go home. warfarin dose not given yesterday, this AM did not receive cardizem x 2 doses for low BPs. No chest pain, palps, dizziness , dyspnea ex cigs Current Medications Acetaminophen (Tylenol -) 650 mg PO Q6H PRN PRN Reason: PAIN LEVEL 1-5 Last Admin: 08/08/19 20:05 Dose: 650 mg Cholecalciferol (Vitamin D3 -) 2,000 unit PO DAILY [facility] Last Admin: 08/10/19 09:38 Dose: 2,000 unit Clopidogrel Bisulfate (Plavix -) 75 mg PO DAILY [facility] Last Admin: 08/10/19 09:38 Dose: 75 mg Digoxin (Lanoxin -) 0.125 mg PO DAILY [facility] Last Admin: 08/10/19 09:37 Dose: 0.125 mg Diltiazem HCl (Cardizem Injection -) 10 mg IVPUSH Q4H PRN PRN Reason: TACHYCARDIA Diltiazem HCl (Cardizem Cd -) 240 mg PO DAILY [facility] Last Admin: 08/10/19 09:38 Dose: 240 mg Diphenhydramine HCl (Benadryl -) 25 mg PO HS [facility] Last Admin: 08/09/19 22:10 Dose: 25 mg Furosemide (Lasix Injection -) 100 mg IVPUSH BID@0600,1400 [facility] Last Admin: 08/10/19 06:53 Dose: 100 mg Lidocaine (Lidoderm Patch -) 1 patch TP DAILY [facility] Last Admin: 08/10/19 09:38 Dose: Not Given Magnesium Oxide (Mag-Ox -) 400 mg PO BID [facility] Last Admin: 08/10/19 09:37 Dose: 400 mg Methyl Salicylate (Prateek-Ko -) 1 applic TP BID [facility] Last Admin: 08/10/19 09:39 Dose: Not Given Metoprolol Succinate (Toprol Xl -) 100 mg PO BID [facility] Last Admin: 08/10/19 09:38 Dose: 100 mg Miscellaneous (Lidoderm Patch Removal) 1 each MC DAILY@2200 [facility] Last Admin: 08/09/19 22:19 Dose: Not Given Pantoprazole Sodium (Protonix -) 40 mg PO DAILY [facility] Last Admin: 08/10/19 09:38 Dose: 40 mg Spironolactone (Aldactone -) 25 mg PO DAILY [facility] Last Admin: 08/10/19 09:38 Dose: 25 mg Warfarin Sodium (Coumadin -) 5 mg PO DAILY@1800 [facility] Vital Signs Period Temp Pulse Resp BP Sys/Grullon Pulse Ox Last 24 Hr 97.4 F-97.9 F 63-118 17-20 99-140/45-76 92-97 Constitutional: Yes: No Distress, Calm Eyes: No: Sclera Icterus HENT: No: Nasal Congestion Cardiovascular: Yes: Pulse Irregular, S1, S2, Other (PMI non diplaced). No: JVD , Gallop, Murmur Respiratory: Yes: CTA Bilaterally, Rales (fine rales L base). No: Accessory Muscle Use, Wheezes Gastrointestinal: Yes: Normal Bowel Sounds, Soft. No: Tenderness Musculoskeletal: Yes: Other (No kyphosis) Extremities: No: Cyanosis Edema: No Integumentary: No: Jaundice Neurological: Yes: Alert, Oriented (x3) Psychiatric: No: Agitated Assessment/Plan EKG 06/2019 afib, IRBBB, no ischemic changes, rate 114 bpm echo 06/2019 post op LV not well seen, prob borderline nl LV function (EF 50%), nl RV size, function, s/p bioMVR mean gradient 10 mmHg at HR 115, minimal MR, s/ p TV repair, no TR TANYA 01/2019 nl LV size/function, mild to mod dec RV function, mild RV dilation, mild AR, MV leaflets thickened and severely calcified/immobile, mean gradient 12 mmHg, PG 29 mmHg, MVA by planimetry 1.08 cm2, mod to severe central jet of MR , palmer score at least 12, severe post MAC, mild IA, no LA thrombus, lipomatous interatrial septum, sm pericardial effusion EKG: afib, no ischemic changes CXR: congestive changes and pastor pleural effusions - stable tele: AF, good HR control (60s-90s) generally- this AM rates 130s-140s atrial fibrillation: - still with occasional periods RVR, which may be leading to refractory CHF-- darell given high bioMVR gradient noted at rapid HR on recent echo - aggressive HR control now achieved on current regimen (home metoprolol succinate 100 mg BID, digoxin, increased diltiazem to 60 mg Q6H here). - RVR this AM likely in setting of missing diltiazem doses - change cardizem to 240 mg daily CD and continue along with metoprolol succinate 100 mg BID, digoxin 0.125 mg daily - d/w Dr. Adams at [facility] [place] EP - plan for outpatient cardioversion - cont warfarin, goal INR 2-3 - missed dose yesterday, INR subtherapeutic today. plan for INR check at the office on Thursday acute diastolic CHF: - likely in setting of afib with RVR, with elevated bioMVR gradient - most recent echo post op at [facility] [place] EF 50% with LV not well seen, no signif bioMVR regurgitation - nl LV function on echo here - sob at baseline now after IV diuresis-sob likely also component of underlying interstitial lung dz and possible underlying COPD (long hx smoking, quit last year) - change to lasix 80 mg PO BID with plan for outpatient BMP on Thursday along with INR - advised daily weights, call if weight increased more than 3 lbs - assistant public defender consult, discussed low salt diet, fluid restriction with pt - AF mgmt as above - replete lytes for K>4, Mg >2 HTN -cont to hold arb as bp low with addition of ccb. PAD - cont plavix, coumadin s/p MVR, TV repair 06/2019 - stable on echo
--- NOTE | 2019-08-10 12:39 | DS ---
Physical Exam: SUBJECTIVE: Patient seen and examined at the bedside. ambulated this a.m., did not feel any palpitations but had shortness of breath with phyisical exertion OBJECTIVE: tele: afib 130s-140s with ambulation inr. 1.65 (will give coumadin 5 now as coumadin previously fell off emar patient to recheck inr this thursday with her investment counselor) ------- Patient is a 73 year old female with a significant past medical history of hypertension, mitral stenosis s/p bioMVR (tissue) and TV repair 06/28/2019, pulm HTN, PAD, afib p/w dyspnea on exertion. She recently had MVR, complicated by post op afib now on coumadin. Was s/p cardioversion at [facility] now back in afib. Became more short of breath 2 days prior to admission with racing heart with minimal activity. Brought in by EMS and was found to be in afib with rvr which improved with IV cardizem. During hospitalization patient treated with uptitration of cardizem, digoxin and supplemental oxygen. She was initially on supplemental oxygen of 2-3 liters, but was weaned off and now tolerating room air. A respiratory pre and post shows that patient does not qualify for home oxygen. Patient will be discharged home today and she will follow up with Dr. Baca and Dr. Adams for possible cardioversion at [place]. Her cardiac medications were titrated during hospital stay. She is tolerating room air and now on Lasix 80mg twice daily. She will be discharged on Coumadin 4mg, Cardizem 240mg daily, Toprol 100mg bid, Digoxin 0.125mg daily, Aldactone 25mg daily, magnesium 400mg bid. SEE PROBLEM LIST BELOW: OBJECTIVE: GENERAL: The patient is awake, alert, and fully oriented, in no acute distress. HEAD: Normal with no signs of trauma. EYES: PERRL, extraocular movements intact, sclera anicteric, conjunctiva clear. No ptosis. ENT: Ears normal, nares patent, oropharynx clear without exudates NECK: Trachea midline, full range of motion, supple. LUNGS: fine crackles on bilateral bases, tolerating room air, does not qualify for home oxygen. HEART: irregular 130s/140s with ambulation, 60s-90s at rest. ABDOMEN: Soft, nontender, nondistended, normoactive bowel sounds EXTREMITIES: no edema. NEUROLOGICAL: Normal speech, gait steady PSYCH: Normal mood, normal affect. SKIN: surgical incision on center of chest, scaly skin on surgical site, no signs infection Vital Signs Period Temp Pulse Resp BP Sys/[place] Pulse Ox Last 24 Hr 97.4 F-97.9 F 63-118 17-20 99-140/45-76 92-97 PHYSICAL EXAM Laboratory Results - last 24 hr 08/10/19 08/10/19 08/10/19 05:50 05:50 05:50 WBC 6.8 RBC 4.70 Hgb 11.5 Hct 35.5 MCV 75.5 L MCH 24.5 L MCHC 32.5 RDW 19.4 H Plt Count 211 MPV 7.9 Absolute Neuts (auto) 4.1 Neutrophils % 60.6 Lymphocytes % 24.5 Monocytes % 10.9 H Eosinophils % 3.0 Basophils % 1.0 Nucleated RBC % 0 PT with INR 19.60 H INR 1.65 H Sodium 136 Potassium 4.3 Chloride 98 Carbon Dioxide 33 H Anion Gap 6 L BUN 32.8 H Creatinine 1.0 Est GFR (CKD-EPI)AfAm 64.73 Est GFR (CKD-EPI)NonAf 55.85 Random Glucose 111 H Calcium 9.7 Magnesium 1.9 Total Bilirubin 0.5 AST 23 ALT 24 Alkaline Phosphatase 139 H Total Protein 8.4 H Albumin 3.5 HOSPITAL COURSE: Date of Admission:08/01/19 Date of Discharge: 08/10/19 Minutes to complete discharge: 45 Discharge Summary Problems reviewed: Yes Reason For Visit: ATRIAL FIBRILLATION W RAPID VENTRICULAR RESP Current Active Problems Anticoagulated on Coumadin (Acute) Atrial fibrillation with RVR (Acute) Chest pain (Acute) Cirrhosis (Acute) DVT prophylaxis (Acute) Elevated brain natriuretic peptide (BNP) level (Acute) HCV (hepatitis C virus) (Acute) HTN (hypertension) (Acute) Prophylactic measure (Acute) S/P MVR (mitral valve replacement) (Acute) Severe malnutrition (Acute) Condition: Stable - Instructions Diet, Activity, Other Instructions: Mrs Nieves: You were admitted for acute shortness of breath and irregular heart rate. During your stay your were evaluated by your investment counselor. Here are our recommendations for discharge. Irregular heart rate/atrial fibrillation What is atrial fibrillation? Atrial fibraillation is a rapid and irregular heart rate that commonly causes poor blood flow. How is my atrial fibrillation treated? We are treated your atrial fibrillation with Metoprolol 100mg TWICE per day, Digoxin 0.125mg ONCE per day and Cardizem 240mg ONCE per day. You will need to see Dr. Adams at [place] for another cardioversion. Continue Coumadin 4mg once per day. and have your INR rechecked this Thursday with Dr Baca. Acute diastolic congestive heart failure. What is acute diastolic congestive heart failure? It is a condition when the lower left chamber of the heart is not able to fill properly with blood during the resting phase of the heart. How is this treated? This is treated with Lasix 80mg TWICE per day. You will need to weight yourself daily and call Dr. Baca if your weight goes up more than 3 pounds or if you are more short of breath. Follow ups: Please follow up with Dr. Baca by calling her office for an appointment. Please follow up with your primary care doctor within 3-5 days after discharge. Thank you for allowing us to care for you: Here is a list of your medications we are sending you home with: Digoxin (Lanoxin) 0.25mg ONCE PER DAY AT 8AM - Diltiazem (Cardizem) 240mg ONCE PER DAY AT 8AM - Lasix (Furosemide) 80mg TWICE PER DAY AT 8AM AND 8PM - Magnesium oxide 400mg TWICE PER DAY AT 8AM AND 8PM - Metoprolol Succicinate 100MG TWICE PER DAY AT 8AM AND 8PM - Warfarin (Coumadin) 4mg ONCE PER DAY AT 6PM - Plavix 75mg ONCE PER DAY Aldactone 25mg daily Referrals: Christian Zeng MD [Primary Care Provider] - Disposition: HOME - Home Medications Comprehensive Discharge Medication List: Ambulatory Orders Cholecalciferol (Vitamin D3) [Vitamin D3] 2,000 unit PO DAILY 04/12/15 Pantoprazole Sodium [Protonix -] 40 mg PO DAILY 04/12/15 Clopidogrel Bisulfate [Plavix -] 75 mg PO DAILY #30 tablet 03/01/19 Digoxin [Lanoxin -] 0.125 mg PO DAILY #90 tablet 08/09/19 Magnesium Oxide [Mag-Ox -] 400 mg PO BID #90 tablet 08/09/19 Metoprolol Succinate [Toprol XL -] 100 mg PO BID #120 tab.sr.24h 08/09/19 Warfarin Na [Coumadin -] 4 mg PO DAILY@1800 #120 tablet 08/09/19 Diltiazem Cd [Cardizem Cd -] 240 mg PO DAILY #90 cap.cd.24h 08/10/19 Furosemide [Lasix -] 80 mg PO BID@0600,1400 #120 tablet 08/10/19 Spironolactone [Aldactone -] 25 mg PO DAILY tablet 08/10/19 Spironolactone [Aldactone] 25 mg PO DAILY #90 tablet 08/10/19 Problem List - Problems (1) Chest pain Assessment/Plan: resolved EKG: afib, no ischemic changes, unchanged troponins negative x 3 Code(s): R07.9 - CHEST PAIN, UNSPECIFIED (2) Atrial fibrillation with RVR Assessment/Plan: Patient to be sent home on Coumadin 4mg daily, Toprol succinate 100mg BID, Digoxin 0.125mg daily, Cardizem 240mg XL daily. tele monitor 90s-130s afib for cardioversion at [place] to be arranged as an outpatient. Code(s): I48.91 - UNSPECIFIED ATRIAL FIBRILLATION (3) Anticoagulated on Coumadin Assessment/Plan: inr therapeutic, goal is to maintain inr 2-3 on coumadin based on inr Code(s): Z79.01 - INTERMEDIATE (CURRENT) USE OF ANTICOAGULANTS (4) Elevated brain natriuretic peptide (BNP) level Assessment/Plan: trended down on repeat Code(s): R79.89 - OTHER SPECIFIED ABNORMAL FINDINGS OF BLOOD CHEMISTRY (5) HTN (hypertension) Assessment/Plan: controlled on toprol Code(s): I10 - ESSENTIAL (PRIMARY) HYPERTENSION (6) S/P MVR (mitral valve replacement) Assessment/Plan: cardiology following Code(s): Z95.2 - PRESENCE OF PROSTHETIC HEART VALVE (7) Prophylactic measure Assessment/Plan: physical therapy Code(s): Z29.9 - ENCOUNTER FOR PROPHYLACTIC MEASURES, UNSPECIFIED (8) DVT prophylaxis Assessment/Plan: on coumadin Code(s): Z29.9 - ENCOUNTER FOR PROPHYLACTIC MEASURES, UNSPECIFIED (9) Severe malnutrition Assessment/Plan: per dietary, patient bmi suggest overweight, but patient exhibits severe malnutrition based on chronic illness, poor high salt intake and food choices, poor eating habits and fluid retention. on lasix 100 bid iv for chf. has hypomagnesium and currently on supplements Code(s): E43 - UNSPECIFIED SEVERE PROTEIN-CALORIE MALNUTRITION This patient is new to me today: No Emergency Visit: Yes ED Registration Date: 08/01/19 Care time: The patient presented to the Emergency Department on the above date and was hospitalized for further evaluation of their emergent condition. Critical Care patient: No - Discharge Referral Referred to [facility] No
[2019-08-10] MEDS ORDERED: FUROSEMIDE 40 MG TABLET (FP) PO SCH (14:00)
[2019-08-10 14:30] VITALS: BP 110/57; PULSE 84; TEMP 98.4
[2019-08-11] MEDS ORDERED: WARFARIN NA 5 MG TABLET (UD) PO SCH (18:00)
== END 2019-08-10 14:50 | disposition home health service (06) | DRG 291 ==
LOC: JER 11:51 → JERBED 13:03 → OBSVTOIN 13:58 → J4W 18:00
PROVIDERS: ATTEND Nurse Practitioner Family
DX: I11.0 Hypertensive heart disease with heart failure (principal); I50.31 Acute diastolic (congestive) heart failure; E43 Unspecified severe protein-calorie malnutrition; I31.3 Pericardial effusion (noninflammatory); I48.91 Unspecified atrial fibrillation; B19.20 Unspecified viral hepatitis C without hepatic coma; Z68.25 Body mass index [BMI] 25.0-25.9, adult; R07.9 Chest pain, unspecified; Z95.2 Presence of prosthetic heart valve
CPT/HCPCS: 36415; 71045-TC-FY; 80053; 80162; 81003; 82550; 83735; 83880; 84436; 84443; 84480; 84484; 85025; 85610; 85730; 87086; 93005; 93010; 93306-TC; 94010; 94761; 97116-GP; 97161-GP; 99285-25; G0378

== ENCOUNTER 2019-09-15 04:41 | Day surgery (SDC) | payer OTHER ==
[2019-09-14 17:32] VITALS: BMI 25.0
[2019-09-15] MEDS ORDERED: LIDOCAINE HCL 1%, 10 MG/ML (20ML VIAL) ONE (08:56)
[2019-09-15] MEDS ORDERED: HEPARIN NA (PORCINE) 5,000 UNITS/ML 1ML VIAL ONE (08:56)
--- NOTE | 2019-09-15 09:26 | HP ---
Admitting History and Physical - Admission Chief Complaint: right lower extremity claudication less than one block Limitations to Obtaining History: No Limitations - Past Medical History Cardiovascular: Yes: HTN Hepatobiliary: Yes: Cirrhosis, Hepatitis C ...: No - Past Surgical History Past Surgical History: Yes: Appendectomy, Oopherectomy, Valve Replacement - Smoking History Smoking history: Former smoker Have you smoked in the past 12 months: Yes Aproximately how many cigarettes per day: 10 If you are a former smoker, when did you quit?: 10 months ago - Alcohol/Substance Use Hx Alcohol Use: No - Social History ADL: Family Assistance Occupation: retired History of Recent Travel: No Home Medications - Allergies Allergies/Adverse Reactions: Allergies Allergy/AdvReac Type Severity Reaction Status Date / Time No Known Allergies Allergy Verified 09/15/19 07:38 - Home Medications Home Medications: Ambulatory Orders Cholecalciferol (Vitamin D3) [Vitamin D3] 2,000 unit PO DAILY 04/12/15 Pantoprazole Sodium [Protonix -] 40 mg PO DAILY 04/12/15 Clopidogrel Bisulfate [Plavix -] 75 mg PO DAILY #30 tablet 03/01/19 Diltiazem Cd [Cardizem Cd -] 240 mg PO DAILY #90 cap.cd.24h 08/10/19 Spironolactone [Aldactone] 25 mg PO DAILY #90 tablet 08/10/19 Furosemide [Lasix -] 20 mg PO DAILY 09/05/19 Magnesium Oxide [Mag-Ox -] 400 mg PO DAILY 09/05/19 Metoprolol Succinate [Toprol XL -] 50 mg PO DAILY PRN 09/05/19 Warfarin Na [Coumadin -] 2 mg PO DAILY@1800 09/05/19 Review of Systems - Review of Systems Constitutional: reports: No Symptoms Eyes: reports: No Symptoms HENT: reports: No Symptoms Neck: reports: No Symptoms Cardiovascular: reports: No Symptoms Respiratory: reports: No Symptoms Gastrointestinal: reports: No Symptoms Genitourinary: reports: No Symptoms Musculoskeletal: reports: No Symptoms Integumentary: reports: No Symptoms Neurological: reports: No Symptoms Hematology/Lymphatic: reports: No Symptoms Psychiatric: reports: No Symptoms Physical Examination Vital Signs: Vital Signs Temperature 97.4 F L 09/15/19 07:28 Pulse Rate 93 H 09/15/19 07:28 Respiratory Rate 18 09/15/19 07:28 Blood Pressure 120/76 09/15/19 07:28 O2 Sat by Pulse Oximetry (%) 97 09/15/19 07:45 Constitutional: Yes: Well Nourished, No Distress, Calm Eyes: Yes: WNL, Conjunctiva Clear, EOM Intact HENT: Yes: WNL, Atraumatic, Normocephalic Neck: Yes: WNL, Supple, Trachea Midline Cardiovascular: Yes: WNL, Regular Rate and Rhythm Respiratory: Yes: WNL, Regular, CTA Bilaterally Gastrointestinal: Yes: WNL, Normal Bowel Sounds Musculoskeletal: Yes: WNL Extremities: Yes: WNL Edema: No Peripheral Pulses WNL: No Integumentary: Yes: WNL Neurological: Yes: WNL, Alert, Oriented ...Motor Strength: WNL Psychiatric: Yes: WNL Problem List - Problems (1) Claudication of right lower extremity Assessment/Plan: right iliac artery angiogram today Code(s): I73.9 - PERIPHERAL VASCULAR DISEASE, UNSPECIFIED
[2019-09-15] MEDS ORDERED: MIDAZOLAM HCL 2 MG/2 ML SINGLE DOSE VIAL ONE ×2 (09:39)
[2019-09-15] MEDS ORDERED: ceFAZolin 2 GRAM PREMIX BAG IVPB ONE (09:40)
[2019-09-15] MEDS ORDERED: LIDOCAINE HCL 1%, 10 MG/ML (20ML VIAL) NR ONE ×2 (09:52)
[2019-09-15] MEDS ORDERED: HEPARIN NA (PORCINE) 5,000 UNITS/ML 1ML VIAL SQ ONE (10:00)
[2019-09-15] MEDS ORDERED: PROPOFOL 20 ML ONE (10:06)
[2019-09-15] MEDS ORDERED: ONDANSETRON 4 MG/2 ML VIAL IVPUSH PRN (10:42)
[2019-09-15] MEDS ORDERED: LACTATED RINGERS SOLUTION 1,000 ML IV SCH (10:45)
--- NOTE | 2019-09-15 10:53 | OP ---
Operative Note - Note: Operative Date: 09/15/19 Pre-Operative Diagnosis: right lower ext claudication Operation: right lower extremity angiogram, right iliac artery angioplasty with stent Findings: right ext iliac artery 80% stenosis Post-Operative Diagnosis: Same as Pre-op Surgeon: Erasmo Mosley Anesthesia: Fractional Estimated Blood Loss (mls): 40 Operative Report Dictated: Yes
[2019-09-15] MEDS ORDERED: ENOXAPARIN NA (PORCINE) 80 MG/0.8 ML DISP.SYRIN SQ SCH (11:30)
[2019-09-15 12:12] LABS: INR 2.11 (0.83-1.09)
[2019-09-15 13:00] LABS: ACTIVATED PTT > 400.0 SECONDS (25.2-36.5)
[2019-09-15 16:03] VITALS: BP 107/50; PULSE 74; TEMP 97.5
--- NOTE | 2019-09-27 08:25 | OP ---
DATE OF OPERATION: 09/15/2019 PREOPERATIVE DIAGNOSIS: Right lower extremity claudication. POSTOPERATIVE DIAGNOSIS: Right lower extremity claudication. PROCEDURE: Right lower extremity angiogram, right iliac artery angioplasty with stent placement. FINDINGS: Right external iliac artery has an 80% stenosis. SURGEON: Erasmo Polk DO ANESTHESIA: Fractional. BLOOD LOSS: 40 mL. Patient complains of claudication less than 1 block of the right lower extremity. She has a preoperative external iliac artery is severely diseased. Patient went to her television analyzer and medical doctor and obtained clearance for angiogram. Patient then came into Ambulatory Surgery. Patient was consented for the procedure, understanding all risks, benefits, and alternatives and taken to the operating room. Once in the operating room, was laid on the operating table in the supine manner. The right and left groins were prepped and draped in the sterile surgical manner. We then injected 10 mL of lidocaine 1% over the right common femoral artery. We then used our micropuncture needle and punctured the right common femoral artery. Micropuncture wire was inserted. Micropuncture sheath was inserted. A traditional 6-Indonesian sheath was inserted. We then inserted a 0.035 stiff guidewire. We then shot an angiogram from the sheath showing that the external iliac artery had an 80% stenosis. We then used a 0.035 stiff guidewire with a 90 Quick-Cross catheter. We were able to cross our external artery and placed a wire into the aorta. We then went ahead and used a 6 x 6 LifeStent and we used a 6 balloon to move the stent into place. Once that was completed, we then shot another angiogram showing that the external iliac artery was now patent. Patient received 5000 units of IV heparin prior to ballooning and placing the stent. We then shot an angiogram of the right lower extremity showing that there was good brisk flow from the common femoral artery down into the profunda, into the SFA popliteal artery. The patient had 2-vessel run off into the foot. At this point, we decided no more intervention was needed. There was good injection. The right external iliac artery was now patent. We removed our sheath and StarClose device was deployed over the right common femoral artery. Pressure was held for 5 minutes until there was no more bleeding. The area was cleaned and dried. Dermabond was placed. Patient tolerated the procedure with no complications. Patient had a nice, strong palpable femoral pulse now, which she did not have at the start of the procedure. Patient was transferred to the PACU in stable condition. ERASMO POLK DO [id number]
== END 2019-09-15 16:03 | disposition home or self-care (01) ==
LOC: JASU-SURG 04:41
PROVIDERS: ATTEND Surgery Vascular Surgery
PROC: 047H3DZ Dilation of Right External Iliac Artery with Intraluminal Device, Percutaneous Approach (ICD-10-PCS; principal; 2019-09-15 09:00)
DX: I70.211 Atherosclerosis of native arteries of extremities with intermittent claudication, right leg (principal); I10 Essential (primary) hypertension; Z87.891 Personal history of nicotine dependence
CPT/HCPCS: 37221; C1877; 36415; 76000-TC-FY; 85610; 85730; 94760; J1644

== ENCOUNTER 2019-09-16 06:05 | Emergency (ER) | payer OTHER ==
[2019-09-16 06:38] VITALS: BMI 25.4
--- NOTE | 2019-09-16 07:17 | PDOC ---
History of Present Illness - General Chief Complaint: Laceration Stated Complaint: BLEEDING S/P POCEDURE Time Seen by Provider: 09/16/19 07:17 History Source: Patient - History of Present Illness Initial Comments: 09/16/19 09:09 Ms. Nieves is a 73 y/o woman w/hx afib w/RVR on coumadin, mitral valve replacement (2011), presenting one day s/p angioplasty with bleeding from site. She reports that the procedure was completed yesterday by Dr. Mosley (R iliac angioplasty w/stent). She reports taking her coumadin yesterday evening after the procedure. She reports noticing slow oozing from the site at her R inguinal crease over night, and covered it with a cloth bandage and tape. She reports concern that the bleeding has continued since last night. She denies any weakness, palpitations, chest pain, shortness of breath, Past History - Past Medical History Allergies/Adverse Reactions: Allergies Allergy/AdvReac Type Severity Reaction Status Date / Time No Known Allergies Allergy Verified 09/15/19 07:38 Home Medications: Ambulatory Orders Cholecalciferol (Vitamin D3) [Vitamin D3] 2,000 unit PO DAILY 04/12/15 Pantoprazole Sodium [Protonix -] 40 mg PO DAILY 04/12/15 Clopidogrel Bisulfate [Plavix -] 75 mg PO DAILY #30 tablet 03/01/19 Diltiazem Cd [Cardizem Cd -] 240 mg PO DAILY #90 cap.cd.24h 08/10/19 Spironolactone [Aldactone] 25 mg PO DAILY #90 tablet 08/10/19 Furosemide [Lasix -] 20 mg PO DAILY 09/05/19 Magnesium Oxide [Mag-Ox -] 400 mg PO DAILY 09/05/19 Metoprolol Succinate [Toprol XL -] 50 mg PO DAILY PRN 09/05/19 Warfarin Na [Coumadin -] 2 mg PO DAILY@1800 09/05/19 Enoxaparin Sodium [Lovenox] 70 mg SQ BID #14 syringe 09/15/19 Anemia: No Asthma: No Cancer: No Cardiac Disorders: Yes (MV replacement 06/28/19) CVA: No COPD: No CHF: No Dementia: No Diabetes: No GI Disorders: No Disorders: No HTN: Yes Hypercholesterolemia: No Liver Disease: Yes (cirrhosis) Seizures: No Thyroid Disease: No - Surgical History Abdominal Surgery: No Appendectomy: Yes Cardiac Surgery: Yes (MV replacement 06/28/19) Cholecystectomy: No Lung Surgery: No Neurologic Surgery: Yes (BACK SURGERY) Orthopedic Surgery: Yes (BACK SURGERY) - Immunization History Immunization Up to Date: Yes - Psycho Social/Smoking Cessation Hx Smoking History: Never smoked Have you smoked in the past 12 months: No Number of Cigarettes Smoked Daily: 10 If you are a former smoker, when did you quit?: 10 months ago Information on smoking cessation initiated: No Hx Alcohol Use: No Drug/Substance Use Hx: No Substance Use Type: None Hx Substance Use Treatment: No Review of Systems - Review of Systems Able to Perform ROS?: Yes Comments:: 09/16/19 11:50 ROS: GENERAL/CONSTITUTIONAL: No fever or chills. No weakness. HEAD, EYES, EARS, NOSE AND THROAT: No change in vision. No ear pain or discharge. No sore throat. CARDIOVASCULAR: No chest pain or shortness of breath RESPIRATORY: No cough, wheezing, or hemoptysis. GASTROINTESTINAL: No nausea, vomiting, diarrhea or constipation. GENITOURINARY: No dysuria, frequency, or change in urination. MUSCULOSKELETAL: No joint or muscle swelling or pain. No neck or back pain. SKIN: No rash NEUROLOGIC: No headache, vertigo, loss of consciousness, or change in strength/ sensation. ENDOCRINE: No increased thirst. No abnormal weight change HEMATOLOGIC/LYMPHATIC: No anemia, easy bleeding, or history of blood clots. ALLERGIC/IMMUNOLOGIC: No hives or skin allergy. *Physical Exam - Vital Signs Last Vital Signs Temp Pulse Resp BP Pulse Ox 98.2 F 101 H 20 120/91 96 09/16/19 06:34 09/16/19 06:34 09/16/19 06:34 09/16/19 06:34 09/16/19 06:34 - Physical Exam 09/16/19 11:51 PE: GENERAL: Awake, alert, and fully oriented, in no acute distress HEAD: No signs of trauma, normocephalic, atraumatic EYES: PERRLA, EOMI, sclera anicteric, conjunctiva clear ENT: Auricles normal inspection, hearing grossly normal, nares patent, oropharynx clear without exudates. Moist mucosa NECK: Normal ROM, supple, no lymphadenopathy, JVD, or masses LUNGS: No distress, speaks full sentences, clear to auscultation bilaterally HEART: Regular rate and rhythm, normal S1 and S2, no murmurs, rubs or gallops, peripheral pulses normal and equal bilaterally. ABDOMEN: Soft, nontender, normoactive bowel sounds. No guarding, no rebound. No masses EXTREMITIES : Slow oozing bleed from puncture site at R inguinal crease. Otherwise Normal inspection, Normal range of motion, no edema. No clubbing or cyanosis NEUROLOGICAL: Cranial nerves II through XII grossly intact. Normal speech, normal gait, no focal sensorimotor deficits SKIN: Warm, Dry, normal turgor, no rashes or lesions noted Procedures - Laceration/Wound Repair Right Lower Proximal Groin Wound Length: to 2.5 cm Wound Explored: clean Wound's Depth, Shape: superficial Irrigated w/ Saline: Yes Betadine Prep: No Wound Repaired With: Sutures Suture Size/Type: 3:0 Number of Sutures: 1 ED Treatment Course - LABORATORY CBC & Chemistry Diagram: 09/16/19 08:16 09/16/19 08:16 Medical Decision Making - Medical Decision Making 09/16/19 11:53 73F w/hx afib on coumadin, lovenox, HTN, s/p R angioplasty with stenting yesterday p/w oozing blood from surgical site, likely post-op bleeding due to anticoagulation. No signs of shock, no evolving hematoma. Plan: Pressure dressing CBC CMP PT/INR APTT Consult Dr. Mosley (vascular) Dispo: Likely discharge --- Hg - 10.4 INR - 1.6 APTT - 51 --- On reassessment, bleeding continues slow oozing, soaking initial dressing. Plan for suture repair of site. --- Bleeding puncture site approximated with x1 3-0 non-absorbable suture. See procedure note. Bleeding stopped immediately. --- Case discussed with Dr. Mosley. Plan for discharge with close follow up. Plan to continue coumadin, lovenox. Patient reports difficulty injecting lovenox. Dose ordered here, nurse discussed how to administer with patient. Bleeding has stopped at this time. Plan for discharge with close follow up. Discharge - Discharge Information Problems reviewed: Yes Clinical Impression/Diagnosis: Bleeding Condition: Stable Disposition: HOME - Admission No - Follow up/Referral Referrals: Christian Zeng MD [Primary Care Provider] - - Patient Discharge Instructions Patient Printed Discharge Instructions: DI for Laceration Repair, DI for Post- Surgical Bleeding Additional Instructions: You were seen in the ER for bleeding after a surgery. Your bloodwork was normal. The bleeding was stopped with a non-absorbable stitch. The suture needs to be removed in 7-10 days. Please see your primary care provider in 7-10 days to have the suture removed. If you cannot see your primary care provider in that time we can remove the suture here in the ER. Please return to the ER if you develop chest pain, shortness of breath, weakness, or if the bleeding continues. Continue the lovenox and the coumadin. - Post Discharge Activity
--- NOTE | 2019-09-16 07:47 | PDOC ---
Attending Attestation - Resident Resident Name: Diego Vega - ED Attending Attestation I have performed the following: I have examined & evaluated the patient, The case was reviewed & discussed with the resident, I agree w/resident's findings & plan, Exceptions are as noted - HPI HPI: 09/16/19 08:53 73 years old with past medical history significant for hypertension mitral stenosis with bio MVR and TV repair pulmonary hypertension PAD, A. fib status post angioplasty yesterday to right leg presents to the ED with oozing from catheterization site no evidence of hematoma No other complaints at this time - Physicial Exam PE: 09/16/19 08:53 Vitals: Triage Vital signs reviewed General Appearance: No acute distress, well nourished well developed, Cardiac: Regular rate and rhythym, no murmurs, no rubs, no gallops, Lungs: Clear to auscultation bilateral, good air movement bilaterally, Abdomen: Soft, non distended, normal bowel sounds, non tender to palpation Extremities: Full range of motion to all extremities, no cyanosis, clubbing, or edema Skin: Warm and dry, no rashes or lesions, no rash, no petechiae puncture site to right groin small amount of oozing no obvious hematoma or bruising. Psych: Normal mood, normal affect - Medical Decision Making 09/16/19 15:42 Pressure dressing applied labs checked labs within normal limits still with slight lose 1 stitch placed Case discussed with vascular surgeon stable for outpatient discharge Findings, the need for follow-up and strict return instructions discussed with patient.
[2019-09-16 08:49] LABS: BASO % 0.9 % (0-2.0); EOS % 1.4 % (0-4.5); HEMOGLOBIN 10.4 GM/dL (10.7-15.3); LYMPH % 19.1 % (8-40); MCH 24.4 pg (25.7-33.7); MCHC 32.6 g/dl (32.0-36.0); MEAN CELL VOLUME 74.8 fl (80-96); MEAN PLT VOLUME 7.5 fl (7.5-11.1); MONO % 10.3 % (3.8-10.2); NEUT % 68.3 % (42.8-82.8); PLATELET COUNT 202 K/MM3 (134-434); RBC 4.28 M/mm3 (3.60-5.2); RDW 19.1 % (11.6-15.6); WHITE BLOOD COUNT 6.1 K/mm3 (4.0-10.0)
[2019-09-16 09:15] LABS: ALBUMIN 3.4 g/dl (3.4-5.0); BILIRUBIN,TOTAL 0.3 mg/dL (0.2-1); CALCIUM 9.4 mg/dL (8.5-10.1); CREATININE 0.9 mg/dL (0.55-1.3); POTASSIUM 4.6 mmol/L (3.5-5.1); TOT PROT 7.9 g/dl (6.4-8.2)
[2019-09-16 09:24] LABS: INR 1.6 (0.83-1.09)
[2019-09-16] MEDS ORDERED: ENOXAPARIN NA (PORCINE) 80 MG/0.8 ML DISP.SYRIN SQ ONE (11:01)
[2019-09-16] MEDS ORDERED: ENOXAPARIN NA (PORCINE) 40 MG/0.4 ML DISP.SYRIN SQ ONE (11:05)
[2019-09-16] MEDS ORDERED: ENOXAPARIN NA (PORCINE) 30 MG/0.3 ML DISP.SYRIN SQ ONE (11:05)
[2019-09-16 12:11] VITALS: BP 125/80; PULSE 88; TEMP 98.1
== END 2019-09-16 11:30 | disposition home or self-care (01) ==
LOC: JER 06:05
DX: L76.22 Postprocedural hemorrhage of skin and subcutaneous tissue following other procedure (principal); I25.10 Atherosclerotic heart disease of native coronary artery without angina pectoris; I10 Essential (primary) hypertension; Z95.5 Presence of coronary angioplasty implant and graft; I48.20 Chronic atrial fibrillation, unspecified; Z79.01 Long term (current) use of anticoagulants; Z95.2 Presence of prosthetic heart valve; K74.60 Unspecified cirrhosis of liver
CPT/HCPCS: 36415; 80053; 85025; 85610; 85730; 99284-25

== ENCOUNTER → 2020-07-06 | Day surgery (SDC) | payer OTHER ==
[2020-07-05 16:34] VITALS: BMI 25.0
[~2020-07-06] MED LIST changes: +ACETAMINOPHEN INJECTION 100 ML IVPB ONE; +HEPARIN NA (PORCINE) 5,000 UNITS/ML 1ML VIAL ONE; -HEPARIN NA (PORCINE) 5,000 UNITS/ML 1ML VIAL SQ ONE; -LIDOCAINE HCL 1%, 10 MG/ML (20ML VIAL) INF ONE; +LIDOCAINE HCL 1%, 10 MG/ML (20ML VIAL) ONE; +MIDAZOLAM HCL 2 MG/2 ML SINGLE DOSE VIAL ONE; +THROMBIN (BOVINE) 5,000 UNIT VIAL TP ONE
[2020-07-06 13:21] VITALS: BP 114/89; PULSE 65; TEMP 96.9
[2020-07-06 13:34] LABS: INR 1.94 (0.83-1.09); PROTHROMBIN TIME (PATIENT) 23.4 SEC (9.7-13.0)
[2020-07-06 13:37] LABS: ACTIVATED PTT 45.5 SECONDS (25.2-36.5)
== END | disposition home or self-care (01) ==
LOC: JASU-SURG 05:16
PROVIDERS: ATTEND Surgery Vascular Surgery
DX: Z53.8 Procedure and treatment not carried out for other reasons (principal)
CPT/HCPCS: 36415; 85610; 85730; J0131; J1644

== ENCOUNTER 2020-07-09 05:20 | Day surgery (SDC) | payer OTHER ==
[2020-07-06 15:47] VITALS: BMI 25.0
[2020-07-09] MEDS ORDERED: ceFAZolin SODIUM 1 GM VIAL IVPB ONE (11:31)
[2020-07-09 12:27] LABS: INR 1.2 (0.83-1.09); PROTHROMBIN TIME (PATIENT) 14.4 SEC (9.7-13.0)
[2020-07-09 12:30] LABS: ACTIVATED PTT 37.8 SECONDS (25.2-36.5)
[2020-07-09] MEDS ORDERED: LIDOCAINE HCL 1%, 10 MG/ML (20ML VIAL) INF ONE ×2 (13:31)
[2020-07-09] MEDS ORDERED: HEPARIN NA (PORCINE) 5,000 UNITS/ML 1ML VIAL TP ONE (13:31)
[2020-07-09] MEDS ORDERED: oxyCODONE HCL 5 MG TABLET PO PRN (14:30)
[2020-07-09] MEDS ORDERED: ONDANSETRON 4 MG/2 ML VIAL IVPUSH PRN (14:30)
[2020-07-09] MEDS ORDERED: ACETAMINOPHEN 500 MG TABLET (FP) PO ONE (14:31)
[2020-07-09] MEDS ORDERED: ACETAMINOPHEN 1000 MG/100 ML VIAL (NON FORMULARY) IVPB ONE (14:36)
[2020-07-09] MEDS ORDERED: oxyCODONE HCL 5 MG TABLET ONE (16:01)
[2020-07-09 16:50] VITALS: TEMP 97.1
[2020-07-09 17:59] VITALS: BP 96/59; PULSE 58
== END 2020-07-09 17:50 | disposition home or self-care (01) ==
LOC: JASU-SURG 05:20
PROVIDERS: ATTEND Surgery Vascular Surgery
PROC: 047L3ZZ Dilation of Left Femoral Artery, Percutaneous Approach (ICD-10-PCS; principal; 2020-07-09 13:30)
DX: I70.212 Atherosclerosis of native arteries of extremities with intermittent claudication, left leg (principal)
CPT/HCPCS: 37224; C1885; 36415; 76000-TC-FY; 85610; 85730; 94760; J0131; J1644

== ENCOUNTER 2020-12-12 17:28 | Inpatient (IN) | payer OTHER ==
[2020-12-12 18:58] LABS: BASO % 1.1 % (0-2.0); EOS % 1.8 % (0-4.5); HEMATOCRIT 35.9 % (32.4-45.2); HEMOGLOBIN 11.6 GM/dL (10.7-15.3); LYMPH % 20.3 % (8-40); MCH 24.5 pg (25.7-33.7); MCHC 32.5 g/dl (32.0-36.0); MEAN CELL VOLUME 75.4 fl (80-96); MEAN PLT VOLUME 8.1 fl (7.5-11.1); MONO % 8.6 % (3.8-10.2); NEUT % 68.2 % (42.8-82.8); PLATELET COUNT 239 K/MM3 (134-434); RBC 4.75 M/mm3 (3.60-5.2); RDW 18.4 % (11.6-15.6); WHITE BLOOD COUNT 8.7 K/mm3 (4.0-10.0)
[2020-12-12 19:03] LABS: INR 2.88 (0.83-1.09); PROTHROMBIN TIME (PATIENT) 33.8 SEC (9.7-13.0)
[2020-12-12] MEDS ORDERED: HEPARIN NA (PORCINE) 5,000 UNITS/ML 1ML VIAL IVPUSH PRN ×2 (19:29)
[2020-12-12 19:45] LABS: CALCIUM 9.2 mg/dL (8.5-10.1); CHLORIDE 102 mmol/L (98-107); SODIUM 137 mmol/L (136-145)
[2020-12-12 19:46] LABS: ALBUMIN 3.8 g/dl (3.4-5.0); ANION GAP 6 MMOL/L (8-16); BLOOD UREA NITROGEN 27.6 mg/dL (7-18); CO2 28 mmol/L (21-32); GLUCOSE,RANDOM 94 mg/dL (74-106)
[2020-12-12 19:50] LABS: BILIRUBIN,TOTAL 0.3 mg/dL (0.2-1); CREATININE 1.5 mg/dL (0.55-1.3); SGOT/AST 21 U/L (15-37); SGPT/ALT 23 U/L (13-61)
[2020-12-12 19:51] LABS: TOT PROT 9.1 g/dl (6.4-8.2)
[2020-12-12 19:53] LABS: ALK PHOS 164 U/L (45-117)
[2020-12-12] MEDS ORDERED: HEPARIN INFUSION - 25,000 UNITS/500 ML INFUS.BAG IVPB ONE (20:11)
[2020-12-12] MEDS ORDERED: HEPARIN NA (PORCINE) 5,000 UNITS/ML 1ML VIAL ONE (20:11)
[2020-12-12 20:14] LABS: ACTIVATED PTT 49.8 SECONDS (25.2-36.5)
[2020-12-12] MEDS: HEPARIN INFUSION - 25,000 UNITS/500 ML INFUS.BAG IVPB SCH (20:24)
[2020-12-12] MEDS ORDERED: ACETAMINOPHEN WITH CODEINE 300MG/30MG TABLET PO PRN (22:30)
[2020-12-12 23:49] VITALS: BMI 27.1
[2020-12-13] MEDS: LEVOTHYROXINE NA 25 MCG TABLET (FP) PO SCH (06:04)
[2020-12-13 07:41] LABS: BASO % 0.8 % (0-2.0); EOS % 2.3 % (0-4.5); HEMATOCRIT 31.7 % (32.4-45.2); HEMOGLOBIN 10.5 GM/dL (10.7-15.3); MCH 24.4 pg (25.7-33.7); MEAN PLT VOLUME 7.8 fl (7.5-11.1); MONO % 9.7 % (3.8-10.2); NEUT % 66.2 % (42.8-82.8); PLATELET COUNT 176 K/MM3 (134-434); RBC 4.28 M/mm3 (3.60-5.2); WHITE BLOOD COUNT 6.9 K/mm3 (4.0-10.0)
[2020-12-13 08:59] LABS: ALBUMIN 3.3 g/dl (3.4-5.0); BILIRUBIN,TOTAL 0.4 mg/dL (0.2-1); BLOOD UREA NITROGEN 22.1 mg/dL (7-18); CALCIUM 8.4 mg/dL (8.5-10.1); TOT PROT 7.4 g/dl (6.4-8.2)
[2020-12-13] MEDS: FUROSEMIDE 20 MG TABLET (FP) PO SCH (10:16)
[2020-12-13 11:43] LABS: RETICULOCYTES 1.71 % (0.5-1.5)
[2020-12-13 19:13] LABS: INR 2.15 (0.83-1.09); PROTHROMBIN TIME (PATIENT) 25.9 SEC (9.7-13.0)
[2020-12-13] MEDS: traZODone HCL 50 MG TABLET (FP) PO SCH (21:11)
[2020-12-13] MEDS ORDERED: WARFARIN NA 2 MG TABLET PO ONE (22:21)
[2020-12-13] MEDS: HEPARIN INFUSION - 25,000 UNITS/500 ML INFUS.BAG IVPB SCH (22:57)
[2020-12-14] MEDS: HEPARIN INFUSION - 25,000 UNITS/500 ML INFUS.BAG IVPB SCH ×3 (05:43→20:21)
[2020-12-14] MEDS: LEVOTHYROXINE NA 25 MCG TABLET (FP) PO SCH (06:12)
[2020-12-14 09:09] LABS: ACTIVATED PTT 63.5 SECONDS (25.2-36.5)
[2020-12-14 09:13] LABS: HEMATOCRIT 31.8 % (32.4-45.2); HEMOGLOBIN 10.3 GM/dL (10.7-15.3); MCH 24.2 pg (25.7-33.7); MCHC 32.4 g/dl (32.0-36.0); MEAN CELL VOLUME 74.7 fl (80-96); MEAN PLT VOLUME 8.2 fl (7.5-11.1); PLATELET COUNT 193 K/MM3 (134-434); RBC 4.25 M/mm3 (3.60-5.2); RDW 18.1 % (11.6-15.6); WHITE BLOOD COUNT 7.3 K/mm3 (4.0-10.0)
[2020-12-14] MEDS: FUROSEMIDE 20 MG TABLET (FP) PO SCH (09:56)
[2020-12-14 20:38] LABS: INR 1.89 (0.83-1.09); PROTHROMBIN TIME (PATIENT) 22.5 SEC (9.7-13.0)
[2020-12-14] MEDS: traZODone HCL 50 MG TABLET (FP) PO SCH (21:28)
[2020-12-14] MEDS ORDERED: WARFARIN NA 2 MG TABLET PO ONE (21:46)
[2020-12-15] MEDS: LEVOTHYROXINE NA 25 MCG TABLET (FP) PO SCH (06:15)
[2020-12-15] MEDS: HEPARIN INFUSION - 25,000 UNITS/500 ML INFUS.BAG IVPB SCH (08:05)
[2020-12-15 09:25] LABS: HEMOGLOBIN 10.4 GM/dL (10.7-15.3); MCH 24.3 pg (25.7-33.7); MCHC 32.5 g/dl (32.0-36.0); MEAN CELL VOLUME 74.9 fl (80-96); MEAN PLT VOLUME 7.9 fl (7.5-11.1); PLATELET COUNT 201 K/MM3 (134-434); RBC 4.27 M/mm3 (3.60-5.2); RDW 18.1 % (11.6-15.6); WHITE BLOOD COUNT 6.9 K/mm3 (4.0-10.0)
[2020-12-15 09:31] LABS: ALBUMIN 3.4 g/dl (3.4-5.0); BLOOD UREA NITROGEN 21.2 mg/dL (7-18)
[2020-12-15] MEDS: FUROSEMIDE 20 MG TABLET (FP) PO SCH (09:31)
[2020-12-15 09:33] LABS: ACTIVATED PTT 66.8 SECONDS (25.2-36.5)
[2020-12-15 09:36] LABS: BILIRUBIN,TOTAL 0.6 mg/dL (0.2-1); TOT PROT 7.6 g/dl (6.4-8.2)
[2020-12-15 10:18] LABS: INR 1.71 (0.83-1.09); PROTHROMBIN TIME (PATIENT) 20.7 SEC (9.7-13.0)
[2020-12-15 10:26] LABS: INR 1.69 (0.83-1.09); PROTHROMBIN TIME (PATIENT) 20.5 SEC (9.7-13.0)
[2020-12-15] MEDS: SPIRONOLACTONE 25 MG TABLET PO SCH (18:26)
[2020-12-15 19:07] LABS: FREE KAPPA,SERUM 79.6 mg/L (3.3-19.4)
[2020-12-15] MEDS ORDERED: WARFARIN NA 7.5 MG TABLET PO ONE (19:15)
[2020-12-15] MEDS: traZODone HCL 50 MG TABLET (FP) PO SCH (22:46)
[2020-12-16] MEDS: LEVOTHYROXINE NA 25 MCG TABLET (FP) PO SCH (06:33)
[2020-12-16 09:50] LABS: HEMATOCRIT 33.2 % (32.4-45.2); HEMOGLOBIN 10.8 GM/dL (10.7-15.3); MCH 24.5 pg (25.7-33.7); MCHC 32.4 g/dl (32.0-36.0); MEAN CELL VOLUME 75.5 fl (80-96); MEAN PLT VOLUME 7.9 fl (7.5-11.1); PLATELET COUNT 205 K/MM3 (134-434); RBC 4.39 M/mm3 (3.60-5.2); RDW 18.1 % (11.6-15.6); WHITE BLOOD COUNT 7.2 K/mm3 (4.0-10.0)
[2020-12-16] MEDS: SPIRONOLACTONE 25 MG TABLET PO SCH (09:50)
[2020-12-16] MEDS: FUROSEMIDE 20 MG TABLET (FP) PO SCH (09:50)
[2020-12-16 09:56] LABS: INR 2.02 (0.83-1.09); PROTHROMBIN TIME (PATIENT) 23.9 SEC (9.7-13.0)
[2020-12-16] MEDS ORDERED: WARFARIN NA 7.5 MG TABLET PO ONE (10:07)
[2020-12-16] MEDS: HEPARIN INFUSION - 25,000 UNITS/500 ML INFUS.BAG IVPB SCH (11:42)
[2020-12-16] MEDS ORDERED: WARFARIN NA 2 MG TABLET PO ONE (18:00)
[2020-12-16] MEDS: traZODone HCL 50 MG TABLET (FP) PO SCH (21:10)
[2020-12-17] MEDS: LEVOTHYROXINE NA 25 MCG TABLET (FP) PO SCH (06:59)
[2020-12-17 09:45] LABS: HEMATOCRIT 33.3 % (32.4-45.2); HEMOGLOBIN 10.9 GM/dL (10.7-15.3); MCH 24.6 pg (25.7-33.7); MCHC 32.8 g/dl (32.0-36.0); MEAN CELL VOLUME 75.1 fl (80-96); PLATELET COUNT 214 K/MM3 (134-434); RBC 4.44 M/mm3 (3.60-5.2); RDW 18.3 % (11.6-15.6); WHITE BLOOD COUNT 7.4 K/mm3 (4.0-10.0)
[2020-12-17] MEDS: FUROSEMIDE 20 MG TABLET (FP) PO SCH (10:58)
[2020-12-17] MEDS: HEPARIN INFUSION - 25,000 UNITS/500 ML INFUS.BAG IVPB SCH (10:58)
[2020-12-17] MEDS: SPIRONOLACTONE 25 MG TABLET PO SCH (10:58)
[2020-12-17] MEDS ORDERED: FERROUS SO4 325 MG TABLET (FP) PO SCH ×2 (11:30→11:37)
[2020-12-17 13:28] VITALS: BP 111/60; PULSE 79; TEMP 97.7
[2020-12-17 16:03] LABS: INR 3.56 (0.83-1.09); PROTHROMBIN TIME (PATIENT) 42.2 SEC (9.7-13.0)
== END 2020-12-17 18:23 | disposition home or self-care (01) | DRG 300 ==
LOC: JER 17:28 → JERBED 19:25 → J6S 22:49
PROVIDERS: ADMIT Internal Medicine; ATTEND Internal Medicine
DX: I82.622 Acute embolism and thrombosis of deep veins of left upper extremity (principal); I50.32 Chronic diastolic (congestive) heart failure; J84.9 Interstitial pulmonary disease, unspecified; I48.91 Unspecified atrial fibrillation; Z95.2 Presence of prosthetic heart valve; I73.9 Peripheral vascular disease, unspecified; E88.09 Other disorders of plasma-protein metabolism, not elsewhere classified; I10 Essential (primary) hypertension
CPT/HCPCS: 36415; 71046-TC-FY; 71250-TC; 80053; 82378; 82550; 82728; 82784; 83036; 83540; 83550; 83880; 83883; 84443; 84484; 85025; 85027; 85045; 85610; 85730; 86850; 86900; 86901; 93005; 93010; 99285-25; C9803; J1644; U0003; U0005

== ENCOUNTER 2021-02-07 04:40 | Day surgery (SDC) | payer OTHER ==
[2021-02-05 17:29] VITALS: BMI 26.4
[2021-02-07] MEDS ORDERED: HEPARIN NA (PORCINE) 5,000 UNITS/ML 1ML VIAL ONE (07:09)
[2021-02-07] MEDS ORDERED: LIDOCAINE HCL 1%, 10 MG/ML (20ML VIAL) ONE (07:09)
[2021-02-07] MEDS ORDERED: MIDAZOLAM HCL 2 MG/2 ML SINGLE DOSE VIAL ONE (07:51)
[2021-02-07] MEDS ORDERED: PROPOFOL 20 ML ONE ×3 (07:51)
[2021-02-07] MEDS ORDERED: ceFAZolin SODIUM 1 GM VIAL ONE (07:58)
[2021-02-07] MEDS ORDERED: LIDOCAINE HCL 1%, 10 MG/ML (20ML VIAL) INF ONE (08:06)
[2021-02-07] MEDS ORDERED: ONDANSETRON 4 MG/2 ML VIAL IVPUSH PRN (10:24)
[2021-02-07] MEDS ORDERED: LACTATED RINGERS SOLUTION 1,000 ML IV SCH (10:30)
[2021-02-07 10:40] VITALS: TEMP 98.4
[2021-02-07] MEDS ORDERED: oxyCODONE HCL 5 MG TABLET PO ONE (12:15)
[2021-02-07] MEDS ORDERED: oxyCODONE HCL 5 MG TABLET ONE (12:17)
[2021-02-07 13:39] VITALS: BP 120/60; PULSE 70
== END 2021-02-07 12:45 | disposition home or self-care (01) ==
LOC: JASU-SURG 04:40
PROVIDERS: ATTEND Surgery Vascular Surgery
PROC: 047L3Z1 Dilation of Left Femoral Artery using Drug-Coated Balloon, Percutaneous Approach (ICD-10-PCS; principal; 2021-02-07 07:30)
DX: I70.212 Atherosclerosis of native arteries of extremities with intermittent claudication, left leg (principal)
CPT/HCPCS: 37225; C2623; 76000-TC-FY; 94760; J1644